=== PATIENT | female | born 1940 | race Caucasian/White ===

== ENCOUNTER 2019-12-28 01:37 | Inpatient (IN) | payer MEDICARE, MEDICAID, SELFPAY ==
[2019-12-28] VITALS (22 sets, daily range): BP systolic 91–172; BP diastolic 50–110; PULSE 76–103; RESP 15–74; TEMP 36.2–37.2; O2SAT 90–100; BMI 28.1
--- NOTE | 2019-12-28 | SCC_ITS ---
Procedure Done: Open reduction internal fixation left hip with intramedullary device 68.0 seconds of fluoroscopic guidance, for a cumulative dose of 7.62 mGy, was provided to Dr. Austin by the radiology department. C-arm images of the LEFT hip were saved for the patient's permanent record. [facility]
--- NOTE | 2019-12-28 | XR_ITS ---
WS: [id number] C-ARM RADIOGRAPHS LEFT HIP; 3 IMAGES HISTORY: OR PICS COMPARISON: 12/28/2019 Intraoperative imaging during intramedullary willam and screw fixation of the LEFT hip fracture. XR/XR hip LT 2-3V wo/w pel* [id number] IMPRESSION: Intraoperative imaging during LEFT hip fixation.
--- NOTE | 2019-12-28 01:50 | ED_ITS ---
Documented by User: JANICE Coronel 12/28/19 02:32 HPI - General Adult General: Chief complaint: Fall Stated complaint: HIP PAIN POST FALL Time Seen by Provider: 12/28/19 01:46 History of Present Illness: HPI narrative: Patient states that she was walking with her walker tonight leaving the bathroom and she tripped and fell and landed on her left hip and was not able to get up she complains about left hip pain MD complaint: Left hip pain Onset (ago): minute(s) Location: pelvis Radiation: non-radiation Severity: moderate Severity scale (1-10): 6 Quality: aching Pain Consistency: constant Relieving factors: immobilization Exacerbating factors: movement Associated symptoms: Reports no associated symptoms; Deny chest pain, dyspnea, headache(s), nausea, rash or vomiting Review of Systems Const: Denies: fever, chills or body aches Eyes: Denies: change in vision or blurry vision ENMT: Denies: throat pain or nasal congestion Card: Denies: chest pain or shortness of breath on exertion Resp: Denies: shortness of breath, productive cough or non-productive cough GI: Denies: abdominal pain, nausea or vomiting Musc: Reports: joint pain (Left hip); Denies: extremity pain Skin/Breast: Denies: rash Neuro: Denies: headache Psych: Denies: anxiety or depression Fede/Lymph: Denies: easy bruising PFSH ED PFSH: Medical History (Updated 12/28/19 @ 03:48 by Robert Alfonso DO) Bifascicular block Chronic kidney disease (CKD), stage IV (severe) Degenerative joint disease Diabetes Dyslipidemia GERD (gastroesophageal reflux disease) Hypertension Surgical History (Updated 12/28/19 @ 03:22 by Grabiel Fraga MD) H/O cardiac catheterization 2009, normal EF nonsignificant irregular coronary artery disease Hx of cholecystectomy S/P cataract surgery Family History (Updated 12/28/19 @ 03:20 by Grabiel Fraga MD) Denies family history of CAD (coronary artery disease) Clotting disorder Chronic kidney disease (CKD) Social History (Updated 12/28/19 @ 03:20 by Grabiel Fraga MD) Smoking and tobacco status: never smoked Alcohol intake: never Substance/Drug Use: never Lives independently: Yes Additional social history: Her sister has power of civil attorney named Sujatha Physical Exam Const: COMMON NORMALS: no apparent distress, average body habitus and oriented x3 HENMT: COMMON NORMALS: normocephalic HEAD & SCALP: normal to inspection and normocephalic FACE & SINUS: normal facial exam Eye: COMMON NORMALS: conjunctivae normal GENERAL EYE: normal appearance of both eyes CONJUNCTIVA: Yes conjunctivae normal Neck/C-Spine: COMMON NORMALS: no JVD Chest: COMMONS NORMALS: inspection of chest normal Resp: COMMON NORMALS: normal respiratory effort and clear to auscultation bilaterally AUSCULTATION: clear to auscultation bilaterally Cardio: COMMON NORMALS: no JVD, regular rate and regular rhythm RATE: regular rate RHYTHM: regular rhythm GI: COMMON NORMALS: normal to inspection, nondistended, normoactive bowel sounds Extremity: COMMON NORMALS: normal to inspection GENERAL: Yes other findings (Patient has tenderness to the left anterior aspect femoral neck area no bruising swelling noted leg does appear short but does not appear rotated good distal pulses) Neuro: COMMON NORMALS: oriented x3 MOTOR EXAM: other (Patient does have a slight tremor that happens occasionally which she says she is had for the last couple years) Course Vital Signs: Vital signs: Vital Signs Temperature 97.7 F 12/28/19 01:47 Pulse Rate 79 12/28/19 03:49 Respiratory Rate 18 12/28/19 03:49 Blood Pressure 133/110 12/28/19 03:49 Pulse Oximetry 97 12/28/19 03:49 MDM - General Adult MDM Narrative: Medical decision making narrative: Discussed case with Dr. Robert Alfonso and transferred care to him Lab Data: Labs: Lab Results 12/28/19 Range/Units 03:06 Sodium 142 (136-145) mmol/L Potassium 5.0 (3.5-5.1) mmol/L Chloride 110 H (98-107) mmol/L Carbon Dioxide 21 L (22-29) mmol/L Anion Gap 16.0 (5-19) BUN 5 L (8-23) mg/dL Creatinine 1.7 H (0.5-0.9) mg/dL Glucose 124 H (65-115) mg/dL Calculated Osmolal ity 291 (285-295) mOsm/k g Calcium 8.9 (8.5-10.5) mg/dL Total Bilirubin 0.3 (0.15-1.2) mg/dL AST 61 H (0-32) U/L ALT 35 H (0-33) U/L Alkaline Phosphata se 88 (35-105) IU/L Total Protein 5.9 L (6.6-8.7) g/dL Albumin 3.1 L (3.5-5.2) g/dL Globulin 2.8 (1.3-4.6) g/dL Discharge Plan Discharge Patient Disposition: Admitted As Inpatient Clinical Impression: Closed hip fracture Qualifiers: Encounter type: initial encounter Laterality: left Qualified Code(s): S72.002A - Fracture of unspecified part of neck of left femur, initial encounter for closed fracture Condition: Stable Referrals: Hardy Saab DO [Primary Care Provider] - Coding Level of Care Code ED Trackless Trolley Driver for [facility] Fwd Exam Comprehensive Documented by User: Robert Alfonso DO 12/28/19 03:51 HPI - General Adult General: Chief complaint: Fall Stated complaint: HIP PAIN POST FALL Time Seen by Provider: 12/28/19 01:46 [facility] ED PFSH: Medical History (Updated 12/28/19 @ 03:48 by Robert Alfonso DO) Bifascicular block Chronic kidney disease (CKD), stage IV (severe) Degenerative joint disease Diabetes Dyslipidemia GERD (gastroesophageal reflux disease) Hypertension Surgical History (Updated 12/28/19 @ 03:22 by Grabiel Fraga MD) H/O cardiac catheterization 2009, normal EF nonsignificant irregular coronary artery disease Hx of cholecystectomy S/P cataract surgery Family History (Updated 12/28/19 @ 03:20 by Grabiel Fraga MD) Denies family history of CAD (coronary artery disease) Clotting disorder Chronic kidney disease (CKD) Social History (Updated 12/28/19 @ 03:20 by Grabiel Fraga MD) Smoking and tobacco status: never smoked Alcohol intake: never Substance/Drug Use: never Lives independently: Yes Additional social history: Her sister has power of civil attorney named Sujatha Up Vital Signs: Vital signs: Vital Signs Temperature 97.7 F 12/28/19 01:47 Pulse Rate 79 12/28/19 03:49 Respiratory Rate 18 12/28/19 03:49 Blood Pressure 133/110 12/28/19 03:49 Pulse Oximetry 97 12/28/19 03:49 MDM - General Adult MDM Narrative: Medical decision making narrative: 79-year-old female who fell this morning, and fractured her left hip. She has an intertrochanteric fracture that is displaced. She will be admitted. We discussed admission with Dr. Fraga he will admit. Consult will be placed to Dr. Austin for orthopedics. She is not on anti-coagulation therapy. Lab Data: Labs: Lab Results 12/28/19 Range/Units 03:06 Sodium 142 (136-145) mmol/L Potassium 5.0 (3.5-5.1) mmol/L Chloride 110 H (98-107) mmol/L Carbon Dioxide 21 L (22-29) mmol/L Anion Gap 16.0 (5-19) BUN 5 L (8-23) mg/dL Creatinine 1.7 H (0.5-0.9) mg/dL Glucose 124 H (65-115) mg/dL Calculated Osmolal ity 291 (285-295) mOsm/k g Calcium 8.9 (8.5-10.5) mg/dL Total Bilirubin 0.3 (0.15-1.2) mg/dL AST 61 H (0-32) U/L ALT 35 H (0-33) U/L Alkaline Phosphata se 88 (35-105) IU/L Total Protein 5.9 L (6.6-8.7) g/dL Albumin 3.1 L (3.5-5.2) g/dL Globulin 2.8 (1.3-4.6) g/dL Discharge Plan Discharge Patient Disposition: Admitted As Inpatient Clinical Impression: Closed hip fracture Qualifiers: Encounter type: initial encounter Laterality: left Qualified Code(s): S72.002A - Fracture of unspecified part of neck of left femur, initial encounter for closed fracture Condition: Stable Referrals: Hardy Saab DO [Primary Care Provider] - Coding Level of Care Code ED Trackless Trolley Driver for [facility] Fwd Exam Comprehensive
--- NOTE | 2019-12-28 01:50 | XR_ITS ---
WS: [id number] PELVIS AND LEFT HIP HISTORY: pain COMPARISON: None available. LEFT hip: Acute comminuted fracture with impaction involving the LEFT hip. Fracture is predominantly intertrochanteric but also extends into the femoral neck. On the lateral projection there is anterior displacement of the distal fragment along with the impaction. Bones are osteopenic. Mild degenerative changes at the RIGHT hip. XR/XR hip LT 2-3V wo/w pel* [id number] IMPRESSION: 1. Acute impacted LEFT hip fracture with involvement of the neck and intertroc hanteric region. 2. Osteopenia.
[2019-12-28] MEDS: morphine 4 mg/mL SDV 1 mL IM (02:14)
[2019-12-28] MEDS: ondansetron 4 MG Tablet PO (02:15)
--- NOTE | 2019-12-28 02:23 | XR_ITS ---
WS: [id number] PORTABLE CHEST HISTORY: fractured hip COMPARISON: 04/18/2019 Lungs are well-aerated. Mild eventration of the RIGHT hemidiaphragm. 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 No pleural effusion or pneu mothorax. Cardiac size: Normal. Mediastinum/Aorta: Mild atherosclerosis. Resection distal RIGHT clavicle. XR/XR chest 1V portable [id number] IMPRESSION: Stable chest with no acute cardiopulmonary disease.
--- NOTE | 2019-12-28 03:16 | P.HP_ITS ---
Providers/Chief Complaint Primary Care Provider: Hardy Saab DO Chief Complaint: HIP PAIN POST FALL History of Present Illness Corie Tomas is a 79 year old female carries history of von Willebrand's disease, chronic kidney disease stage IV, insulin-dependent diabetes came in after sustaining a fall. Patient is stating that she lives alone, she manages her daily activities on her own, on December 13 she suffered from ankle sprain after tripping from her walker and stayed on the floor for 2 hours, experienced some bruising of left side of her chest, today she lost her balance and fell on the floor, she was not able to bear weight on left side, she called EMS who brought her here for further evaluation. Patient is not endorsing chest pain, palpitations, loss of consciousness, dysuria or seizures. She is not on aspirin or any anticoagulation. Diagnostic in the ER revealed normal hemodynamics, left-sided intertrochanteric fracture. She denies previous history of [place], CHF, coronary disease or stroke. Dr. Austin consulted. She has seen compliance examiner for her worsening chronic kidney disease and she does not want dialysis. Review of Systems Const: Denies: fever or chills Eyes: Denies: change in vision ENMT: Denies: throat pain Card: Denies: chest pain Resp: Denies: shortness of breath GI: Denies: abdominal pain : Denies: flank pain Musc: Reports: joint pain, joint stiffness, limited range of motion and muscle cramps; Denies: joint swelling or joint warmth Skin/Breast: Denies: rash or itching Neuro: Denies: headache Psych: Reports: anxiety and panic attacks Endo: Denies: excessive urination Fede/Lymph: Denies: easy bruising All/Imm: Denies: hives Medications/Allergies Home Medications Medication Instructions Recorded Confirmed Last Taken Type amlodipine 10 mg PO DAILY 12/28/19 12/28/19 12/27/19 History famotidine 20 mg PO QID 12/28/19 12/28/19 12/27/19 History hydrocodone-acetaminophen 1 tab PO Q6H 12/28/19 12/28/19 12/27/19 History losartan 25 mg PO DAILY 12/28/19 12/28/19 12/27/19 History rosuvastatin 40 mg PO DAILY 12/28/19 12/28/19 12/27/19 History trazodone 200 mg PO DAILY 12/28/19 12/28/19 12/27/19 History PFSH Acute PFSH: Medical History (Updated 12/28/19 @ 04:11 by Grabiel Fraga MD) Bifascicular block Chronic kidney disease (CKD), stage IV (severe) Degenerative joint disease Diabetes Dyslipidemia GERD (gastroesophageal reflux disease) Hypertension Von Willebrands disease Surgical History (Updated 12/28/19 @ 03:22 by Grabiel Fraga MD) H/O cardiac catheterization 2009, normal EF nonsignificant irregular coronary artery disease Hx of cholecystectomy S/P cataract surgery Family History (Updated 12/28/19 @ 03:20 by Grabiel Fraga MD) Denies family history of CAD (coronary artery disease) Clotting disorder Chronic kidney disease (CKD) Social History (Updated 12/28/19 @ 03:20 by Grabiel Fraga MD) Smoking and tobacco status: never smoked Alcohol intake: never Substance/Drug Use: never Lives independently: Yes Additional social history: Her sister has power of assistant county attorney named Sujatha Vitals/I&O/Wt Last Vital Signs Temp 97.7 F 12/28/19 01:47 Pulse 76 12/28/19 01:47 Resp 20 H 12/28/19 02:14 Pulse Ox 96 12/28/19 01:47 Weight last 48 hrs Weight 65.317 kg Physical Exam Narrative: EXAM NARRATIVE: Head to toe examination Patient currently in distress because of left-sided hip pain Seems to be having panic attack, she is extremely worried about her son and sister who has power of assistant county attorney S1, S2 tachycardia No signs of heart failure Abdomen soft nontender nondistended Neurologically nonfocal exam .Appears very anxious and irritable Left leg is shorter and rotated outwards as compared to the right leg Lungs are clear to auscultate Dorsalis pedis pulses 2+ bilaterally She has petechiae purpura around left side of her chest which she is endorsing that happened on 13 December Pertinent negatives No sign ischemia gangrene ulcer of lower extremity No signs of seizure or stroke No active bleeding Data : 12/28/19 03:06 A&P Assessment and plan (1) Closed hip fracture: Status: Acute Qualifiers: Encounter type: initial encounter Laterality: left Qualified Code(s): S72.002A - Fracture of unspecified part of neck of left femur, initial encounter for closed fracture (2) Von Willebrands disease: Status: Acute (3) Chronic kidney disease (CKD), stage IV (severe): Status: Acute Additional A&P Information Left intertrochanteric fracture Fracture after sustaining a fall due to loss of balance Analgesia with Dilaudid, along bowel regimen N.p.o. Orthopedic consulted D5 half-normal saline at 75 mL/h Her falls are secondary to losing balance which she is endorsing to her bad ankles, she has never experienced any palpitations, cardiac arrhythmia however she does have fascicular block, RCRI critreia class II risk with 6% 30-day risk of [place] and cardiac arrest, she lives independently seems to have moderate activity level, considering these 2 falls in less than 10 days I would recommend echo to make sure there is no w all motion abnormality, will get baseline troponin and EKG Chronic kidney disease stage IV Her baseline creatinine seems to be around 1.5-1.7 At home she takes losartan which I would hold for now Patient has refused dialysis in the past however no acute indication Von Willebrand's disease I am still waiting on her CBC No active bleeding, she is hemodynamically stable, she has petechiae of left side of her chest since 12/13 We will check CPK For DVT prophylaxis should be addressed carefully, currently on SCDs Full code N.p.o. Her son has power of assistant county attorney, her sister has been notified who is the second person on that document DVT prophylaxis: SCDs Attestations Medical Necessity Statement*: Anticipating stay in the hospital course more than 2 midnights currently has left-sided intertrochanteric fracture, Time Spent in Patient Care: 50 Coding Level of Care Code Acute Valuation Manager for [facility] Fwd Diagnoses Closed hip fracture S72.002A Encounter type: initial encounter Laterality: left Von Willebrands disease D68.0 Chronic kidney disease (CKD), stage IV (severe) N18.4
[2019-12-28 03:43] LABS: Alanine Aminotransferase 35 U/L (0-33); Albumin Level 3.1 g/dL (3.5-5.2); Alkaline Phosphatase 88 IU/L (35-105); Aspartate Amino Transferase 61 U/L (0-32); Blood Urea Nitrogen 5 mg/dL (8-23); Calcium 8.9 mg/dL (8.5-10.5); Carbon Dioxide 21 mmol/L (22-29); Chloride 110 mmol/L (98-107); Globulin 2.8 g/dL (1.3-4.6); Glucose 124 mg/dL (65-115); Osmolality Calculated 291 mOsm/kg (285-295); Sodium 142 mmol/L (136-145); Total Bilirubin 0.3 mg/dL (0.15-1.2); Total Protein 5.9 g/dL (6.6-8.7)
--- NOTE | 2019-12-28 03:51 | PC.NURSE ---
Flakito, Hospitalist at bedside. Recieved verbal order for Dilaudid 2mg IVP now.
[2019-12-28 03:52] LABS: Add Urine Microscopic? NO
[2019-12-28 04:00] LABS: Bilirubin Urine Neg (NEGATIVE); Blood Urine Neg (Negative); Glucose Urine UA Norm (Normal); Ketones Urine Negative (Negative); Leukocyte Esterase Urine Negative (Negative); Nitrate Urine Negative (Negative); Protein Urine Neg (Negative); Urine Appearance Clear (CLEAR); Urine Color Straw (Yellow); Urobilinogen Urine Norm (Negative); pH Urine 6.5 (5-7)
[2019-12-28] MEDS: HYDROmorphone 1 mg/mL INJ 1 mL 2 MG IVP ×4 (04:23→22:56)
--- NOTE | 2019-12-28 05:16 | PC.NURSE ---
Phlebotomy at bedside to draw labs
[2019-12-28 05:22] LABS: Basophils % 0.2 %; Hematocrit 31.6 % (37.0-47.0); Hemoglobin 9.8 g/dL (11.5-15.3); Lymphocytes # 0.9 10^3/uL (0.8-4.8); Lymphocytes % 8.4 %; Mean Corpuscular Hemoglobin 32.1 pg (28.0-34.0); Mean Corpuscular Volume 103.6 fL (81-99); Mean Platelet Volume 9.7 fL (7.4-10.4); Monocytes # 0.5 10^3/uL (0.2-0.9); Monocytes % 5.2 %; Neutrophils # 8.8 10^3/uL (1.8-7.7); Neutrophils % 85.9 %; Nucleated Red Blood Cells % 0 %; Platelet Count 195 10^3/cmm (130-400); Red Blood Count 3.05 10^6/uL (4.1-5.3); Red Cell Distribution Width 13.7 % (12.1-15.1); White Blood Count 10.2 10^3/uL (4.0-10.0)
--- NOTE | 2019-12-28 05:29 | USCV_ITS ---
Thom Corie Age: 79 Gender: F : 1940 Exam Date: 12/28/2019 07:17 Ordering Phys: Grabiel Fraga MD Technologist: Nadir Manzo Exam Location: [facility] – [place] Indication: PRE OP HIP BP: 123 / 69 HR: 97 Rhythm: Sinus Technical Quality: Suboptimal MEASUREMENTS (Male / Female) Normal Values 2D ECHO LV Diastolic Diameter PLAX 3.1 cm 4.2 - 5.9 / 3.9 - 5.3 cm LV Systolic Diameter PLAX 2.0 cm IVS Diastolic Thickness 1.1 cm 0.6 - 1.0 / 0.6 - 0.9 cm IVS Systolic Thickness 1.3 cm LVPW Diastolic Thickness 1.2 cm 0.6 - 1.0 / 0.6 - 0.9 cm LVPW Systolic Thickness 1.5 cm LVOT Diameter 2.0 cm LV Ejection Fraction 2D Teich 68.6 % LV Ejection Fraction MOD 2C 62.0 % LV Ejection Fraction 2C AL 65.1 % LA Diameter 3.7 cm LA Width 3.8 cm LA Height 3.7 cm RA Width 3.3 cm RA Height 3.9 cm Aorta at Sinotubular Diameter 2.9 cm M-MODE LV Diastolic Diameter MM 4.5 cm 4.2 - 5.9 / 3.9 - 5.3 cm LV Systolic Diameter MM 3.3 cm LV Ejection Fraction MM Teich 53.0 % IVS Diastolic Thickness MM 1.0 cm 0.6 - 1.0 / 0.6 - 0.9 cm IVS Systolic Thickness MM 1.5 cm LVPW Diastolic Thickness MM 1.3 cm 0.6 - 1.0 / 0.6 - 0.9 cm LVPW Systolic Thickness MM 1.8 cm RV Diastolic Diameter MM 1.8 cm Aortic Annulus Diameter 3.5 cm LA Ao Ratio MM 1.1 MV E Point Septal Separation 1.3 cm DOPPLER AV Peak Velocity 144.0 cm/s LVOT Peak Velocity 96.0 cm/s AV Area Cont Eq vti 2.0 cm squared AV Area Cont Eq pk 2.1 cm squared MV Area PHT 5.0 cm squared Mitral E to A Ratio 0.5 MV E' Velocity 9.0 cm/s Mitral E to MV E' Ratio 10.1 Mitral E to LV E' Lateral Ratio 8.7 Mitral E to LV E' Septal Ratio 12.1 TR Peak Velocity 146.0 cm/s TR Peak Gradient 8.5 mmHg TV Peak E Velocity 115.0 cm/s Right Atrial Pressure 3.0 mmHg Pulmonary Artery Systolic Pressu 11.5 mmHg PV Peak Velocity 101.0 cm/s FINDINGS Left Ventricle Normal left ventricular cavity size. Normal left ventricular systolic function. No regional wall motion abnormalities. Left ventricular ejection fraction is estimated at 55 %. Grade I/IV diastolic dysfunction (abnormal relaxation filling pattern), normal to mildly elevated filling pressures. Right Ventricle The right ventricle is normal in size and function. Right Atrium The right atrium is normal in size. Left Atrium The left atrium is normal in size. Mitral Valve Structurally normal mitral valve without significant stenosis or prolapse. There is no mitral regurgitation. Aortic Valve Structurally normal aortic valve without significant sclerosis or stenosis. There is no aortic regurgitation. Tricuspid Valve Structurally normal tricuspid valve without significant stenosis or regurgitation. Pulmonary artery systolic pressure is normal. Pulmonic Valve Structurally normal pulmonic valve without significant stenosis. There is no pulmonic regurgitation. Pericardium Normal pericardium without effusion. Aorta Normal ascending aorta dimension. CONCLUSIONS 1-Normal left ventricular cavity size. Normal left ventricular systolic function. No regional wall motion abnormalities. Left ventricular ejection fraction is estimated at 55 %. Grade I/IV diastolic dysfunction (abnormal relaxation filling pattern), normal to mildly elevated filling pressures. 2-Structurally normal mitral valve without significant stenosis or prolapse. There is no mitral regurgitation. 3-There is no pericardial effusion. 4-Pulmonary artery systolic pressure is within normal limits. 5-There are no prior echocardiogram studies to compare. Grabiel Parra MD (Electronically Signed) Final Date: 28 Dec 2019 17:05 S
[2019-12-28 05:31] LABS: INR 1.01 (0.8-1.2)
[2019-12-28] MEDS: dextrose 5%-sod chloride 0.45% 1,000 ML 75 ML IV ×2 (05:45→23:18)
[2019-12-28 06:11] LABS: Creatine Phosphokinase 167 U/L (26-192)
--- NOTE | 2019-12-28 10:13 | PC.CHAP ---
Pastoral Care Encounter/Spiritual Assessment Type of Contact [] Declined paint factory worker visit [] Patient/Family/Request visit [] Outpatient visit [] Follow-up visit [] Physician referral [] Code/Alert [x] Routine visit [] Staff referral [] Actively dying [] Patient sleeping [] Family support [] [] Out of room [] Palliative care [] [] Receiving care in room [] Pre-surgical visit [] Trauma [] Long length of stay [] ICU visit [] Other: Relational/Emotional Strength [] Patient feels connected with others/family/visitors/staff [] Distress [] Loneliness/isolation [] Abandonment Spirituality of Patient [] Person of Heavenly [] Attends Tenriism of their Heavenly [] Believes in Prayer [] Reads Bible or Alevism materials [] There are Spiritual issues to be addressed Electronic Test Technician Interventions [x] Prayer [] Active listening [] Non-anxious presence [] Spiritual/emotional support [] Crisis/trauma care [] Spiritual counseling [] Bereavement support [] Provided bereavement packet [] Provided Bible/devotional materials [] Provided toy/stuffed animal, coloring book to patient or family member [] Provided Communion [] Anointing/Beverly [] Salvation [x] Completed spiritual assessment [] Other: Impact on Illness or Injury [] Angry [x] Fearful [] Anxious [] Often cries [] Exhaustion [] Unable to work [] Unable to attend tenriism [] Unable to walk/stand [] Unable to read [] Unable to drive [] Unable to eat/drink [] Unable to sleep [] Unable to be with family [] Patient intubated [] Other: Summary Patient seems weak and frail. Patient drifting in and out of conversation. Patient believing she is having surgery Time spent with patient 15 min
--- NOTE | 2019-12-28 14:20 | P.PN_ITS ---
Subjective Subjective: Interval history: Patient complains of pain in her left hip. Has not had much relief from Dilaudid. Able to move her toes. Altha a little bit nauseated earlier. Denies chest pain or shortness of breath. Medications: Reviewed: Yes Vitals/I&O/Wt Last Vital Signs Temp 98.3 F 12/28/19 11:00 Pulse 78 12/28/19 11:00 Resp 20 H 12/28/19 13:25 BP 142/68 12/28/19 11:00 Pulse Ox 96 12/28/19 11:00 12/27/19 12/28/19 12/28/19 22:59 06:59 14:59 Output Total 1200 / 1200 Balance -1200 / -1200 Weight last 48 hrs Weight 65.317 kg Physical Exam Const: OTHER: Dozing but easily awakens,oriented x3, cooperative, a little slow to answer questions but answers all of them HENMT: OTHER: Normocephalic atraumatic, oropharynx clear with dry membranes Eye: OTHER: Pupils equally round and reactive to light Resp: OTHER: Clear to auscultation bilaterally, no wheezes, no accessory muscle use noted Cardio: OTHER: Regular rate and rhythm, no murmurs gallops or rubs. Pulses 1+ and equal at both feet. GI: OTHER: Abdomen soft, nontender, nondistended, positive bowel sounds : OTHER: Normal external genitalia, Ware Extremity: NARRATIVE EXTREMITY EXAM: Left lower extremity slightly rotated externally and shortened. Neuro: OTHER: Strength is equal in both feet. Sensation is equal in both feet. Face symmetric. Skin: NARRATIVE SKIN EXAM: Patient with bruising noted to the left upper chest, Multiple places to the left upper arm including an area with some active bleeding under a Tegaderm to the dorsum of the left forearm. She has some bruising in the outside of her right knee and hip. There is bruising at the left hip area. She has some bruising to the dorsum of both hands. No skin changes noted in the groin presently. See above Urinary Catheter Management^: Ware: Cath Placed During This Visit: yes Reason for Continuing Indwelling Catheter: Perioperative Use in Selected Surgeries Urinary Catheter Date of Insertion: 12/28/19 Urinary Catheter Time of Insertion: 03:49 Data : 12/28/19 14:50 12/28/19 03:06 Other Labs: Laboratory Tests 12/28/19 12/28/19 12/28/19 05:05 05:05 14:50 Hgb 9.8 L 9.0 L Hct 28.7 L MCV 104.4 H Plt Count 167 PT 13.60 H INR 1.01 APTT 12/28/19 14:50 Hgb Hct MCV Plt Count PT INR APTT 25.3 A&P Assessment and plan (1) Fall at home: Status: Acute Qualifiers: Encounter type: initial encounter Qualified Code(s): W19.XXXA - Unspecified fall, initial encounter; Y92.009 - Unspecified place in unspecified non-institutional (private) residence as the place of occurrence of the external cause (2) Closed hip fracture: Status: Deleted Qualifiers: Encounter type: initial encounter Laterality: left Qualified Code(s): S72.002A - Fracture of unspecified part of neck of left femur, initial encounter for closed fracture (3) Von Willebrands disease: Reviewed with the patient, she does report requiring treatment prior to surgery with von Willebrand factor one previous time when she lived in [place] and 2005 if she recalls correctly. She does not know what type of von Willebrand's that she has. Status: Chronic (4) Chronic kidney disease (CKD), stage IV (severe): Secondary to diabetic nephropathy according to some old records Status: Chronic (5) Hypertension: Status: Chronic Qualifiers: Hypertension type: renovascular hypertension Qualified Code(s): I15.0 - Renovascular hypertension (6) Diabetes: Type currently unknown. Patient was diagnosed as a teenager. nina alcantara she is on insulin now but years ago she was on a on oral medications. Status: Chronic (7) Dyslipidemia: Status: Chronic Additional A&P Information Stat CBC and PTT Will go on and administer von Willebrand factor/factor VIII prior to surgery >> I reviewed this with patient, the reasons for administering, potential risk and benefits as well as potential side effects. She did agree and at such time reported that she had had some medication to keep her from bleeding from von Willebrand's prior to his surgery some years ago as noted. Discussed with Dr. Austin as well as anesthesia Type and screen No contraindication to proceeding to surgery We will review home medications postoperatively to consider resumption Pain control, monitoring response to this Sliding scale insulin given history of diabetes reported Continue Ware catheter at least now in the perioperative timeframe but will need to discontinue To follow-up echocardiogram report SCDs for DVT prophylaxis Full code Patient was given an opportunity to ask questions which were answered Attestations Medical Necessity Statement*: Requires ongoing inpatient stay for continued management of hip fracture status post fall. Plans for surgical intervention today. Coding Level of Care Code Acute Coremaking Supervisor for Chg Fwd Diagnoses Fall at home W19.XXXA; Y92.009 Encounter type: initial encounter Closed hip fracture S72.002A Encounter type: initial encounter Laterality: left Von Willebrands disease D68.0 Chronic kidney disease (CKD), stage IV (severe) N18.4 Hypertension I15.0 Hypertension type: renovascular hypertension Diabetes E11.9 Dyslipidemia E78.5
--- NOTE | 2019-12-28 14:47 | P.ANESASSM_ITS ---
Pre-Anesthetic Assessment Pre-Anesthetic Assessment: Height/Weight: Height 1.52 m Weight 65.317 kg Temp Pulse Resp BP Pulse Ox 98.3 F 78 20 H 142/68 96 12/28/19 11:00 12/28/19 11:00 12/28/19 13:25 12/28/19 11:00 12/28/19 11:00 Preop Diagnosis: left femoral neck fracture Proposed Procedure: Operation Date: 12/28/19 14:05 Proposed Procedures p Trochanteric Femoral Nail(Left) - Jorge Austin MD Was Beta Alona taken within 24 hours: N/A Last intake: NPO > 8 hrs Social: Social History: No alcohol and No tobacco Exam: Pre-Anes Outpt Exam: alert, oriented x 3, clear to auscultation bilaterally and regular rate & rhythm Airway: Cervical ROM: WNL MP: 3 Additional comments: missing Pulmonary: Pulmonary: None reported CV/HEM: Comments: fasicular block; von willebrand's disese : : Chronic renal failuer Metabolic: Metabolic: DM and Hyperlipidemia Anesthetic Plan: ASA status: 3 Anesthesia: General Meds/Allergies Current Medications: Current Medications Generic Name Dose Route Start Last Admin Trade Name Freq PRN Reason Stop Dose Admin Hydromorphone HCl 2 mg 12/28/19 05:29 12/28/19 13:25 Dilaudid Inj IVP 2 mg Q4H PRN Administration Pain Dextrose/Sodium Ch loride 1,000 mls @ 75 ml s/hr 12/28/19 05:29 12/28/19 05:45 Dextrose 5%-Sod Chloride 0.45% IV 75 mls/hr .[id number] HELENA Administration Senna/Docusate Sod ium 1 tab 12/28/19 09:00 12/28/19 09:33 Senna-S PO Not Given BID HELENA PFSH Anesthesia PFSH: Medical History (Updated 12/28/19 @ 04:11 by Grabiel Fraga MD) Bifascicular block Chronic kidney disease (CKD), stage IV (severe) Degenerative joint disease Diabetes Dyslipidemia GERD (gastroesophageal reflux disease) Hypertension Von Willebrands disease Surgical History (Updated 12/28/19 @ 03:22 by Grabiel Fraga MD) H/O cardiac catheterization 2009, normal EF nonsignificant irregular coronary artery disease Hx of cholecystectomy S/P cataract surgery Family History (Updated 12/28/19 @ 03:20 by Grabiel Fraga MD) Denies family history of CAD (coronary artery disease) Clotting disorder Chronic kidney disease (CKD) Social History (Updated 12/28/19 @ 03:20 by Grabiel Fraga MD) Smoking and tobacco status: never smoked Alcohol intake: never Lives independently: Yes Additional social history: Her sister has power of back wedger named Sujatha Data Anesthesia CBC & Chem 7: 12/28/19 05:05 12/28/19 03:06 Other Labs: Laboratory Results - last 48 hr 12/28/19 12/28/19 12/28/19 03:06 03:20 05:05 WBC 10.2 H RBC 3.05 L Hgb 9.8 L Hct 31.6 L MCV 103.6 H MCH 32.1 MCHC 31.0 RDW 13.7 Plt Count 195 MPV 9.7 Neut % (Auto) 85.9 Lymph % (Auto) 8.4 [place] % (Auto) 5.2 Eos % (Auto) 0.0 Baso % (Auto) 0.2 Neut # (Auto) 8.8 H Lymph # (Auto) 0.9 [place] # (Auto) 0.5 Eos # (Auto) 0.0 Baso # (Auto) 0.0 Nucleated RBC % (auto) 0 Nucleated RBCs # 0.0 PT INR Sodium 142 Potassium 5.0 Chloride 110 H Carbon Dioxide 21 L Anion Gap 16.0 BUN 5 L Creatinine 1.7 H Glucose 124 H Calculated Osmolality 291 Calcium 8.9 Total Bilirubin 0.3 AST 61 H ALT 35 H Alkaline Phosphatase 88 Creatine Kinase Total Protein 5.9 L Albumin 3.1 L Globulin 2.8 Urine Color Straw Urine Appearance Clear Urine pH 6.5 Ur Specific [place] 1.000 L Urine Protein Neg Urine Glucose (UA) Norm Urine Ketones Negative Urine Blood Neg Urine Nitrate Negative Urine Bilirubin Neg Urine Urobilinogen Norm Ur Leukocyte Esterase Negative 12/28/19 12/28/19 05:05 05:05 WBC RBC Hgb Hct MCV MCH MCHC RDW Plt Count MPV Neut % (Auto) Lymph % (Auto) [place] % (Auto) Eos % (Auto) Baso % (Auto) Neut # (Auto) Lymph # (Auto) [place] # (Auto) Eos # (Auto) Baso # (Auto) Nucleated RBC % (auto) Nucleated RBCs # PT 13.60 H INR 1.01 Sodium Potassium Chloride Carbon Dioxide Anion Gap BUN Creatinine Glucose Calculated Osmolality Calcium Total Bilirubin AST ALT Alkaline Phosphatase Creatine Kinase 167 Total Protein Albumin Globulin Urine Color Urine Appearance Urine pH Ur Specific [place] Urine Protein Urine Glucose (UA) Urine Ketones Urine Blood Urine Nitrate Urine Bilirubin Urine Urobilinogen Ur Leukocyte Esterase Cardiac Studies: No Data to Display
[2019-12-28 15:01] LABS: Basophils % 0.3 %; Hematocrit 28.7 % (37.0-47.0); Lymphocytes # 1.6 10^3/uL (0.8-4.8); Mean Corpuscular HGB Conc 31.4 g/dL (30.0-36.0); Mean Corpuscular Hemoglobin 32.7 pg (28.0-34.0); Mean Corpuscular Volume 104.4 fL (81-99); Mean Platelet Volume 9.2 fL (7.4-10.4); Monocytes # 0.7 10^3/uL (0.2-0.9); Monocytes % 8.7 %; Neutrophils # 5.7 10^3/uL (1.8-7.7); Neutrophils % 70.9 %; Nucleated Red Blood Cells % 0 %; Platelet Count 167 10^3/cmm (130-400); Red Blood Count 2.75 10^6/uL (4.1-5.3); Red Cell Distribution Width 14.1 % (12.1-15.1)
[2019-12-28 15:14] LABS: Partial Thromboplastin Time 25.3 SECONDS (23.9-36.7)
[2019-12-28 16:14] LABS: Glucose Point of Care 131 mg/dL (70-110)
--- NOTE | 2019-12-28 16:26 | PM.CONSULT ---
Providers/Reason For Consult Consulting Physican/Specialty*: Jorge Austin, orthopedic surgery Reason for Consult*: Left intertrochanteric hip fracture Attending Physician: Nannette Marroquin MD Primary Care Provider: Hardy Saab DO History of Present Illness History of Present Illness Corie Tomas is a 79 year old female who lost her balance and fell at home with a resulting left hip fracture. He was called by EMS and brought a here to our emergency room. Radiographs revealed a left intratrochanteric hip fracture. Patient previously lived at home alone and was able to manage her daily activities. She had a previous fall in November. Review of Systems General: Reports: 10 or more systems reviewed and unremarkable except in HPI and below Musc: Reports: joint pain and joint stiffness Meds/Allergies Home Medications and Allergies Home Medications Medication Instructions Recorded Confirmed Last Taken Type amlodipine 10 mg PO DAILY 12/28/19 12/28/19 12/27/19 History famotidine 20 mg PO QID 12/28/19 12/28/19 12/27/19 History hydrocodone-acetaminophen 1 tab PO Q6H 12/28/19 12/28/19 12/27/19 History losartan 25 mg PO DAILY 12/28/19 12/28/19 12/27/19 History rosuvastatin 40 mg PO DAILY 12/28/19 12/28/19 12/27/19 History trazodone 200 mg PO DAILY 12/28/19 12/28/19 12/27/19 History Allergies Allergy/AdvReac Type Severity Reaction Status Date / Time Penicillins Allergy Unknown Unknown Verified 12/28/19 16:27 Sulfa (Sulfonamide Allergy Unknown Unknown Verified 12/28/19 16:27 Antibiotics) aspirin Allergy ALGY-Rash Verified 12/28/19 16:27 Current Medications Current Medications Generic Name Dose Route Start Last Admin Trade Name Freq PRN Reason Stop Dose Admin Hydromorphone HCl 2 mg 12/28/19 05:12/28/19 13:25 Dilaudid Inj IVP 2 mg Q4H PRN Administration Pain Dextrose/Sodium Chloride 1,000 mls @ 75 mls/hr 12/28/19 05:29 12/28/19 05:45 Dextrose 5%-Sod Chloride 0.45% IV 75 mls/hr .[id number] HELENA Administration Senna/Docusate Sodium 1 tab 12/28/19 09:00 12/28/19 09:33 Senna-S PO Not Given BID HELENA PFSH Acute PFSH: Medical History (Updated 12/28/19 @ 16:08 by Nannette Marroquin MD) Bifascicular block Chronic kidney disease (CKD), stage IV (severe) Degenerative joint disease Diabetes Dyslipidemia GERD (gastroesophageal reflux disease) Hypertension Von Willebrands disease Surgical History (Updated 12/28/19 @ 03:22 by Grabiel Fraga MD) H/O cardiac catheterization 2009, normal EF nonsignificant irregular coronary artery disease Hx of cholecystectomy S/P cataract surgery Family History (Updated 12/28/19 @ 03:20 by Grabiel Fraga MD) Denies family history of CAD (coronary artery disease) Clotting disorder Chronic kidney disease (CKD) Social History (Updated 12/28/19 @ 03:20 by Grabiel Fraga MD) Smoking and tobacco status: never smoked Alcohol intake: never Lives independently: Yes Additional social history: Her sister has power of resident care assistant named Sujatha Vitals/I&O/Wt Last Vital Signs Temp 98.3 F 12/28/19 11:00 Pulse 78 12/28/19 11:00 Resp 20 H 12/28/19 13:25 BP 142/68 12/28/19 11:00 Pulse Ox 96 12/28/19 11:00 12/28/19 12/28/19 12/28/19 06:59 14:59 22:59 Output Total 1200 / 1200 Balance -1200 / -1200 Weight last 48 hrs Weight 144 lb Physical Exam Narrative: EXAM NARRATIVE: The patient is a elderly female supine in bed. There is shortening and external rotation of her left hip. Skin is exquisite pain with motion of the left hip. Is a palpable left dorsalis pedis pulse. She will flex extend her toes and her ankle on the left. Her sensation is grossly intact to light touch. She has no pain with her upper extremities or right lower extremity through range of motion Urinary Catheter Management^: Ware: Cath Placed During This Visit: yes Reason for Continuing Indwelling Catheter: Perioperative Use in Selected Surgeries Urinary Catheter Date of Insertion: 12/28/19 Urinary Catheter Time of Insertion: 03:49 Data Imaging^: Xray Ortho: My impression: Radiographs are reviewed of the pelvis and left hip. The patient has a displaced left intratrochanteric hip fracture. A&P Additional A&P Information Displaced left intratrochanteric hip fracture. I discussed options with the family. To minimize pain and allow the patient to be mobilized I suggested open reduction internal fixation. I discussed options with the patient.. I told the patient we could treat this nonoperatively but certainly they would be at risk for medical problems without surgery. Theywould have problems with pain that would require narcotics for pain control. They would require a long period of bedrest senior developer risk for pneumonia and skin breakdown. I discussed surgical intervention with the patient. I told them with open reduction internal fixation they should be able to be mobilized and resume ambulatory status. We can eliminate the problems associated with prolonged bed rest and would have better control of pain. Certainly there would be inherent risk with surgery. These would would include the risk of cardiac complications, stroke, infection, and even . I discussed risk of any orthopedic implant including nonunion, malunion, a component failure. I discussed the possible need for component removal. I discussed risk of deep venous thromboses and pulmonary emboli that are present with any treatment and the importance of DVT prophylaxis. The patient expressed good understanding of alternative treatments, seem to comprehend, and agrees to surgical intervention. The patient has medical comorbidities including von Willebrand's disease. She is scheduled to receive von Willebrand factor and proceed with surgery thereafter. Coding Level of Care Code Acute Paper Machine Tender for Camilla Solis
--- NOTE | 2019-12-28 18:44 | P.OP_ITS ---
Operative Report Date of procedure: December 28, 2019 Pre-op Diagnosis: Left intertrochanteric hip Post-op diagnosis: same Post-op Findings: Same Procedure Done: Open reduction internal fixation left hip with intramedullary device Implants: Bardwell gamma nail 11 x 340 mm 95 mm standard lag screw Pathology: none sent Surgeon: Jorge Austin Anesthesia: General Estimated blood loss (mL): 100 Findings: Patient had a comminuted left intertrochanteric hip fracture consisting of a greater trochanter, head/neck, and shaft fragments Condition: stable Disposition: PACU Procedure: The patient was taken to the operating room. He was given 1 g of Ancef. He was positioned on the fracture table with the right lower extremity in gentle traction. A timeout was performed. A 2 cm long incision was made proximal to the greater trochanter scalpel blade. Dissection was carried down to tip the greater trochanter. A guidepin was passed manually from the tip of the trochanter down the shaft. The proximal reamer was utilized to open up the proximal canal. An 11 mm 340 mm Bardwell gamma nail was passed down the canal without difficulty. Under visualization of fluoroscopy a guidepin was driven up into the head and neck at 125? angle. It was measured at 95 mm in length. A 95 mm lag screw was then placed and locked into place. Compression applied across the fracture and the leg screw stabilized with the proximal locking bolt. Intraoperative imaging was obtained verifying satisfactory position of the hard kunz and reduction of the fracture. Deep tissues were closed with 0 Vicryl as were subcutaneous tissues. The skin was closed with skin sandra. Sterile dressings were applied. The patient was extubated and taken to recovery room in stable condition.
--- NOTE | 2019-12-28 18:56 | SUR.PHASEI ---
1846 PATIENT TO PACU AT THIS TIME FROM OR AT THIS TIME. PATIENT NOTED TO BE RESTLESS. DRESSING DRY AND INTACT TO LEFT HIP. WATSON CATH IN PLACE, SECURED TO RIGHT LEG, DRAINING CLEAR, YELLOW URINE. PATIENT PLACED ON NC AT 3L, SPO2 94%.
--- NOTE | 2019-12-28 18:58 | SUR.PHASEI ---
185 FIRST ICE PLACED TO LEFT HIP.
[2019-12-28] MEDS: meperidine 50 mg/mL INJ 12.5 MG IVP (19:14)
[2019-12-28] MEDS: fentaNYL 50 mcg/mL INJ 2mL IVP (19:25)
--- NOTE | 2019-12-28 19:47 | SUR.PHASEI ---
193 PATIENT TO MED SURG AT THIS TIME FROM PACU. PATIENT NOTED TO BE RESTING WITH EYES CLOSED. RR EVEN AND UNLABORED. DRESSING TO LEFT HIP, CDI, WITH FIRST ICE IN PLACE. PATIENT LEFT PEDAL PULSE MARKED, STRONG. WHEN THIS NURSE MOVED PATIENTS BED, PATIENT BEGAN TO SAY NO, NO, NO, DON'T TAKE ME THIS NURSE ATTEMPTED TO REORIENT PATIENT, UNSUCCESSFUL. WHEN ARRIVING TO MED SURG, NURSE BEGIN CALLING THIS NURSE A KILLER, STATING TAKE ME TO MY ROOM VITALS STABLE. CARE ASSUMED BY PRIMARY NURSE AT THIS TIME. THIS NURSE REMAINED WITH PATIENT UNTIL 1944.
[2019-12-28] MEDS: LORazepam 2 mg/mL INJ 1 mL 1 MG IVP (20:16)
[2019-12-28 21:38] LABS: Glucose Point of Care 162 mg/dL (70-110)
[2019-12-29] VITALS (13 sets, daily range): BP systolic 94–159; BP diastolic 50–80; PULSE 66–95; RESP 16–22; TEMP 35.9–37.3; O2SAT 90–98
[2019-12-29] MEDS: HYDROmorphone 1 mg/mL INJ 1 mL 2 MG IVP ×2 (03:42→09:10)
[2019-12-29 05:11] LABS: Basophils % 0.1 %; Hemoglobin 7.8 g/dL (11.5-15.3); Lymphocytes # 1.3 10^3/uL (0.8-4.8); Lymphocytes % 18.2 %; Mean Corpuscular Hemoglobin 32.6 pg (28.0-34.0); Mean Corpuscular Volume 108.8 fL (81-99); Mean Platelet Volume 10.1 fL (7.4-10.4); Monocytes # 0.6 10^3/uL (0.2-0.9); Monocytes % 8.8 %; Neutrophils % 72.6 %; Nucleated Red Blood Cells % 0 %; Platelet Count 145 10^3/cmm (130-400); Red Blood Count 2.39 10^6/uL (4.1-5.3); Red Cell Distribution Width 14.1 % (12.1-15.1); White Blood Count 6.9 10^3/uL (4.0-10.0)
[2019-12-29 05:36] LABS: Anion Gap 11.3 (5-19); Blood Urea Nitrogen 8 mg/dL (8-23); Calcium 7.4 mg/dL (8.5-10.5); Carbon Dioxide 20 mmol/L (22-29); Chloride 106 mmol/L (98-107); Glucose 488 mg/dL (65-115); Osmolality Calculated 294 mOsm/kg (285-295); Potassium 4.3 mmol/L (3.5-5.1); Sodium 133 mmol/L (136-145)
--- NOTE | 2019-12-29 05:45 | PC.NURSE ---
12/28/19 2256 Gave 1ml Dilaudid. Did not see need to give other 1ml r/t pt condition/ pt sleeping after first ml. 1ml dilaudid wasted. Carlene.
[2019-12-29 06:32] LABS: Glucose Point of Care 192 mg/dL (70-110)
--- NOTE | 2019-12-29 07:53 | PM.PN ---
Subjective Subjective: Interval history: Patient awake and conversive. Complaing of being cold. Pain Ok Vitals/I&O/Wt Last Vital Signs Temp 98.4 F 12/29/19 07:18 Pulse 89 12/29/19 07:18 Resp 20 H 12/29/19 07:18 BP 130/76 12/29/19 07:18 Pulse Ox 96 12/29/19 07:18 12/28/19 12/29/19 12/29/19 22:59 06:59 14:59 Intake Total 1150 / 1150 Output Total 200 / 1400 175 / 1575 Balance 950 / -250 -175 / -425 Weight last 48 hrs Weight 144 lb Physical Exam Narrative: EXAM NARRATIVE: Minimal sanguinaous staining left hp dressing Urinary Catheter Management^: Ware: Cath Placed During This Visit: yes Reason for Continuing Indwelling Catheter: Required Immobilization for Trauma or Surgery or Anesthesia Urinary Catheter Date of Insertion: 12/28/19 Urinary Catheter Time of Insertion: 03:49 Data : 12/29/19 04:08 12/29/19 04:08 A&P Assessment and plan (1) Postoperative state: Patient can be mobilized with therapy. She may weight-bear as tolerated. Will ultimately need [facility] transfer Status: Acute Attestations Medical Necessity Statement*: As per medicine Coding Level of Care Code Acute Air Breaker Operator for Camilla Solis Diagnoses Postoperative state Z98.890
[2019-12-29] MEDS: amlodipine 5 mg Tablet PO (08:07)
[2019-12-29] MEDS: HYDROcodone-acetaminophen 5-325 mg Tablet PO ×3 (08:07→17:25)
[2019-12-29] MEDS: atorvastatin 40 mg Tablet 80 MG PO (08:07)
[2019-12-29] MEDS: sennosides-docusate Tablet 1 TAB PO ×2 (08:07→17:25)
[2019-12-29] MEDS: famotidine 20 mg Tablet PO ×2 (08:07→17:25)
[2019-12-29] MEDS: sodium chloride 0.9% (100 ml) 100 ML 50 ML (10:41)
--- NOTE | 2019-12-29 10:52 | P.PN_ITS ---
Subjective Subjective: Interval history: Patient lethargic this morning, but will awaken. Quickly back to sleep. Has received some hydrocodone and Dilaudid this morning for pain. Currently receiving transfusion. Vitals/I&O/Wt Last Vital Signs Temp 98.2 F 12/29/19 10:34 Pulse 78 12/29/19 10:34 Resp 16 12/29/19 10:34 BP 94/50 12/29/19 10:34 Pulse Ox 94 12/29/19 10:34 12/28/19 12/29/19 12/29/19 22:59 06:59 14:59 Intake Total 1150 / 1150 60 / 60 Output Total 200 / 1400 175 / 1575 Balance 950 / -250 -175 / -425 60 / 60 Weight last 48 hrs Weight 65.317 kg Physical Exam Const: OTHER: Dozing but easily awakens,oriented x3, cooperative, a little slow to answer questions but answers all of them HENMT: OTHER: Normocephalic atraumatic, oropharynx clear with dry membranes Eye: OTHER: Pupils are equally reactive, about 5 mm to 3 mm, not pinpoint Resp: OTHER: Clear to auscultation bilaterally Cardio: OTHER: Regular rate and rhythm GI: OTHER: Abdomen soft, nontender, hypoactive bowel sounds : OTHER: Ware noted Extremity: NARRATIVE EXTREMITY EXAM: Icepack in place to the left hip. Surgical dressings with a scant amount of serous drainage. Some bruising noted laterally, minor. Neuro: OTHER: Able to move toes on both feet, follows simple commands though lethargic as already noted Skin: NARRATIVE SKIN EXAM: Patient still with bright red blood oozing from skin tear on the left forearm. There is some extension of the bruising to the right forearm there are bruising to the hand is unchanged. Some of this may be from lab draw. Labs showed blood sugar of 488 this morning however [id number] glucose around the same time was 192. I am thinking that lab may have been drawn from where her D5 normal saline was infusing. Urinary Catheter Management^: Ware: Cath Placed During This Visit: yes Reason for Continuing Indwelling Catheter: Required Immobilization for Trauma or Surgery or Anesthesia Urinary Catheter Date of Insertion: 12/28/19 Urinary Catheter Time of Insertion: 03:49 Data : 12/29/19 04:08 05/12/20 04:08 Other data: ECHO CONCLUSIONS 1-Normal left ventricular cavity size. Normal left ventricular systolic function. No regional wall motion abnormalities. Left ventricular ejection fraction is estimated at 55 %. Grade I/IV diastolic dysfunction (abnormal relaxation filling pattern), normal to mildly elevated filling pressures. 2-Structurally normal mitral valve without significant stenosis or prolapse. There is no mitral regurgitation. 3-There is no pericardial effusion. 4-Pulmonary artery systolic pressure is within normal limits. 5-There are no prior echocardiogram studies to compare. A&P Assessment and plan (1) Acute blood loss anemia: Receiving transfusion of blood products today Status: Acute (2) Altered mental status: I am not certain presently if this is from pain medications or other process. Leaning towards pain medicines based on how she was yesterday but will need to monitor. Status: Acute Qualifiers: Altered mental status type: disorientation Qualified Code(s): R41.0 - Disorientation, unspecified (3) Fall at home: Accidental/mechanical Status: Acute Qualifiers: Encounter type: initial encounter Qualified Code(s): W19.XXXA - Unspecified fall, initial encounter; Y92.009 - Unspecified place in unspecified non-institutional (private) residence as the place of occurrence of the external cause (4) Intertrochanteric fracture of left hip: Postop day 1 Status: Acute Qualifiers: Encounter type: initial encounter Fracture alignment: nondisplaced Fracture type: closed Qualified Code(s): S72.145A - Nondisplaced intertrochanteric fracture of left femur, initial encounter for closed fracture (5) Von Willebrands disease: Reviewed with the patient, she does report requiring treatment prior to surgery with von Willebrand factor one previous time when she lived in [place] and 2005 if she recalls correctly. She does not know what type of von Willebrand's that she has. 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 Has had creatinine as high as 4 in the past. Status: Chronic (7) Hypertension: Status: Chronic Qualifiers: Hypertension type: renovascular hypertension Qualified Code(s): I15.0 - Renovascular hypertension (8) Diabetes: Type currently unknown. Patient was diagnosed as a teenager. Sounds like she is on insulin now but years ago she was on a on oral medications. Will need to clarify when she is more alert. Today with significant hyperglycemia on lab draws but I think it was iatrogenic as [id number] glucose was less than half of that. Status: Chronic (9) Dyslipidemia: On statin Status: Chronic Additional A&P Information Agree with transfusion Serial H&H Do have another dose of humate if needed Add low-dose of long-acting insulin and continue sliding scale Adjust IVFs Add neurochecks Adjust pain control to see if she will be more alert Sliding scale insulin given history of diabetes reported Continue Ware catheter per usual post op protocol Echo report noted SCDs for DVT prophylaxis PT to see when more alert Full code Will need skilled facility at [place] Attestations Medical Necessity Statement*: Requires ongoing inpatient stay for continued management postoperative from hip fracture repair Coding Level of Care Code Acute Sprayer Automatic Spray Machine for Camilla Fwd Diagnoses Acute blood loss anemia D62 Altered mental status R41.0 Altered mental status type: disorientation Fall at home W19.XXXA; Y92.009 Encounter type: initial encounter Intertrochanteric fracture of left hip S72.145A Encounter type: initial encounter Fracture alignment: nondisplaced Fracture type: closed Von Willebrands disease D68.0 Chronic kidney disease (CKD), stage IV (severe) N18.4 Hypertension I15.0 Hypertension type: renovascular hypertension Diabetes E11.9 Dyslipidemia E78.5
--- NOTE | 2019-12-29 11:43 | PC.CHAP ---
Pastoral Care Encounter/Spiritual Assessment Type of Contact [] Declined weatherseal technician visit [] Patient/Family/Request visit [] Outpatient visit [] Follow-up visit [] Physician referral [] Code/Alert [] Routine visit [] Staff referral [] Actively dying [] Patient sleeping [] Family support [] [] Out of room [] Palliative care [] [] Receiving care in room [] Pre-surgical visit [] Trauma [] Long length of stay [] ICU visit [x] Other: intubated Relational/Emotional Strength [] Patient feels connected with others/family/visitors/staff [] Distress [] Loneliness/isolation [] Abandonment Spirituality of Patient [] Person of Heavenly [] Attends Islam of their Heavenly [] Believes in Prayer [] Reads Bible or Congregation materials [] There are Spiritual issues to be addressed Retail Merchandiser Interventions [] Prayer [] Active listening [] Non-anxious presence [] Spiritual/emotional support [] Crisis/trauma care [] Spiritual counseling [] Bereavement support [] Provided bereavement packet [] Provided Bible/devotional materials [] Provided toy/stuffed animal, coloring book to patient or family member [] Provided Communion [] Anointing/[place] [] Salvation [] Completed spiritual assessment [] Other: Impact on Illness or Injury [] Angry [] Fearful [] Anxious [] Often cries [] Exhaustion [] Unable to work [] Unable to attend anabaptist [] Unable to walk/stand [] Unable to read [] Unable to drive [] Unable to eat/drink [] Unable to sleep [] Unable to be with family [x] Patient intubated [] Other: Summary Had prayer Time spent with patient 5 mins
--- NOTE | 2019-12-29 11:47 | PC.OT ---
OT EVALUATION ATTEMPTED. PATIENT IS SLEEPING SOUNDLY AND RECEIVING BLOOD. TO ATTEMPT AGAIN IN P.M.
[2019-12-29 12:21] LABS: Glucose Point of Care 155 mg/dL (70-110)
--- NOTE | 2019-12-29 17:39 | PC.PT ---
PT note; unable to arouse patient for participation in a.m.; patient partially awake but too confused to participate with physical therapy evaluation this p.m.; will reattempt tomorrow
[2019-12-29 17:44] LABS: Glucose Point of Care 148 mg/dL (70-110)
[2019-12-29] MEDS: acetaminophen 325 mg Tablet 650 MG PO (20:21)
[2019-12-29 21:15] LABS: Glucose Point of Care 144 mg/dL (70-110)
[2019-12-29] MEDS: ziprasidone hcl 20 mg Capsule PO (22:34)
[2019-12-30] VITALS (14 sets, daily range): BP systolic 131–168; BP diastolic 48–82; PULSE 66–101; RESP 16–22; TEMP 36.4–37.1; O2SAT 92–99
[2019-12-30] MEDS: HYDROcodone-acetaminophen 5-325 mg Tablet PO ×4 (01:20→21:27)
[2019-12-30 02:14] LABS: Hematocrit 31.6 % (37.0-47.0); Hemoglobin 9.8 g/dL (11.5-15.3)
[2019-12-30 05:47] LABS: Hematocrit 31.7 % (37.0-47.0); Hemoglobin 9.8 g/dL (11.5-15.3)
[2019-12-30 06:51] LABS: Glucose Point of Care 140 mg/dL (70-110)
[2019-12-30 06:53] LABS: Anion Gap 12.1 (5-19); Blood Urea Nitrogen 12 mg/dL (8-23); Calcium 8.8 mg/dL (8.5-10.5); Carbon Dioxide 21 mmol/L (22-29); Chloride 106 mmol/L (98-107); Glucose 133 mg/dL (65-115); Magnesium 2.2 mg/dL (1.7-2.3); Osmolality Calculated 278 mOsm/kg (285-295); Potassium 4.1 mmol/L (3.5-5.1); Sodium 135 mmol/L (136-145)
[2019-12-30] MEDS: famotidine 20 mg Tablet PO ×2 (09:46→17:34)
[2019-12-30] MEDS: sennosides-docusate Tablet 1 TAB PO ×2 (09:46→17:34)
[2019-12-30] MEDS: atorvastatin 40 mg Tablet 80 MG PO (09:46)
[2019-12-30] MEDS: amlodipine 5 mg Tablet PO (09:46)
--- NOTE | 2019-12-30 10:17 | PC.CHAP ---
Pastoral Care Encounter/Spiritual Assessment Type of Contact [] Declined tour conductor visit [] Patient/Family/Request visit [] Outpatient visit [x] Follow-up visit [] Physician referral [] Code/Alert [x] Routine visit [] Staff referral [] Actively dying [] Patient sleeping [] Family support [] [] Out of room [] Palliative care [] [] Receiving care in room [] Pre-surgical visit [] Trauma [] Long length of stay [] ICU visit [] Other: Relational/Emotional Strength [] Patient feels connected with others/family/visitors/staff [] Distress [] Loneliness/isolation [] Abandonment Spirituality of Patient [] Person of Heavenly [] Attends Religion of their Heavenly [] Believes in Prayer [] Reads Bible or Judaism materials [] There are Spiritual issues to be addressed Calculus Teacher Interventions [x] Prayer [] Active listening [] Non-anxious presence [] Spiritual/emotional support [] Crisis/trauma care [] Spiritual counseling [] Bereavement support [] Provided bereavement packet [] Provided Bible/devotional materials [] Provided toy/stuffed animal, coloring book to patient or family member [] Provided Communion [] Anointing/[place] [] Salvation [x] Completed spiritual assessment [] Other: Impact on Illness or Injury [] Angry [] Fearful [] Anxious [] Often cries [] Exhaustion [] Unable to work [] Unable to attend pentecostalism [] Unable to walk/stand [] Unable to read [] Unable to drive [] Unable to eat/drink [] Unable to sleep [] Unable to be with family [] Patient intubated [] Other: Summary Patient much stronger than Saturday. Surgery went well. Patient setting up in chair, cold asked for additional blanket for feet. Time spent with patient 15 min
[2019-12-30 11:02] LABS: Glucose Point of Care 250 mg/dL (70-110)
--- NOTE | 2019-12-30 13:02 | P.PN_ITS ---
Subjective Subjective: Interval history: Patient with numerous complaints today. She did not want to work with physical therapy until she had a pain pill and then she went to sleep and would not worked with them. She says that she has not been turned in 4 hours but per the staff, it was an hour ago. She actually initially told me she is been in the same position since yesterday though I pointed out that she was not in that position when I saw her yesterday. She is complaining about not getting water though water is at the bedside and someone was giving her a sip right before I came in. She took off her dressings over various skin tears and refuses to let us replace them. She says she is allergic to them, though there is no warmth, swelling or erythema or other skin changes I assoc iate with adhesive allergy. She states that the only thing we can put on them is aloe vera gel. She has a skin tear and ecchymosis sustained from her fall with layer of skin exposed. It has been oozing. She has still not allowed replacement IV after pulling it out yesterday. She did allow blood draw this morning which surprises me. She had received Geodon last night per signout received from nighttime position and review of medication administration record. She tells me again that she has not spoken to Denver since she came into the hospital and that we have to get in touch with him. He is the patient's son. I have not been in the room when he is called but have been told by her nurse as well as her sisters that she has talked to him. I again talked with patient sisters Sujatha Mcpherson and Venus. Sujatha Mcpherson reports that she has DURABLE POWER OF VISUAL EFFECTS EDITOR for healthcare but that Denver is DURABLE POWER OF VISUAL EFFECTS EDITOR for everything else. I do not have copies of these papers. Sujatha Mcpherson and Venus indicate that patient has been like this for a while. They say that she generally wants to do what ever is the opposite of what others would like for her to do. They requested that we call her Green to see if she responds better to that. Now that patient is more awake, and will resume her home trazodone. They said that may help. I do not see a huge difference from yesterday to today beyond her being less lethargic. I think that is in part due to decrease in dosing of pain medications. Family reports that patient has been taking pain medicine more than prescribed at home as evidenced by recently filled bottle with only a few tablets in it. Patient does not have any formal diagnosis of dementia or depression or other psychiatric illness according to her sisters nor her. I spoke with Dr. Saab, patient's primary care provider, and try to get some background from him. He inherited her from a previous provider. She has been on narcotic pain medications, hydrocodone, for many years. She does not carry any chronic psychiatric or cognitive diagnoses. Over the last 6 to 12 months, he has noticed that she has been having increasing excuses for why it is challenging for her to manage her diabetes. She has not been as compliant with her care as she had been in the past. I asked about von Willebrand's disease, and he said he had no record of that in his records. I went back to talk to the patient after being called that she had gotten up out of the chair and tried to make it to the bed. The chair is very close to the bed. She did not fall, she was just leaning over the bed. She has a different demeanor than she did earlier when she was more confrontational with me. Now she is more tearful. I was able to have a bit more conversation with her than previously. She states that she recalls talking to me earlier but she swears that the time is a lot longer ago than it was. I pointed out to her that she had not been in the chair a long and she insists that she was in it much longer. I mentioned some of the aspects of the management of her diabetes in particular that Dr. Saab pointed out. She began to tell me about issues with her glucometer. She reports the contradictory information from what ever I get from PT OT, HOMICIDE SQUAD COMMANDING OFFICER's, nursing staff, etc. She mentions other doctors that have come into the room but she has not been seen by any others either. One example is physical therapy today. She states that the physical therapist told her that she was going to be good enough to go home tomorrow. Review of therapy notes indicates that therapy was challenging due to her confusion and wanting to try to get out of bed. She is almost borderline in her tendencies. I was able to confirm that she has type 2 diabetes mellitus. Medications: Reviewed: Yes (Received I believe 20 mg of Geodon last night by mouth) Vitals/I&O/Wt Last Vital Signs Temp 98.6 F 12/30/19 07:38 Pulse 86 12/30/19 11:41 Resp 18 12/30/19 07:38 BP 168/80 12/30/19 07:38 Pulse Ox 92 12/30/19 09:35 12/29/19 12/30/19 12/30/19 22:59 06:59 14:59 Intake Total 460 / 870 240 / 1110 Output Total 1125 / 1125 350 / 350 Balance 460 / 870 -885 / -15 -350 / -350 Physical Exam Const: OTHER: More awake today. Oriented to person, place, location and year. Knows that she broke her hip although a short time later asked me why her hip hurts. HENMT: OTHER: Mucous membranes are moist though her lips are dry at the periphery Eye: OTHER: Pupils are equally reactive Resp: OTHER: Clear to auscultation bilaterally Cardio: OTHER: Regular rate and rhythm GI: OTHER: Abdomen soft, nontender : OTHER: Ware noted Extremity: NARRATIVE EXTREMITY EXAM: Patient is on her right side today. Dressing over surgical incision sites remain intact with no increase in serous drainage from yesterday. I am able to see the more posterior portions of her hip and she does have some ecchymoses there. What is above the dressing line however looks unchanged from yesterday. She has some edema in the left leg and to a lesser degree the right leg. Neuro: OTHER: Able to move toes on both feet. Speech is clear and fairly constant while I am in the room though not pressured (in contrast to her saying that she cannot talk because her mouth is too dry), her face is symmetric. Psych: COMMON NORMALS: speech normal ATTITUDE: Yes agitated ACTIVITY/MOTOR BEHAVIOR: Yes restless SPEECH: Yes normal speech, Yes excessive, Yes loud and No Pressured speech present MOOD & AFFECT: Yes irritable THOUGHT PROCESS: disorganized, Confabulating thought process present and Perseverating thought process present THOUGHT CONTENT: Yes delusions and Yes Obsession(s) present MEMORY/COGNITION: Yes memory grossly impaired INSIGHT: Limited insight present (Psych) JUDGEMENT: Limited judgement present (Psych) Skin: NARRATIVE SKIN EXAM: Dressing is off of the wound to the left forearm. It is not currently showing any bright red blood. Superficial layers of skin are gone. She has some surrounding bruising but no erythema, swelling. There is some serous drainage, minimal. There is another area on her more proximal arm where she took off the dressing and some of the skin came off in the square shape of that dressing. The extensive bruising to both arms is actually less acute appearing today. No new areas of bruising noted Urinary Catheter Management^: Ware: Cath Placed During This Visit: yes Reason for Continuing Indwelling Catheter: Required Immobilization for Trauma or Surgery or Anesthesia Urinary Catheter Date of Insertion: 12/28/19 Urinary Catheter Time of Insertion: 03:49 Data : 12/30/19 01:40 12/30/19 01:40 A&P Assessment and plan (1) Altered mental status: I am starting to suspect that there is a chronic component to this of some degree plus potentially the added impact of recent anesthesia, pain medication, and disorientation that can be associated with hip fracture in hospitalized patients. Patient was initially to sedate due to the amount of pain she was complaining of a medication received. She is more alert with changes made yesterday. What I am struggling to figure out is is patient just cantankerous and contrary by nature, which the family does describe, or does she have some degree of chronic cognitive versus psychiatric impairment which is been exacerbated by the current situation. I do not generally see much improvement after Geodon received last night beyond her being more awake which could be accounted for by decrease in pain medicine. She really has some borderline tendencies showing. Status: Acute Qualifiers: Altered mental status type: disorientation Qualified Code(s): R41.0 - Disorientation, unspecified (2) Acute blood loss anemia: Has received 1 unit of blood, H&H appears stable Status: Acute (3) Fall at home: Accidental/mechanical Status: Acute Qualifiers: Encounter type: initial encounter Qualified Code(s): W19.XXXA - Unspecified fall, initial encounter; Y92.009 - Unspecified place in unspecified non-institutional (private) residence as the place of occurrence of the external cause (4) Intertrochanteric fracture of left hip: Postop day 1 Status: Acute Qualifiers: Encounter type: initial encounter Fracture type: closed Fracture alignment: nondisplaced Qualified Code(s): S72.145A - Nondisplaced intertrochanteric fracture of left femur, initial encounter for closed fracture (5) Von Willebrands disease: Reviewed with the patient, she does report requiring treatment prior to surgery with von Willebrand factor one previous time when she lived in [place] and 2005 if she recalls correctly. She does not know what type of von Willebrand's that she has. Received 60 mg/kg of Humate-P prior to surgery Patient's family reports that nobody else in their family has von Willebrand's disease and she does not have issues with excessive bleeding from most injuries, usually of minor degree, sustained at home. PCP tells me that they were unaware of that diagnosis and do not have it listed. Status: Chronic (6) Chronic kidney disease (CKD), stage IV (severe): Likely secondary to diabetic nephropathy Stable renal function presently Status: Chronic (7) Hypertension: On amlodipine chronically as well as losartan Status: Chronic Qualifiers: Hypertension type: renovascular hypertension Qualified Code(s): I15.0 - Renovascular hypertension (8) Diabetes: Type currently unknown. Patient was diagnosed as a teenager by report. Years ago she was only on oral medicines. I have not been able to clarify with her due to mental status issues if she is on insulin now. Today she is not really wanting to share more specific information with me. I am suspecting this is type 2 diabetes based on limited information I have been able to confirm. Status: Chronic Qualifiers: Diabetes mellitus type: type 2 Diabetes mellitus tank terminal gauger insulin use: with skilled nursing use Diabetes mellitus complication status: with kidney complications Diabetes mellitus complication detail: with chronic kidney disease Chronic kidney disease stage: stage 4 (severe) Qualified Code(s): E11.22 - Type 2 diabetes mellitus with diabetic chronic kidney disease; N18.4 - Chronic kidney disease, stage 4 (severe); Z79.4 - terminal operations manager (current) use of insulin (9) Dyslipidemia: On statin chronically Status: Chronic Additional A&P Information Resume patient's home trazodone Will see if calling her Green helps mental status > it actually might thus far As per recommendation, will try ativan Check b12, folate, TSH We will recheck labs otherwise if clinically indicated Discontinue Ware catheter Stop IV fluids and other IV medications that she is refusing to allow resumption of the IV and has not had them since yesterday when that came out Continue neurochecks but changed to every shift to improve opportunities to sleep Continue current pain control which is similar to what she was getting at home though ordered more frequently Sliding scale insulin as needed. We will add some low-dose Lantus at bedtime which she reports taking SCDs for DVT prophylaxis PT and OT following Full code Will need skilled facility at [place] Attestations Medical Necessity Statement*: Requires ongoing inpatient stay for continued care post hip fracture repair until we are able to arrange appropriate disposition Time Spent in Patient Care: (>than 50% of time spent in counselling and/or direct pt care on unit) . I have spent approximately 2 hours today talking w ith the patient, multiple staff, reviewing records, PCP and psychiatry as well as case management in addition to documentation shown here. Coding Level of Care Code Acute Non Garment Sewing Machine Operator for Camilla Solis Diagnoses Altered mental status R41.0 Altered mental status type: disorientation Acute blood loss anemia D62 Fall at home W19.XXXA; Y92.009 Encounter type: initial encounter Intertrochanteric fracture of left hip S72.145A Encounter type: initial encounter Fracture type: closed Fracture alignment: nondisplaced Von Willebrands disease D68.0 Chronic kidney disease (CKD), stage IV (severe) N18.4 Hypertension I15.0 Hypertension type: renovascular hypertension Diabetes E11.22; N18.4; Z79.4 Diabetes mellitus type: type 2 Diabetes mellitus skilled nursing insulin use: with skilled nursing use Diabetes mellitus complication status: with kidney complications Diabetes mellitus complication detail: with chronic kidney disease Chronic kidney disease stage: stage 4 (severe) Dyslipidemia E78.5
--- NOTE | 2019-12-30 13:32 | PC.NURSE ---
foleu dc hernandez with ns 10ml pulled from balloon pt tolerated it well.
[2019-12-30] MEDS: LORazepam 0.5 mg Tablet PO (15:59)
[2019-12-30 17:06] LABS: Glucose Point of Care 118 mg/dL (70-110)
[2019-12-30 21:25] LABS: Glucose Point of Care 163 mg/dL (70-110)
[2019-12-30] MEDS: insulin glargine 100 units/1 mL 5 UNIT SUBCUT (21:26)
[2019-12-30] MEDS: trazodone 150 mg Tablet PO (21:28)
[2019-12-30 22:18] LABS: Thyroid Stimulating Hormone 2.97 uIU/mL (0.27-4.20); Vitamin B12 343 pg/mL (232-1245)
[2019-12-30 22:21] LABS: Folate Level 6.9 ng/mL (4.8-37.3)
[2019-12-31 03:00] VITALS: BP 136/56; PULSE 99; RESP 20; TEMP 36.9; O2SAT 95
[2019-12-31 06:39] LABS: Glucose Point of Care 145 mg/dL (70-110)
[2019-12-31 07:00] VITALS: BP 152/80; PULSE 91; RESP 15; TEMP 37.8; O2SAT 95
[2019-12-31] MEDS: amlodipine 5 mg Tablet PO (08:04)
[2019-12-31] MEDS: atorvastatin 40 mg Tablet 80 MG PO (08:04)
[2019-12-31] MEDS: sennosides-docusate Tablet 1 TAB PO (08:04)
[2019-12-31 09:02] VITALS: PULSE 99; O2SAT 95
[2019-12-31 11:00] VITALS: BP 154/51; PULSE 99; RESP 16; TEMP 37.3; O2SAT 95
[2019-12-31 11:04] LABS: Glucose Point of Care 165 mg/dL (70-110)
[2019-12-31] MEDS: HYDROcodone-acetaminophen 5-325 mg Tablet PO (11:35)
[2019-12-31] MEDS: famotidine 20 mg Tablet PO (11:39)
--- NOTE | 2019-12-31 13:25 | PM.PN ---
Subjective Subjective: Interval history: Patient is much more agreeable today. She still seems to like sharing stories that attract sympathy or admiration for her. She told me today that her sister that a couple of years ago also had von Willebrand's. She says that her father and an uncle and another family member had hemophilia B. I actually cared for the sister she is talking about who and she did not have von Willebrand's to the best of my recollection though she did have a lot of other medical problems. Patient's other 2 sisters say that neither parent had any bleeding problems nor did anybody else in the extended family. She tells me that she lost consciousness for 2 hours after a fall a week or so prior to this admission. States that she woke up and was able to get herself back into bed. She describes being in a coma for 3 weeks at the age of 17 when she was diagnosed with diabetes and that her mother short time later also developed a diabetic coma. I do not really have a way to confirm or deny any of this. She is much more agreeable, less contrary and argumentative after receiving 1 dose of Ativan yesterday. At the time I am seeing her she is sitting up on the side of the bed and looks remarkably better. She states that she feels better 2. Still with pain in her hip but it is decreased significantly. Ate something for lunch although she is picky about what she will or will not eat as things upset her stomach. Vitals/I&O/Wt Last Vital Signs Temp 99.1 F 12/31/19 11:00 Pulse 99 12/31/19 11:00 Resp 16 12/31/19 11:00 BP 154/51 12/31/19 11:00 Pulse Ox 95 12/31/19 11:00 12/30/19 12/31/19 12/31/19 22:59 06:59 14:59 Intake Total 0 / 30 120 / 150 360 / 360 Output Total 500 / 1350 400 / 1750 500 / 500 Balance -500 / -1320 -280 / -1600 -140 / -140 Physical Exam Urinary Catheter Management^: Ware: Cath Placed During This Visit: yes, but has since been removed by the nurse Reason for Continuing Indwelling Catheter: Decision to DC Catheter Urinary Catheter Date of Insertion: 12/28/19 Urinary Catheter Time of Insertion: 03:49 Date Urinary Catheter Removed: 05/13/20 Time Urinary Catheter Discontinued: 13:32 Data : 12/30/19 01:40 12/30/19 01:40 Attestations Medical Necessity Statement*: Pt accepted at skilled facility while this note in progress. Please see DC summary of same date Coding Level of Care Code Acute Blanching Machine Operator for Camilla Solis
[2019-12-31 15:00] VITALS: BP 175/70; PULSE 95; RESP 16; TEMP 36.9; O2SAT 98
--- NOTE | 2019-12-31 15:07 | PM.PSYCN ---
Providers/Reason for Consult Consulting Physican/Specialty*: Psychiatry Reason for Consult*: Decisional capacity Attending Physician: Nannette Marroquin MD Primary Care Provider: Hardy Saab, DO Psych Consult HPI History of Present Illness Corie Tomas is a 79 year old female carries history of von Willebrand's disease, chronic kidney disease stage IV, insulin-dependent diabetes came in after sustaining a fall. Patient is stating that she lives alone, she manages her daily activities on her own, on December 13 she suffered from ankle sprain after tripping from her walker and stayed on the floor for 2 hours, experienced some bruising of left side of her chest, today she lost her balance and fell on the floor, she was not able to bear weight on left side, she called EMS who brought her here for further evaluation. Patient is not endorsing chest pain, palpitations, loss of consciousness, dysuria or seizures. She is not on aspirin or any anticoagulation. Diagnostic in the ER revealed normal hemodynamics, left-sided intertrochanteric fracture. She denies previous history of ME, CHF, coronary disease or stroke. On interview, the patient is unclear why she would need to see a psychiatrist. She has never seen a psychiatrist before. However she freely discussed her current medical and a psychosocial situation. Historically, she is half . She grew up being raised primarily by her mother and her older sister. She related the story is growing up as a child which appeared to be a source of emotional distress for her. However she denied any history of physical or sexual abuse herself. She graduated from high school and very soon after got . She was for 41 years. Her of a massive coronary failure on their 41st wedding anniversary. Since then she has lived alone. She enjoys living alone. However she has decided that she can no longer live in her current domicile and is willing to move her to a more restrictive though supportive setting. She will miss her friends but looks forward to making more. She is very strongly bound to her Syn[employer]. She told the story of being raised as a Protestant but having a spiritual experience upon entering the jain that told her that this was the jain that she should remain at. She finds it supportive and has very many friends there. When asked why she was in the hospital, she told a very detailed history of how she fell and what she describes as blacking out . It is consistent with the descriptions in her chart. She gave a quite vivid and anatomically accurate description of the injuries that she has sustained, her expected recovery, and long-term sequelae. She spoke of some family discord and is concerned that she has a son who lives in [place] who is going to come up and cause trouble. She feels that it is best to let things be and not cause ill well given the family situation. We did not discuss in depth the family situation. She displayed no deficits in memory and immediate, intermediate, or remote spheres. Her procedural memory was quite good and that she told an excellent explanation of how she would make a pork casserole that her quite liked and told it with gusto and enjoyment. Frontal lobe and executive function were not tested at this time. Meds Current Medications: Current Medications Generic Name Dose Route Start Last Admin Trade Name Freq PRN Reason Stop Dose Admin Acetaminophen 650 mg 12/28/19 05:29 12/29/19 20:21 Tylenol PO 650 mg Q6H PRN Administration Mild pain Hydrocodone Bitart /Acetaminophen 1 - 2 tab 12/28/19 19:57 12/31/19 11:35 [place] 5-325 Mg PO 2 tab Q4H PRN Administration BREAKTHROUGH PAIN Amlodipine Besylat e 5 mg 12/29/19 09:00 12/31/19 08:04 Norvasc PO 5 mg DAILY HELENA Administration Atorvastatin Calci um 80 mg 12/29/19 09:00 12/31/19 08:04 Lipitor PO 80 mg DAILY HELENA Administration Famotidine 20 mg 12/29/19 09:00 12/31/19 11:39 Pepcid Tab PO 20 mg BID HELENA Administration Insulin Aspart 0 unit 12/28/19 21:00 12/30/19 21:26 Novolog SUBCUT 1 unit BEDTIME HELENA Administration Protocol Insulin Aspart 0 unit 12/29/19 08:00 12/31/19 11:40 Novolog SUBCUT 2 unit TIDWM HELENA Administration Protocol Insulin Glargine 5 unit 12/29/19 21:00 12/30/19 21:26 Lantus SUBCUT 5 unit BEDTIME HELENA Administration Lorazepam 0.5 mg 12/30/19 14:42 12/30/19 15:59 Ativan PO 0.5 mg BID PRN Administration ANXIETY Senna/Docusate Sod ium 1 tab 12/28/19 09:00 12/31/19 08:04 Senna-S PO 1 tab BID HELENA Administration Trazodone HCl 150 mg 12/30/19 21:00 12/30/19 21:28 Desyrel PO 150 mg BEDTIME HELENA Administration PFSH NPU PFSH: Medical History (Updated 12/30/19 @ 14:57 by Nannette Marroquin MD) Bifascicular block Chronic kidney disease (CKD), stage IV (severe) Degenerative joint disease Diabetes Dyslipidemia GERD (gastroesophageal reflux disease) Hypertension Von Willebrands disease Pt reported, PCP not not have diagnosis in her records Surgical History (Updated 12/29/19 @ 07:55 by Jorge Austin MD) H/O cardiac catheterization 2009, normal EF nonsignificant irregular coronary artery disease Hx of cholecystectomy S/P cataract surgery Family History (Updated 12/28/19 @ 03:20 by Grabiel Fraga MD) Denies family history of CAD (coronary artery disease) Clotting disorder Chronic kidney disease (CKD) Social History (Updated 12/28/19 @ 03:20 by Grabiel Fraga MD) Smoking and tobacco status: never smoked Alcohol intake: never Lives independently: Yes Additional social history: Her sister has power of civil rights attorney named Sujatha Other Psychiatric History: Other Psychiatric History: She has no prior history of psychiatric care. She has never seen a psychiatrist before. She has never been treated for mental health problem. She has never been in therapy. Mental Status Exam MSE Comments: Mental Status Exam: The patient is encountered lying in bed. She is alert and awake. She is in no apparent physical or emotional distress. She orients appropriately to environmental stimuli. There is no attention to internal stimuli. Eye contact is good. She is believed to be a reliable informant as information provided is internally consistent and consistent with that in the chart. Appearance: hygiene is good; no gross neurological deficits., gait is not observed; AIMS=0 Speech: Speech is of normal rate and rhythm and easily understood. Vocabulary is appropriate for age and stated level of education. She speaks in complete sentences Thought processes: Thought processes are abstract. Judgment is adequate for safety. Answers to questions are pertinent and complete. Associations: intact Psychotic processes: There is no indication of guarding or paranoia. There is no attention to the internal stimuli. Auditory and visual hallucinations are denied. Judgment: Insight is good. Problem solving skills are adequate for safety. Orientation: The patient is oriented to person, place time and situation. Memory: no deficits noted in immediate, intermediate, or remote spheres. Attention: The patient is alert and interpersonally engaged. Language: Verbalizations are coherent. Fund of knowledge: Fund of knowledge is adequate. Affect/Mood: Affect is consistent with a euthymic mood. denied suicidal ideation Affective range is appropriate. Psychosis: perception unimpaired except through cognitive distortion; reality testing intact. Vitals/I&O/Wt Last Vital Signs Temp 99.1 F 12/31/19 11:00 Pulse 99 12/31/19 11:00 Resp 16 12/31/19 11:00 BP 154/51 12/31/19 11:00 Pulse Ox 95 12/31/19 11:00 12/31/19 12/31/19 12/31/19 06:59 14:59 22:59 Intake Total 120 / 150 360 / 360 Output Total 400 / 1750 500 / 500 Balance -280 / -1600 -140 / -140 Physical Exam Urinary Catheter Management^: Ware: Cath Placed During This Visit: yes, but has since been removed by the nurse Reason for Continuing Indwelling Catheter: Decision to DC Catheter Urinary Catheter Date of Insertion: 12/28/19 Urinary Catheter Time of Insertion: 03:49 Date Urinary Catheter Removed: 12/30/19 Time Urinary Catheter Discontinued: 13:32 A&P Additional A&P Information Assessment:Corie Tomas is a 79-year-old woman who is displaying a good cognitive capacity with no notable deficit deficits on superficial individual interview. Not formally tested for dementia. There is no indication at that she does not have decisional capacity at this time. However it is noted that at some point she developed a state where she blacked out . This assessment would not rule out the likelihood that her mental status may vary over time pending her medical status and response to medications. It is noted that she is taking hydrocodone which would most certainly affect problem solving and perception. A more in-depth assessment with neuropsychological testing would be more revealing. However it is not expected to find results that would significantly change the overall assessment above. Attestations NPU Medical Necessity Statement*: Patient will remain in the hospital until of the physician of record decides otherwise. Coding Level of Care Code Acute Leathersmith for Camilla Solis
--- NOTE | 2019-12-31 16:28 | P.DS_ITS ---
Discharge Providers Date of Admission: 12/28/19 03:32 Date of Discharge: December 31, 2019 Attending Provider at Admission: Grabiel Fraga MD Attending Provider at Discharge: Nannette Marroquin MD Primary Care Provider: Hardy Saab DO Diagnoses at Discharge Discharge Diagnosis (1) Fall at home: Status: Acute Qualifiers: Encounter type: initial encounter Qualified Code(s): W19.XXXA - Unspecified fall, initial encounter; Y92.009 - Unspecified place in unspecified non-institutional (private) residence as the place of occurrence of the external cause (2) Intertrochanteric fracture of left hip: Status: Acute Qualifiers: Encounter type: initial encounter Fracture type: closed Fracture alignment: nondisplaced Qualified Code(s): S72.145A - Nondisplaced intertrochanteric fracture of left femur, initial encounter for closed fracture (3) Status post open reduction and internal fixation (ORIF) of fracture: Status: Acute Problem details: left hip, 12/2019, Dr Austin (4) Altered mental status: Status: Resolved Qualifiers: Altered mental status type: disorientation Qualified Code(s): R41.0 - Disorientation, unspecified (5) Acute blood loss anemia: Status: Acute (6) Chronic kidney disease (CKD), stage IV (severe): Status: Chronic (7) Von Willebrands disease: Status: Chronic Problem details: Pt reported, PCP not not have diagnosis in her records (8) Hypertension: Status: Chronic Qualifiers: Hypertension type: renovascular hypertension Qualified Code(s): I15.0 - Renovascular hypertension (9) Diabetes: Status: Chronic Qualifiers: Diabetes mellitus type: type 2 Diabetes mellitus senior living insulin use: with senior living use Diabetes mellitus complication status: with kidney complications Diabetes mellitus complication detail: with chronic kidney disease Chronic kidney disease stage: stage 4 (severe) Qualified Code(s): E 11.22 - Type 2 diabetes mellitus with diabetic chronic kidney disease; N18.4 - Chronic kidney disease, stage 4 (severe); Z79.4 - group home (current) use of insulin (10) Dyslipidemia: Status: Chronic Reason for Visit Reason for Visit: Reason For Visit: HIP PAIN POST FALL Hospital Course Hospital Course: Patient is a 79-year-old female who presented to the hospital after a fall at home. She was found to have a left intratrochanteric hip fracture. She had multiple bruises. She reported a history of von Willebrand's disease. PT and PTT were okay but she did have drop in hemoglobin. Case was discussed with hematology. We do not have any definitive records of this. Decision was made to go on and treat her with Humate-P prior to surgical intervention. Dr. Austin was consulted from orthopedics and did an open reduction and internal fixation with gamma nail of the left hip. Both before and after surgery, patient's pain was difficult to control. She was either complaining of pain or sedated. She is chronically on hydrocodone and has been for many years. She gets a regular prescription from her primary care provider for about 90 tablets a month. At one point she was getting 2 mg of Dilaudid IV here. Postoperatively she was quite sedate and pain medication was adjusted. She was very contrary and argumentative and at times yelling and screaming at staff. Some of the things that she was talking about were not making sense and she did not seem to recall at times my being in the room. I spoke with her family, her sisters with whom I could get in touch, and they reported that some of what she was sharing was not accurate information. I have no definitive way to confirm or deny as it was somewhat of a she said-she said-he said situation. Geodon was tried which provided only temporary improvement primarily in the form of transient sedation. After more fully awakening from the Geodon she was even more disagreeable. Case was discussed with psychiatry who recommended some Ativan. She received 0.5 mg with market improvement followed the next day by return to her more normal self. I did ask psychiatry to see her to be sure that she did not have any clear signs of obvious cognitive or psychiatric acute etiology. I conferred with her primary care provider who denied any diagnosis of such. Patient has been less compliant with some of her medication regimen and follow-up over the past 6 months or so but they had otherwise not noted anything. Of note patient's primary care provider did not have in their records any diagnosis of von Willebrand's disease. Initially patient did not really participate in postoperative physical therapy but she did start to participate a bit more. With drastic improvement in stable laboratory studies as well as vital signs, she was felt stable for disposition to skilled facility. Arrangements were made with [facility] where she will be transferred for continued care. Attempts to reach her son Denver on the day of discharge were not successful. I did go on to notify Miguel. Patient herself was also agreeable. Assessment by psychiatry is as follows: Corie Tomas is a 79-year-old woman who is displaying a good cognitive capacity with no notable deficit deficits on superficial individual interview. Not formally tested for dementia. There is no indication at that she does not have decisional capacity at this time. However it is noted that at some point she developed a state where she blacked out . This assessment would not rule out the likelihood that her mental status may vary over time pending her medical status and response to medications. It is noted that she is taking hydrocodone which would most certainly affect problem solving and perception. A more in- depth assessment with neuropsychological testing would be more revealing. However it is not expected to find results that would significantly change the overall assessment above. I would concur with recommendation for in-depth neuropsychological testing at some point in the future. I have personally cared for 1 of her sisters and know that person's medical history as it pertains to hospitalizations here. Some of the medical problem developed they mentions her sister having were not true in my experience. There were multiple times during the hospitalization that it appeared she was confounding partially true stories to make them seem more sad or more shocking than they really were. She not infrequently reported that somebody did not do something that they had done and vice versa. She insisted that the only place that she could have an IV placed was in her foot but given her history of diabetes that would not be an optimal location. At times she seemed to want to be the center of attention. She mentions seeing multiple relatives a couple of times to me and continues to do that today stating that she thought it was her day to after she fell. It is possible that all of this was secondary to medications administered both at home and here but is also within the realm of differential diagnosis that she was withdrawing from something that she normally gets. Some of her tendencies are somewhat borderline. Cannot rule out cognitive dysfunction but again does not have a current diagnosis. The drastic change from prior to receiving a small dose of Ativan to afterwards was remarkable. On the day of discharge she is alert and oriented to person place time and for the most part situation. There are some details that she gets wrong but most of these are from the time just prior to admission after she had fallen and when she was agitated here. She is cooperative. She is participating in therapy by sitting up in the bed. She is utilizing her call light rather than yelling out. Physical Exam Const: OTHER: Looks like a completely different person today Eye: OTHER: Pupils are equally reactive Resp: OTHER: Clear to auscultation bilaterally Cardio: OTHER: Regular rate and rhythm GI: OTHER: Abdomen soft, nontender : OTHER: No Ware catheter Extremity: NARRATIVE EXTREMITY EXAM: Decrease pain, dressing over 1 incision site is intact while the more distal one has come off. Pennie are intact and looks to be healing well. Bruising in this region extends primarily posteriorly and is starting to fade. Neuro: OTHER: Speech clear, face symmetric, no tremor, moves all extremities Psych: COMMON NORMALS: speech normal ATTITUDE: Yes agitated ACTIVITY/MOTOR BEHAVIOR: Yes restless SPEECH: Yes normal speech, Yes excessive, Yes loud and No Pressured speech present MOOD & AFFECT: Yes irritable THOUGHT PROCESS: disorganized, Confabulating thought process present and Perseverating thought process present THOUGHT CONTENT: Yes delusions and Yes Obsession(s) present MEMORY/COGNITION: Yes memory grossly impaired INSIGHT: Limited insight present (Psych) JUDGEMENT: Limited judgement present (Psych) Skin: NARRATIVE SKIN EXAM: Extensive bruising to both forearms as well as the left upper chest. Patient has several skin tears to the left forearm that are healing. Several other bruises are unchanged. Urinary Catheter Management^: Ware: Cath Placed During This Visit: yes, but has since been removed by the nurse Reason for Continuing Indwelling Catheter: Decision to DC Catheter Urinary Catheter Date of Insertion: 12/28/19 Urinary Catheter Time of Insertion: 03:49 Date Urinary Catheter Removed: 12/30/19 Time Urinary Catheter Discontinued: 13:32 Discharge Data Data Completed and Pending: Completed Studies During Hospitalization Category Date Time Status XR chest 1V sukhwinder ble [id number] Stat Exams 12/28/19 02:23 Completed XR hip LT 2-3V wo /w pel* [id number] Rout ine Exams 12/28/19 Completed XR hip LT 2-3V wo /w pel* [id number] Stat Exams 12/28/19 01:50 Completed CV echo complete* [id number] Routine Ultrasound 12/28/19 05:29 Completed Labs from last 24 hours 12/31/19 12/31/19 12/30/19 11:01 06:31 21:22 POC Glucose 165 145 163 Vitamin B12 Folate [facility] 12/30/19 12/30/19 12/30/19 16:59 01:40 01:40 POC Glucose 118 Vitamin B12 343 Folate 6.9 TSH 2.97 Addt'l Data from Hospital Stay: Laboratory Tests 12/28/19 12/28/19 12/29/19 05:05 14:50 04:08 Hgb 9.8 L 9.0 L 7.8 L Sodium Potassium Chloride Carbon Dioxide Anion Gap BUN Creatinine Glucose POC Glucose Calculated Osmolal ity Calcium Magnesium Vitamin B12 Folate [facility] 12/30/19 12/30/19 12/30/19 01:40 01:40 01:40 Hgb 9.8 L Sodium 135 L Potassium 4.1 Chloride 106 Carbon Dioxide 21 L Anion Gap 12.1 BUN 12 Creatinine 1.9 H Glucose 133 H POC Glucose Calculated Osmolal ity 278 L Calcium 8.8 Magnesium 2.2 Vitamin B12 343 Folate 6.9 TSH 2.97 12/30/19 21:22 Hgb Sodium Potassium Chloride Carbon Dioxide Anion Gap BUN Creatinine Glucose POC Glucose 163 Calculated Osmolal ity Calcium Magnesium Vitamin B12 Folate TSH Vitals: Last Vital Signs Temp 98.5 F 12/31/19 15:00 Pulse 95 12/31/19 15:00 Resp 16 12/31/19 15:00 BP 175/70 12/31/19 15:00 Pulse Ox 98 12/31/19 15:00 Discharge Plan Discharge Patient Disposition: Xfer SNF Condition: Stable Prescriptions: New acetaminophen 325 mg Tablet 650 mg PO Q6H PRN (Reason: Mild pain) Qty: 120 RF: 0 hydrocodone-acetaminophen 5-325 mg Tablet 1 - 2 tab PO Q4H PRN (Reason: Breakthrough Pain) Qty: 30 RF: 0 famotidine 20 mg Tablet 20 mg PO BID Qty: 30 RF: 0 Novolog U-100 Insulin aspart 100 unit/mL Solution See Rx Instructions .ROUTE .COMPLEX Qty: 10 RF: 0 Lantus U-100 Insulin 100 unit/mL Solution 8 unit SUBCUT BEDTIME Qty: 10 RF: 0 sennosides-docusate sodium 8.6-50 mg Tablet 1 tab PO BID Qty: 60 RF: 0 lorazepam 0.5 mg Tablet 0.5 mg PO BID PRN (Reason: Anxiety) Qty: 30 RF: 0 trazodone 150 mg Tablet 150 mg PO BEDTIME Qty: 30 RF: 0 Continued amlodipine 10 mg Tablet 10 mg PO DAILY RF: 0 losartan 25 mg Tablet 25 mg PO DAILY RF: 0 rosuvastatin 40 mg Tablet 40 mg PO DAILY Qty: 30 RF: 0 Discontinued hydrocodone-acetaminophen 5-325 mg Tablet 1 tab PO Q6H RF: 0 famotidine 20 mg Tablet 20 mg PO QID RF: 0 trazodone 300 mg Tablet 200 mg PO DAILY RF: 0 Discharge Orders: Discharge Order (Routine); Ordered 12/31/19 Ordered By: Nannette Marroquin Referrals: [facility] [Outside] Jorge Austin MD [Physician] - 2 weeks Hardy Saab DO [Primary Care Provider] - 2 weeks Discharge Diet: Usual diet Discharge Activity: As per PT/OT instructions Activity Restrictions/Additional Instructions: CBC 1 week Received 1 unit blood in hospital Was quite argumentative/contrary post op but much improved today after resumption of home meds and one time dose of ativan po. If she becomes agitated, call her Green and she responds to that name better Was evaluated by psychiatry in hospital and able to make her own decisions currently She does have a son Jose Raul with DPOA. Her sister Sujatha is a secondary contact if Jsoe Raul cannot be reached. PT/OT to follow Discharge Date/Time: 12/31/19 17:02 Discharge Attestations Time Spent in Discharge Care*: greater than 30 min Specific Discharge Activities: Specific discharge activities: educating patient, educating and/or supporting family/caregiver, discussing with pcp/other providers, discussing with case management director/social workers/dc planners, documenting/other paperwork and evaluating patient/reviewing data Status at Discharge: Cognitive status at discharge: other (Grossly cognition is intact today) , Behavioral status at discharge: cooperative , Functional status at discharge: other assisted ambulation Overall status at discharge: patient is not back to baseline Quality Metrics Clinical Quality Measures During this hospital stay, did patient experience: None Coding Level of Care Code Acute Integrated Program Teacher for Chg Fwd Diagnoses Fall at home W19.XXXA; Y92.009 Encounter type: initial encounter Intertrochanteric fracture of left hip S72.145A Encounter type: initial encounter Fracture type: closed Fracture alignment: nondisplaced Status post open reduction and internal fixation (ORIF) of fracture Z98.890; Z87.81 Altered mental status R41.0 Altered mental status type: disorientation Acute blood loss anemia D62 Chronic kidney disease (CKD), stage IV (severe) N18.4 Von Willebrands disease D68.0 Hypertension I15.0 Hypertension type: renovascular hypertension Diabetes E11.22; N18.4; Z79.4 Diabetes mellitus type: type 2 Diabetes mellitus senior living insulin use: with superintendent plant use Diabetes mellitus complication status: with kidney complications Diabetes mellitus complication detail: with chronic kidney disease Chronic kidney disease stage: stage 4 (severe) Dyslipidemia E78.5
--- NOTE | 2019-12-31 16:35 | PC.NURSE ---
Adult Psychiatrist tried calling pt son to let him know that pt is going to be discharged to [facility] today was unsuccessful and unable to leave a message.
[2019-12-31 16:58] VITALS: BP 175/70; PULSE 95; RESP 16; TEMP 36.9; O2SAT 98
== END 2019-12-31 17:02 | disposition skilled nursing facility (03) | DRG 481 ==
LOC: ER 03:48 → MEDSURG 04:19
PROVIDERS: Nurse Practitioner Family; Orthopaedic Surgery; Admitting Provider Internal Medicine; PCP Internal Medicine; Visit Provider Hospitalist
PROC: 0QS706Z Reposition Left Upper Femur with Intramedullary Internal Fixation Device, Open Approach (ICD-10-PCS; CPT 27245; principal; 2019-12-28 14:05)
DX: S72.142A Displaced intertrochanteric fracture of left femur, initial encounter for closed fracture (principal); D68.0 Von Willebrand disease; N18.4 Chronic kidney disease, stage 4 (severe); I45.2 Bifascicular block; D62 Acute posthemorrhagic anemia; W18.30XA Fall on same level, unspecified, initial encounter; E11.22 Type 2 diabetes mellitus with diabetic chronic kidney disease; I12.9 Hypertensive chronic kidney disease with stage 1 through stage 4 chronic kidney disease, or unspecified chronic kidney disease; Z79.4 Long term (current) use of insulin; M19.90 Unspecified osteoarthritis, unspecified site; E78.5 Hyperlipidemia, unspecified; K21.9 Gastro-esophageal reflux disease without esophagitis; F41.0 Panic disorder [episodic paroxysmal anxiety]; R41.82 Altered mental status, unspecified
CPT/HCPCS: 12345; 36415; 36416; 36430; 51702; 71045; 73502; 76000; 80048; 80053; 81003; 82550; 82607; 82746; 82962; 83735; 84443; 85014; 85018; 85025; 85610; 85730; 86850; 86900; 86920; 93306; 94762; 96372; 96375; 97162; 97167; 97530; 97535; 99283; C1713; J0690; J1170; J1815; J2060; J2175; J2270; J3010; J7187; J7799; P9016; Q0162

== ENCOUNTER 2020-01-07 16:57 | Emergency (ER) | payer MEDICARE, MEDICAID, SELFPAY ==
[2020-01-07] VITALS (19 sets, daily range): BP systolic 119–144; BP diastolic 66–87; PULSE 89–93; RESP 18–20; O2SAT 92–99; BMI 24.5
--- NOTE | 2020-01-07 17:12 | ED_ITS ---
Documented by User: Jarrett Tom DO 01/12/20 14:33 HPI - Weakness General: Chief complaint: Weakness Stated complaint: WEAKNESS/ CHANGE IN MENTAL STATUS Time Seen by Provider: 01/07/20 17:00 History of Present Illness: HPI Narrative: 79-year-old female who is brought in from [place] she slid out of bed she is complaining of some nausea now they reported she had some altered mental status few weeks ago on Easter she fell and broke her hip she still has bandages on her left hip from where they did surgery. She stated 2 days ago she began to get nauseous she denies diarrhea chest pain says she gets somewhat short of breath with anxiety. She denies any other problems other than stating she has to have a bowel movement right now. She has a known history of some underlying dementia. MD Complaint: generalized weakness Associated symptoms: Reports confusion (Chronic), easy bruising and short of breath; Denies chest pain, melena, decreased appetite, diaphoresis, dysuria, fever(s), headache(s), myalgias, nausea, rash, vomiting or other Review of Systems Narrative: Questionable reliability on her review of systems due to the dementia Const: Denies: fever(s) or diaphoresis ENMT: Denies: throat pain, ear or mastoid pain, nasal discharge or nasal congestion Card: Denies: chest pain Resp: Reports: dyspnea; Denies: productive cough or non-productive cough GI: Denies: nausea, vomiting or melena : Denies: dysuria Skin/Breast: Denies: rash or pruritus Neuro: Reports: confusion (Chronic); Denies: headache(s) Fede/Lymph: Reports: easy bruising PFSH ED PFSH: Medical History Bifascicular block Chronic kidney disease (CKD), stage IV (severe) Degenerative joint disease Diabetes Dyslipidemia GERD (gastroesophageal reflux disease) Hypertension Von Willebrands disease Pt reported, PCP not not have diagnosis in her records Surgical History H/O cardiac catheterization 2009, normal EF nonsignificant irregular coronary artery disease Hx of cholecystectomy S/P cataract surgery Status post open reduction and internal fixation (ORIF) of fracture left hip, 12/2019, Dr Austin Family History Denies family history of CAD (coronary artery disease) Clotting disorder Chronic kidney disease (CKD) Social History Smoking and tobacco status: never smoked Alcohol intake: never Lives independently: Yes Additional social history: Her sister has power of mail order biller named Sujatha Physical Exam Const: COMMON NORMALS: no acute distress GENERAL APPEARANCE: cooperative and comfortable ORIENTATION/CONSCIOUSNESS: Yes awake HENMT: COMMON NORMALS: normocephalic, atraumatic, external ears normal and EAC's normal HEAD & SCALP: normocephalic and atraumatic EXTERNAL EAR: Yes external ears normal EXTERNAL AUDITORY CANAL: EAC's normal Eye: COMMON NORMALS: Equal, round and reactive pupils present, EOMs intact bilaterally, conjunctivae normal and no scleral icterus CONJUNCTIVA: Yes conjunctivae normal PUPIL: Yes Equal, round and reactive pupils present Neck/C-Spine: COMMON NORMALS: full ROM, no lymphadenopathy, supple and no JVD Lymph: LYMPHATIC: no lymphadenopathy noted and no lymphedema noted Resp: COMMON NORMALS: normal respiratory effort, No retractions, No use of accessory muscles and clear to auscultation bilaterally AUSCULTATION: clear to auscultation bilaterally Cardio: COMMON NORMALS: no JVD, regular rate, regular rhythm and No murmurs present (Cardio) RATE: regular rate RHYTHM: regular rhythm GI: COMMON NORMALS: Soft to palpation and No hepatosplenomegaly present AUSCULTATION: Yes normoactive bowel sounds PALPATION: Yes Soft to palpation, No Tenderness to palpation present (GI), No Guarding due to palpation present (GI) and Yes No hepatosplenomegaly present Extremity: COMMON NORMALS: normal to inspection, capillary refill normal, no clubbing, cyanosis or edema, no calf tenderness and no pedal edema NARRATIVE EXTREMITY EXAM: Large amount of bruising on the left hip and thigh. Bandage in place laterally over the greater trochanter just inferior from recent hip surgery. Neuro: OTHER: Mildly confused will answer questions but not always appropriate not completely oriented to time place or person. No focal neurologic deficits are noted Skin: COMMON NORMALS: no rashes or lesions noted GENERAL SKIN EXAM: no rashes or lesions noted Course Vital Signs: Vital signs: Vital Signs Pulse Rate 93 01/07/20 22:31 Respiratory Rate 18 01/07/20 22:31 Blood Pressure 120/66 01/07/20 22:31 Pulse Oximetry 95 01/07/20 22:31 MDM - Weakness MDM Narrative: Medical decision making narrative: Care transferred to Dr. Hays at change of shift. Please see his notes for further course of care, course of care and disposition.. Lab Data: Labs: Lab Results 01/07/20 01/07/20 01/07/20 Range/Units 16:43 16:43 18:40 WBC 8.4 (4.0-10.0) 10^3/ uL RBC 2.95 L (4.1-5.3) 10^6/u L Hgb 9.4 L (11.5-15.3) g/dL Hct 29.3 L (37.0-47.0) % MCV 99.3 H (81-99) fL MCH 31.9 (28.0-34.0) pg MCHC 32.1 (30.0-36.0) g/dL RDW 15.6 H (12.1-15.1) % Plt Count 362 (130-400) 10^3/c mm MPV 9.2 (7.4-10.4) fL Neut % (Auto) 72.2 % Lymph % (Auto) 17.7 % Powell % (Auto) 9.1 % Eos % (Auto) 0.2 % Baso % (Auto) 0.4 % Neut # (Auto) 6.1 (1.8-7.7) 10^3/u L Lymph # (Auto) 1.5 (0.8-4.8) 10^3/u L Powell # (Auto) 0.8 (0.2-0.9) 10^3/u L Eos # (Auto) 0.0 (0.0-0.8) 10^3/u L Baso # (Auto) 0.0 (0.0-0.1) 10^3/u L Nucleated RBC % (a uto) 0 % Nucleated RBCs # 0.0 /100WBC Sodium 133 L (136-145) mmol/L Potassium 4.1 (3.5-5.1) mmol/L Chloride 99 (98-107) mmol/L Carbon Dioxide 18 L (22-29) mmol/L Anion Gap 20.1 H (5-19) BUN 21 (8-23) mg/dL Creatinine 2.5 H (0.5-0.9) mg/dL Glucose 141 H (65-115) mg/dL Calculated Osmolal ity 275 L (285-295) mOsm/k g Calcium 8.1 L (8.5-10.5) mg/dL Total Bilirubin 1.3 H (0.15-1.2) mg/dL AST 53 H (0-32) U/L ALT 26 (0-33) U/L Alkaline Phosphata se 121 H (35-105) IU/L Total Protein 5.8 L (6.6-8.7) g/dL Albumin 3.2 L (3.5-5.2) g/dL Globulin 2.6 (1.3-4.6) g/dL Urine Color Yellow (Yellow) Urine Appearance Sl cloudy A (CLEAR) Urine pH 5 (5-7) Ur Specific Gravit y 1.005 (1.005-1.030) Urine Protein Neg (Negative) Urine Glucose (UA) Norm (Normal) Urine Ketones Negative (Negative) Urine Blood 3+ H (Negative) Urine Nitrate Negative (Negative) Urine Bilirubin Neg (NEGATIVE) Urine Urobilinogen Norm (Negative) mg/dL Ur Leukocyte Dilia ase 2+ H (Negative) Urine RBC 5-10 H (0-2) /hpf Urine WBC 25-40 H (0-5) /hpf Ur Squamous Epith Cells 5-10 H (0-5) Ur Renal Epithelia l Cell 0-2 /hpf Urine Bacteria 1+ H (NONE) Discharge Plan Discharge Patient Disposition: Home, Self-Care Clinical Impression: Acute cystitis Qualifiers: Hematuria presence: without hematuria Qualified Code(s): N30.00 - Acute cystitis without hematuria Condition: Stable Prescriptions: New Keflex 500 mg capsule 500 mg PO Q6H 7 Days Qty: 28 RF: 0 No Action amlodipine 10 mg Tablet 10 mg PO DAILY RF: 0 losartan 25 mg Tablet 25 mg PO DAILY RF: 0 acetaminophen 325 mg Tablet 650 mg PO Q6H PRN (Reason: Mild pain) Qty: 120 RF: 0 hydrocodone-acetaminophen 5-325 mg Tablet 1 - 2 tab PO Q4H PRN (Reason: Breakthrough Pain) Qty: 30 RF: 0 insulin aspart U-100 [Novolog U-100 Insulin aspart] 100 unit/mL Solution See Rx Instructions .ROUTE .COMPLEX Qty: 10 RF: 0 Lantus U-100 Insulin 100 unit/mL Solution 8 unit SUBCUT BEDTIME Qty: 10 RF: 0 lorazepam 0.5 mg Tablet 0.5 mg PO BID PRN (Reason: Anxiety) Qty: 30 RF: 0 trazodone 150 mg Tablet 150 mg PO BEDTIME Qty: 30 RF: 0 Miralax 17 gram Powder In Packet 17 g PO DAILY PRN (Reason: unknown) RF: 0 Milk of Magnesia 400 mg/5 mL Suspension 30 ml PO PRN RF: 0 bisacodyl 10 mg Suppository 10 mg VT DAILY PRN (Reason: Constipation) RF: 0 Enema Disposable 19-7 gram/118 mL Enema 118 ml VT DAILY PRN (Reason: Constipation) RF: 0 omeprazole 20 mg Capsule,Delayed Release(Dr/Ec) 20 mg PO DAILY RF: 0 sennosides-docusate sodium 8.6-50 mg tablet See Rx Instructions .ROUTE .COMPLEX PRN (Reason: unknown) RF: 0 rosuvastatin 40 mg tablet 40 mg PO QPM RF: 0 Discharge Orders: Discharge Order (Routine); Ordered 01/07/20 Ordered By: Stephani Hays Referrals: Hardy Saab DO [Primary Care Provider] - 4-7 days Discharge Diet: Advance as tolerated Discharge Activity: Resume usual activity Patient Instructions: Urinary Tract Infection in Women (ED) Discharge Date/Time: 01/07/20 22:36 Coding Level of Care Code ED Marketing Development Specialist for Chg Fwd Exam Comprehensive Documented by User: Stephani Hays MD 01/07/20 22:15 HPI - Weakness General: Chief complaint: Weakness Stated complaint: WEAKNESS/ CHANGE IN MENTAL STATUS Time Seen by Provider: 01/07/20 17:00 PFSH ED PFSH: Medical History Bifascicular block Chronic kidney disease (CKD), stage IV (severe) Degenerative joint disease Diabetes Dyslipidemia GERD (gastroesophageal reflux disease) Hypertension Von Willebrands disease Pt reported, PCP not not have diagnosis in her records Surgical History H/O cardiac catheterization 2009, normal EF nonsignificant irregular coronary artery disease Hx of cholecystectomy S/P cataract surgery Status post open reduction and internal fixation (ORIF) of fracture left hip, 12/2019, Dr Austin Family History Denies family history of CAD (coronary artery disease) Clotting disorder Chronic kidney disease (CKD) Social History Smoking and tobacco status: never smoked Alcohol intake: never Lives independently: Yes Additional social history: Her sister has power of mail order biller named Sujatha Jeovanny Vital Signs: Vital signs: Vital Signs Pulse Rate 93 01/07/20 22:31 Respiratory Rate 18 01/07/20 22:31 Blood Pressure 120/66 01/07/20 22:31 Pulse Oximetry 95 01/07/20 22:31 MDM - Weakness MDM Narrative: Medical decision making narrative: 2019 while patient was using bedside commode she had a fall. She did strike her head she has a mild headache. Will CT her head to rule out any major head injuries. [address] here is negative. She had slipped and fell due to her socks being slippery. Patient does have a UTI and will discharge back to snf on antibiotics. Patient has been stable while here. Lab Data: Labs: Lab Results 01/07/20 01/07/20 01/07/20 Range/Units 16:43 16:43 18:40 WBC 8.4 (4.0-10.0) 10^3/ uL RBC 2.95 L (4.1-5.3) 10^6/u L Hgb 9.4 L (11.5-15.3) g/dL Hct 29.3 L (37.0-47.0) % MCV 99.3 H (81-99) fL MCH 31.9 (28.0-34.0) pg MCHC 32.1 (30.0-36.0) g/dL RDW 15.6 H (12.1-15.1) % Plt Count 362 (130-400) 10^3/c mm MPV 9.2 (7.4-10.4) fL Neut % (Auto) 72.2 % Lymph % (Auto) 17.7 % Powell % (Auto) 9.1 % Eos % (Auto) 0.2 % Baso % (Auto) 0.4 % Neut # (Auto) 6.1 (1.8-7.7) 10^3/u L Lymph # (Auto) 1.5 (0.8-4.8) 10^3/u L Powell # (Auto) 0.8 (0.2-0.9) 10^3/u L Eos # (Auto) 0.0 (0.0-0.8) 10^3/u L Baso # (Auto) 0.0 (0.0-0.1) 10^3/u L Nucleated RBC % (a uto) 0 % Nucleated RBCs # 0.0 /100WBC Sodium 133 L (136-145) mmol/L Potassium 4.1 (3.5-5.1) mmol/L Chloride 99 (98-107) mmol/L Carbon Dioxide 18 L (22-29) mmol/L Anion Gap 20.1 H (5-19) BUN 21 (8-23) mg/dL Creatinine 2.5 H (0.5-0.9) mg/dL Glucose 141 H (65-115) mg/dL Calculated Osmolal ity 275 L (285-295) mOsm/k g Calcium 8.1 L (8.5-10.5) mg/dL Total Bilirubin 1.3 H (0.15-1.2) mg/dL AST 53 H (0-32) U/L ALT 26 (0-33) U/L Alkaline Phosphata se 121 H (35-105) IU/L Total Protein 5.8 L (6.6-8.7) g/dL Albumin 3.2 L (3.5-5.2) g/dL Globulin 2.6 (1.3-4.6) g/dL Urine Color Yellow (Yellow) Urine Appearance Sl cloudy A (CLEAR) Urine pH 5 (5-7) Ur Specific Gravit y 1.005 (1.005-1.030) Urine Protein Neg (Negative) Urine Glucose (UA) Norm (Normal) Urine Ketones Negative (Negative) Urine Blood 3+ H (Negative) Urine Nitrate Negative (Negative) Urine Bilirubin Neg (NEGATIVE) Urine Urobilinogen Norm (Negative) mg/dL Ur Leukocyte Dilia ase 2+ H (Negative) Urine RBC 5-10 H (0-2) /hpf Urine WBC 25-40 H (0-5) /hpf Ur Squamous Epith Cells 5-10 H (0-5) Ur Renal Epithelia l Cell 0-2 /hpf Urine Bacteria 1+ H (NONE) Imaging Data^: CT Head: Radiologist's impression: [address] [address] [address] Scan Report Signed Patient: Corie Tomas Unit #: [id number] : 1940 Age/Sex: 79 / F ADM Date: 01/07/20 Loc: ER Room/Bed: Attending Dr: Ordering Provider/Ordering MD: Stephani Hays MD Date of Service: 01/07/20 Procedure(s): CT head wo con* [id number] Accession Number(s): [id number] Report Number: [id number] PROCEDURE INFORMATION: Exam: CT Head Without Contrast Exam date and time: 01/07/2020 8:20 PM Age: 79 years old Clinical indication: Injury or trauma; Fall; Initial encounter; Concussion / head injury; Without loss of consciousness TECHNIQUE: Imaging protocol: Computed tomography of the head without contrast. Radiation optimization: All CT scans at this facility use at least one of these dose optimization techniques: automated exposure control; mA and/or kV adjustment per patient size (includes targeted exams where dose is matched to clinical indication); or iterative reconstruction. COMPARISON: CT head wo con* [id number] 06/12/2015 11:01 AM RADIATION DOSE METRICS: Total DLP: 1325.42 mGy-cm FINDINGS: Brain: Moderate diffuse cortical volume loss. Mild hypodensities in supratentorial periventricular and subcortical white matter. Physiologic calcifications of the basal ganglia. No intracranial hemorrhage. Ventricles: Normal. No ventriculomegaly. Bones/joints: Unremarkable. No acute fracture. Sinuses: Visualized sinuses are unremarkable. No fluid levels. Mastoid air cells: Visualized mastoid air cells are well aerated. Soft tissues: Superior left parietal scalp contusion. Vasculature: No hyperdense artery. CT/CT head wo con* [id number] IMPRESSION: 1. No fracture or intracranial hemorrhage. 2. Left parietal scalp contusion. 3. Mild microangiopathy. CXR: Attestation: I personally reviewed and interpreted this imaging study as follows: My impression: no acute abnormality Discharge Plan Discharge Patient Disposition: Home, Self-Care Clinical Impression: Acute cystitis Qualifiers: Hematuria presence: without hematuria Qualified Code(s): N30.00 - Acute cystitis without hematuria Condition: Stable Prescriptions: New Keflex 500 mg capsule 500 mg PO Q6H 7 Days Qty: 28 RF: 0 No Action amlodipine 10 mg Tablet 10 mg PO DAILY RF: 0 losartan 25 mg Tablet 25 mg PO DAILY RF: 0 acetaminophen 325 mg Tablet 650 mg PO Q6H PRN (Reason: Mild pain) Qty: 120 RF: 0 hydrocodone-acetaminophen 5-325 mg Tablet 1 - 2 tab PO Q4H PRN (Reason: Breakthrough Pain) Qty: 30 RF: 0 insulin aspart U-100 [Novolog U-100 Insulin aspart] 100 unit/mL Solution See Rx Instructions .ROUTE .COMPLEX Qty: 10 RF: 0 Lantus U-100 Insulin 100 unit/mL Solution 8 unit SUBCUT BEDTIME Qty: 10 RF: 0 lorazepam 0.5 mg Tablet 0.5 mg PO BID PRN (Reason: Anxiety) Qty: 30 RF: 0 trazodone 150 mg Tablet 150 mg PO BEDTIME Qty: 30 RF: 0 Miralax 17 gram Powder In Packet 17 g PO DAILY PRN (Reason: unknown) RF: 0 Milk of Magnesia 400 mg/5 mL Suspension 30 ml PO PRN RF: 0 bisacodyl 10 mg Suppository 10 mg VT DAILY PRN (Reason: Constipation) RF: 0 Enema Disposable 19-7 gram/118 mL Enema 118 ml VT DAILY PRN (Reason: Constipation) RF: 0 omeprazole 20 mg Capsule,Delayed Release(Dr/Ec) 20 mg PO DAILY RF: 0 sennosides-docusate sodium 8.6-50 mg tablet See Rx Instructions .ROUTE .COMPLEX PRN (Reason: unknown) RF: 0 rosuvastatin 40 mg tablet 40 mg PO QPM RF: 0 Discharge Orders: Discharge Order (Routine); Ordered 01/07/20 Ordered By: Stephani Hays Referrals: Hardy Saab DO [Primary Care Provider] - 4-7 days Discharge Diet: Advance as tolerated Discharge Activity: Resume usual activity Patient Instructions: Urinary Tract Infection in Women (ED) Discharge Date/Time: 01/07/20 22:36 Coding Level of Care Code ED Marketing Development Specialist for Chg Fwd Exam Comprehensive
--- NOTE | 2020-01-07 17:15 | ECG_ITS ---
Measurements Intervals [place] Rate: 85 P: 85 MA: 158 QRS: -74 QRSD: 109 T: 53 QT: 462 QTc: 551 SINUS RHYTHM WITH OCCASIONAL SUPRAVENTRICULAR PREMATURE COMPLEXES LOW QRS VOLTAGE IN PRECORDIAL LEADS INCOMPLETE RIGHT BUNDLE BRANCH BLOCK LEFT ANTERIOR FASCICULAR BLOCK PROLONGED QT INTERVAL Compared to ECG 06/12/2015 10:19:20 Low QRS voltage now present Incomplete right bundle-branch block now present Prolonged QT interval now present Sinus bradycardia no longer present Electronically Signed On 01-08-2020 18:09:39 CDT by Susie Cooper M.D. [id number]
--- NOTE | 2020-01-07 17:15 | XR_ITS ---
WS: [id number] CHEST XRAY TECHNIQUE: Portable chest. CLINICAL INFORMATION: dyspnea/cough COMPARISON: December 28, 2019 FINDINGS: Heart: Normal cardiac silhouette. Aortic calcification. Lungs: Lungs are clear. No consolidation or pleural effusion. Bones: Normal visualized bony structures. XR/XR chest 1V portable [id number] IMPRESSION: No acute chest findings
[2020-01-07 17:31] LABS: Basophils % 0.4 %; Eosinophils % 0.2 %; Hematocrit 29.3 % (37.0-47.0); Hemoglobin 9.4 g/dL (11.5-15.3); Lymphocytes # 1.5 10^3/uL (0.8-4.8); Lymphocytes % 17.7 %; Mean Corpuscular HGB Conc 32.1 g/dL (30.0-36.0); Mean Corpuscular Hemoglobin 31.9 pg (28.0-34.0); Mean Corpuscular Volume 99.3 fL (81-99); Mean Platelet Volume 9.2 fL (7.4-10.4); Monocytes # 0.8 10^3/uL (0.2-0.9); Monocytes % 9.1 %; Neutrophils # 6.1 10^3/uL (1.8-7.7); Neutrophils % 72.2 %; Nucleated Red Blood Cells % 0 %; Platelet Count 362 10^3/cmm (130-400); Red Blood Count 2.95 10^6/uL (4.1-5.3); Red Cell Distribution Width 15.6 % (12.1-15.1); White Blood Count 8.4 10^3/uL (4.0-10.0)
[2020-01-07 17:45] LABS: Alanine Aminotransferase 26 U/L (0-33); Albumin Level 3.2 g/dL (3.5-5.2); Alkaline Phosphatase 121 IU/L (35-105); Anion Gap 20.1 (5-19); Aspartate Amino Transferase 53 U/L (0-32); Blood Urea Nitrogen 21 mg/dL (8-23); Calcium 8.1 mg/dL (8.5-10.5); Carbon Dioxide 18 mmol/L (22-29); Chloride 99 mmol/L (98-107); Globulin 2.6 g/dL (1.3-4.6); Glucose 141 mg/dL (65-115); Osmolality Calculated 275 mOsm/kg (285-295); Potassium 4.1 mmol/L (3.5-5.1); Sodium 133 mmol/L (136-145); Total Bilirubin 1.3 mg/dL (0.15-1.2); Total Protein 5.8 g/dL (6.6-8.7)
[2020-01-07] MEDS: sodium chloride 0.9% 500 ML 999 ML IV (17:50)
[2020-01-07] MEDS: sodium chloride 0.9% 1,000 ML 999 ML IV (18:48)
[2020-01-07 18:58] LABS: Urine Color Yellow (Yellow)
[2020-01-07 18:59] LABS: Add Urine Microscopic? YES; Bilirubin Urine Neg (NEGATIVE); Blood Urine 3+ (Negative); Glucose Urine UA Norm (Normal); Ketones Urine Negative (Negative); Leukocyte Esterase Urine 2+ (Negative); Nitrate Urine Negative (Negative); Protein Urine Neg (Negative); Specific Gravity, Urine 1.005 (1.005-1.030); Urobilinogen Urine Norm (Negative); pH Urine 5 (5-7)
[2020-01-07 19:06] LABS: WBC Urine 25-40 /hpf (0-5)
[2020-01-07 19:07] LABS: Add Urine Culture? No; Bacteria Urine 1+; Renal Epithelial Cells Urine 0-2 /hpf
[2020-01-07] MEDS: cefTRIAXone 1,000 MG in sodium chloride 0.9% (plus) 50 ML 100 MG IV (19:13)
--- NOTE | 2020-01-07 20:19 | CTR_ITS ---
PROCEDURE INFORMATION: Exam: CT Head Without Contrast Exam date and time: 01/07/2020 8:20 PM Age: 79 years old Clinical indication: Injury or trauma; Fall; Initial encounter; Concussion / head injury; Without loss of consciousness TECHNIQUE: Imaging protocol: Computed tomography of the head without contrast. Radiation optimization: All CT scans at this facility use at least one of these dose optimization techniques: automated exposure control; mA and/or kV adjustment per patient size (includes targeted exams where dose is matched to clinical indication); or iterative reconstruction. COMPARISON: CT head wo con* [id number] 06/12/2015 11:01 AM RADIATION DOSE METRICS: Total DLP: 1325.42 mGy-cm FINDINGS: Brain: Moderate diffuse cortical volume loss. Mild hypodensities in supratentorial periventricular and subcortical white matter. Physiologic calcifications of the basal ganglia. No intracranial hemorrhage. Ventricles: Normal. No ventriculomegaly. Bones/joints: Unremarkable. No acute fracture. Sinuses: Visualized sinuses are unremarkable. No fluid levels. Mastoid air cells: Visualized mastoid air cells are well aerated. Soft tissues: Superior left parietal scalp contusion. Vasculature: No hyperdense artery. CT/CT head wo con* [id number] IMPRESSION: 1. No fracture or intracranial hemorrhage. 2. Left parietal scalp contusion. 3. Mild microangiopathy. Radiation Dose CTDIVOL = (mGy): DLP = 1325.42 (mGy-cm)
--- NOTE | 2020-01-07 20:31 | PC.NURSE ---
Pt. slipped while getting up from bedside commode. Tech was with pt. and assisted pt. to floor. Pt. hit her head on stretcher. Assisted back to bed by staff. notified. Pt. to CT scan. Awake, alert, and oriented x 4.
== END 2020-01-07 22:36 | disposition home or self-care (01) ==
PROVIDERS: Family Medicine; Emergency Provider Emergency Medicine; PCP Internal Medicine
DX: N30.00 Acute cystitis without hematuria (principal); Z79.4 Long term (current) use of insulin; I12.9 Hypertensive chronic kidney disease with stage 1 through stage 4 chronic kidney disease, or unspecified chronic kidney disease; E11.22 Type 2 diabetes mellitus with diabetic chronic kidney disease; N18.4 Chronic kidney disease, stage 4 (severe); E78.5 Hyperlipidemia, unspecified; K21.9 Gastro-esophageal reflux disease without esophagitis
CPT/HCPCS: 12345; 70450; 71045; 80053; 81001; 85025; 93005; 96360; 96361; 96365; 99283; 99284; J0696; J7030; J7040

== ENCOUNTER → 2020-01-26 10:40 | Outpatient (BNVA) | payer MEDICARE, MEDICAID, SELFPAY | PROVIDERS: PCP Internal Medicine; Visit Provider Orthopaedic Surgery | DX: Z98.890 Other specified postprocedural states (principal); Z87.81 Personal history of (healed) traumatic fracture; M25.559 Pain in unspecified hip | CPT/HCPCS: 73502 ==

== ENCOUNTER 2020-03-09 21:18 | Inpatient (IN) | payer MEDICARE, MEDICAID, SELFPAY ==
--- NOTE | 2020-03-09 21:21 | ECG_ITS ---
[facility] Test Date: 2020-03-09 Pat Name: Corie Tomas Department: Room: Gender: Female Dispatcher [employer]: : 1940 Requested By: Stephani Hays Order Number: [id number] [place] MD: Rj Thomas M.D. Measurements Intervals [place] Rate: 54 P: 74 MS: 186 QRS: -46 QRSD: 122 T: 21 QT: 472 QTc: 450 Interpretive Statements SINUS BRADYCARDIA WITH OCCASIONAL VENTRICULAR PREMATURE COMPLEXES RIGHT BUNDLE BRANCH BLOCK [120+ ms QRS DURATION, UPRIGHT V1, 40+ ms S IN I/aVL/V4/V5/V6] LEFT ANTERIOR FASCICULAR BLOCK [QRS AXIS <= -45, QR IN I, RS IN II] Compared to ECG 01/07/2020 17:43:08 Ventricular premature complex(es) now present Right bundle-branch block now present Sinus rhythm no longer present Incomplete right bundle-branch block no longer present Prolonged QT interval no longer present Electronically Signed On 03-10-2020 17:06:25 CDT by Rj Thomas M.D. [id number]
--- NOTE | 2020-03-09 21:21 | XR_ITS ---
WS: [id number] Portable AP upright chest, 03/09/2020 Clinical Data: chest pain Comparison: Portable chest, 01/07/2020. Findings: No nodules, masses or effusions are seen. The heart is normal. The pulmonary vascularity is not increased. No pneumonia or pneumothorax is seen. The aortic arch and descending aorta minimally tortuous. There is absence of the lateral aspect of the right clavicle from surgery. XR/XR chest 1V portable [id number] Impression: Atherosclerosis.
[2020-03-09 21:26] VITALS: BMI 29.0
[2020-03-09 21:49] LABS: Basophils % 0.7 %; Eosinophils # 0.2 10^3/uL (0.0-0.8); Hematocrit 28.1 % (37.0-47.0); Hemoglobin 8.7 g/dL (11.5-15.3); Lymphocytes # 1.5 10^3/uL (0.8-4.8); Lymphocytes % 27.3 %; Mean Corpuscular Hemoglobin 32.2 pg (28.0-34.0); Mean Corpuscular Volume 104.1 fL (81-99); Mean Platelet Volume 9.8 fL (7.4-10.4); Monocytes # 0.5 10^3/uL (0.2-0.9); Monocytes % 9.4 %; Neutrophils # 3.34 10^3/uL (1.8-7.7); Neutrophils % 59.2 %; Nucleated Red Blood Cells % 0 %; Platelet Count 199 10^3/cmm (130-400); White Blood Count 5.6 10^3/uL (4.0-10.0)
[2020-03-09 22:01] LABS: INR 1.01 (0.8-1.2)
--- NOTE | 2020-03-09 22:02 | W.ED.CHESTPA ---
HPI - Chest Pain General: Stated Complaint: CP Time Seen by Provider: 03/09/20 21:21 Source: patient Mode of arrival: ambulatory Limitations: no limitations History of Present Illness: HPI narrative: 79-year-old female presents here by EMS. [facility] and worsened this evening. When they arrived patient was bradycardic with heart rate into the 30s and low blood pressure. They gave her atropine and heart rate is now in the 60s and blood pressures in the 160s. Patient currently states she has chest pain that is a 2 out of 10 and is improved. She denies any shortness of breath. Denies any vomiting or diarrhea. MD complaint: chest pain Associated symptoms: Deny abdominal pain, dyspnea, fever(s), nausea or vomiting Review of Systems Const: Denies: fever(s), chills, body aches or change in appetite Eyes: Denies: blurry vision or eye discomfort ENMT: Denies: throat pain or dental pain Card: Reports: chest pain Resp: Denies: dyspnea GI: Denies: abdominal pain, nausea, vomiting or diarrhea : Denies: dysuria Musc: Denies: neck pain or back pain Skin/Breast: Denies: rash Neuro: Denies: headache(s) Psych: Denies: depression Fede/Lymph: Denies: easy bruising All/Imm: Denies: urticaria PFSH ED PFSH: Medical History Bifascicular block Chronic kidney disease (CKD), stage IV (severe) Degenerative joint disease Diabetes Dyslipidemia GERD (gastroesophageal reflux disease) Hypertension Von Willebrands disease Pt reported, PCP not not have diagnosis in her records Surgical History H/O cardiac catheterization 2009, normal EF nonsignificant irregular coronary artery disease Hx of cholecystectomy S/P cataract surgery Status post open reduction and internal fixation (ORIF) of fracture left hip, 12/2019, Dr Austin Family History Denies family history of CAD (coronary artery disease) Clotting disorder Chronic kidney disease (CKD) Social History Smoking and tobacco status: never smoked Alcohol intake: never Lives independently: Yes Additional social history: Her sister has power of senior trial attorney named Sujatha Physical Exam Const: COMMON NORMALS: no acute distress, patient oriented x3 and healthy appearing HENMT: COMMON NORMALS: normocephalic and atraumatic HEAD & SCALP: normocephalic and atraumatic Eye: COMMON NORMALS: Equal, round and reactive pupils present and EOMs intact bilaterally PUPIL: Yes Equal, round and reactive pupils present Neck/C-Spine: COMMON NORMALS: full ROM and supple Chest: COMMONS NORMALS: normal inspection of the chest and normal palpation of entire chest wall Resp: COMMON NORMALS: normal respiratory effort, No retractions, No use of accessory muscles and clear to auscultation bilaterally AUSCULTATION: clear to auscultation bilaterally Cardio: COMMON NORMALS: regular rhythm and No murmurs present (Cardio) RATE: bradycardic RHYTHM: regular rhythm GI: COMMON NORMALS: Normal to inspection, nondistended, normoactive bowel sounds present, Soft to palpation, non-tender and no masses PALPATION: Yes Soft to palpation Extremity: COMMON NORMALS: normal to inspection and full ROM Neuro: COMMON NORMALS: patient oriented x3, moves all extremities and no focal motor deficits Psych: COMMON NORMALS: mental status grossly normal, Normal thought process present and cooperative THOUGHT PROCESS: Normal thought process present Skin: COMMON NORMALS: no rashes or lesions noted and no wounds GENERAL SKIN EXAM: no rashes or lesions noted Course Vital Signs: Vital signs: Vital Signs Pulse Rate 59 L 03/09/20 23:36 Respiratory Rate 17 03/09/20 23:36 Pulse Oximetry 100 03/09/20 23:36 MDM - Chest Pain MDM Narrative: Medical decision making narrative: Patient presents here with chest pain and bradycardia. Patient chest pain is since resolved and second troponin here is unchanged. She has had some periods of bradycardia here but nonsustained. Her pressures have been normal. Spoke to hospitalist will admit for observation. Lab Data: Labs: Lab Results 03/09/20 03/09/20 03/09/20 Range/Units 21:43 21:43 21:43 WBC 5.6 (4.0-10.0) 10^3/ uL RBC 2.70 L (4.1-5.3) 10^6/u L Hgb 8.7 L (11.5-15.3) g/dL Hct 28.1 L (37.0-47.0) % MCV 104.1 H (81-99) fL MCH 32.2 (28.0-34.0) pg MCHC 31.0 (30.0-36.0) g/dL RDW 12.0 L (12.1-15.1) % Plt Count 199 (130-400) 10^3/c mm MPV 9.8 (7.4-10.4) fL Neut % (Auto) 59.2 % Lymph % (Auto) 27.3 % Hawkins % (Auto) 9.4 % Eos % (Auto) 3.0 % Baso % (Auto) 0.7 % Neut # (Auto) 3.34 (1.8-7.7) 10^3/u L Lymph # (Auto) 1.5 (0.8-4.8) 10^3/u L Hawkins # (Auto) 0.5 (0.2-0.9) 10^3/u L Eos # (Auto) 0.2 (0.0-0.8) 10^3/u L Baso # (Auto) 0.0 (0.0-0.1) 10^3/u L Nucleated RBC % (a uto) 0 % Nucleated RBCs # 0.0 /100WBC PT 13.60 H (10.5-13.3) SECO NDS INR 1.01 (0.8-1.2) Sodium 133 L (136-145) mmol/L Potassium 5.0 (3.5-5.1) mmol/L Chloride 104 (98-107) mmol/L Carbon Dioxide 19 L (22-29) mmol/L Anion Gap 15.0 (5-19) BUN 25 H (8-23) mg/dL Creatinine 1.9 H (0.5-0.9) mg/dL GFR Calculation Not Reportable Glucose 159 H (65-115) mg/dL Calculated Osmolal ity 276 L (285-295) mOsm/k g Calcium 9.0 (8.5-10.5) mg/dL Total Bilirubin 0.2 (0.15-1.2) mg/dL AST 22 (0-32) U/L ALT 14 (0-33) U/L Alkaline Phosphata se 100 (35-105) IU/L Troponin T Baselin e (0-10) ng/L Troponin T 120 Min [place] (0-10) ng/L Delta Troponin T (0-10) ABS# Total Protein 6.5 L (6.6-8.7) g/dL Albumin 3.8 (3.5-5.2) g/dL Globulin 2.7 (1.3-4.6) g/dL 03/09/20 03/09/20 Range/Units 21:43 23:25 WBC (4.0-10.0) 10^3/ uL RBC (4.1-5.3) 10^6/u L Hgb (11.5-15.3) g/dL Hct (37.0-47.0) % MCV (81-99) fL MCH (28.0-34.0) pg MCHC (30.0-36.0) g/dL RDW (12.1-15.1) % Plt Count (130-400) 10^3/c mm MPV (7.4-10.4) fL Neut % (Auto) % Lymph % (Auto) % Hawkins % (Auto) % Eos % (Auto) % Baso % (Auto) % Neut # (Auto) (1.8-7.7) 10^3/u L Lymph # (Auto) (0.8-4.8) 10^3/u L Hawkins # (Auto) (0.2-0.9) 10^3/u L Eos # (Auto) (0.0-0.8) 10^3/u L Baso # (Auto) (0.0-0.1) 10^3/u L Nucleated RBC % (a uto) % Nucleated RBCs # /100WBC PT (10.5-13.3) SECO NDS INR (0.8-1.2) Sodium (136-145) mmol/L Potassium (3.5-5.1) mmol/L Chloride (98-107) mmol/L Carbon Dioxide (22-29) mmol/L Anion Gap (5-19) BUN (8-23) mg/dL Creatinine (0.5-0.9) mg/dL GFR Calculation Glucose (65-115) mg/dL Calculated Osmolal ity (285-295) mOsm/k g Calcium (8.5-10.5) mg/dL Total Bilirubin (0.15-1.2) mg/dL AST (0-32) U/L ALT (0-33) U/L Alkaline Phosphata se (35-105) IU/L Troponin T Baselin e 68 H (0-10) ng/L Troponin T 120 Min [place] 68.21 H (0-10) ng/L Delta Troponin T 0.21 (0-10) ABS# Total Protein (6.6-8.7) g/dL Albumin (3.5-5.2) g/dL Globulin (1.3-4.6) g/dL Imaging Data^: CXR: Attestation: I personally reviewed and interpreted this imaging study as follows: My impression: no acute abnormality EKG Data^: EKG 1: Attestation: I personally reviewed and interpreted this EKG as follows: EKG interpretation date: 03/09/20 EKG interpretation time: 21:27 Interpretation: sinus aravind hr [address] or t wave abnormalities qrs 122 qtc 458 Discharge Plan Discharge Prescriptions: No Action amlodipine 10 mg Tablet 10 mg PO DAILY RF: 0 losartan 25 mg Tablet 25 mg PO DAILY RF: 0 acetaminophen 325 mg Tablet 650 mg PO Q6H PRN (Reason: Mild pain) Qty: 120 RF: 0 hydrocodone-acetaminophen 5-325 mg Tablet 1 - 2 tab PO Q4H PRN (Reason: Breakthrough Pain) Qty: 30 RF: 0 insulin aspart U-100 [Novolog U-100 Insulin aspart] 100 unit/mL Solution See Rx Instructions .ROUTE .COMPLEX Qty: 10 RF: 0 Lantus U-100 Insulin 100 unit/mL Solution 8 unit SUBCUT BEDTIME Qty: 10 RF: 0 lorazepam 0.5 mg Tablet 0.5 mg PO BID PRN (Reason: Anxiety) Qty: 30 RF: 0 trazodone 150 mg Tablet 150 mg PO BEDTIME Qty: 30 RF: 0 Miralax 17 gram Powder In Packet 17 g PO DAILY PRN (Reason: unknown) RF: 0 Milk of Magnesia 400 mg/5 mL Suspension 30 ml PO PRN RF: 0 bisacodyl 10 mg Suppository 10 mg NE DAILY PRN (Reason: Constipation) RF: 0 Enema Disposable 19-7 gram/118 mL Enema 118 ml NE DAILY PRN (Reason: Constipation) RF: 0 omeprazole 20 mg Capsule,Delayed Release(Dr/Ec) 20 mg PO DAILY RF: 0 sennosides-docusate sodium 8.6-50 mg tablet See Rx Instructions .ROUTE .COMPLEX PRN (Reason: unknown) RF: 0 rosuvastatin 40 mg tablet 40 mg PO QPM RF: 0 Coding Level of Care Code ED Final Operations Technician for Chg Fwd Exam Comprehensive
[2020-03-09 22:08] LABS: Alanine Aminotransferase 14 U/L (0-33); Albumin Level 3.8 g/dL (3.5-5.2); Alkaline Phosphatase 100 IU/L (35-105); Aspartate Amino Transferase 22 U/L (0-32); Blood Urea Nitrogen 25 mg/dL (8-23); Carbon Dioxide 19 mmol/L (22-29); Chloride 104 mmol/L (98-107); Globulin 2.7 g/dL (1.3-4.6); Glucose 159 mg/dL (65-115); Osmolality Calculated 276 mOsm/kg (285-295); Sodium 133 mmol/L (136-145); Total Bilirubin 0.2 mg/dL (0.15-1.2); Total Protein 6.5 g/dL (6.6-8.7)
[2020-03-09 22:10] LABS: Troponin(5th) Baseline 68 ng/L (0-10)
--- NOTE | 2020-03-09 22:24 | PC.NURSE ---
Collected urine and sent to lab
[2020-03-09 22:49] VITALS: PULSE 54; RESP 18; O2SAT 99
--- NOTE | 2020-03-09 23:21 | ECG_ITS ---
[facility] Test Date: 2020-03-10 Pat Name: Corie Tomas Department: Room: ICU04 Gender: Female Mechanical Designer: Van REILLY: 1940 Requested By: Stephani Hays Order Number: [id number] Tapan MD: Rj Thomas M.D. Measurements Intervals [place] Rate: 61 P: NV: -1 QRS: -75 QRSD: 120 T: 49 QT: 494 QTc: 501 Interpretive Statements SINUS RHYTHM WITH 2ND DEGREE AV BLOCK, 2:1 OR MOBITZ TYPE II RIGHT BUNDLE BRANCH BLOCK [120+ ms QRS DURATION, UPRIGHT V1, 40+ ms S IN I/aVL/V4/V5/V6] LEFT ANTERIOR FASCICULAR BLOCK [QRS AXIS <= -45, QR IN I, RS IN II] CRITICAL TEST RESULT Compared to ECG 03/09/2020 21:27:30 Sinus bradycardia no longer present Ventricular premature complex(es) no longer present Electronically Signed On 03-10-2020 17:09:07 CDT by Rj Thomas M.D. [id number]
[2020-03-09 23:36] VITALS: PULSE 59; RESP 17; O2SAT 100
--- NOTE | 2020-03-09 23:37 | PC.NURSE ---
Pt took her blood pressure cuff off, and did not want to put it back on due to it squeezing too tightly.
[2020-03-10] VITALS (29 sets, daily range): BP systolic 145–190; BP diastolic 46–86; PULSE 39–64; RESP 12–25; TEMP 36.8–37.4; O2SAT 88–100
[2020-03-10 00:09] LABS: Troponin 5 2HR 68.21 ng/L (0-10); Troponin 5 2HR Delta 0.21 ABS# (0-10)
--- NOTE | 2020-03-10 00:25 | PM.HP ---
Providers/Chief Complaint Primary Care Provider: Hardy Saab DO Chief Complaint: CP History of Present Illness Corie Tomas is a 79 year old female who carries history of chronic kidney disease, von Willebrand disease, insulin-dependent diabetes, coming in for chief complaint of chest pain. Of note she was given Humate-P before hip surgery on last visit however PCP notes are not consistent with von Willebrand's disease. She was evaluated by psychiatrist for cognitive impairment who recommended detailed neuro psychological testing. Patient is a resident of [facility]. Patient is stating that for last 2 weeks she has been having recurrent chest pain without any aggravating factors, tonight she was not able to sleep because of this chest pain, she is describing this discomfort as burning sensation, associated with numbness in her fingers bilaterally, she has not noticed severe orthopnea, PND, diaphoresis or vomiting but she is endorsing nausea, lethargy and fatigue. She is also endorsing bright bleed per rectum whenever she wipes herself, endorses history of hemorrhoids and von Willebrand disease. EMS was called when she complained about worsening chest pain at the facility. In route to the hospital she was given 0.5 mg of atropine because of her heart rate being low in 30s, on arrival to the ED her heart rate was in 60-65 range, systolic blood pressure ranging between 140 to 150 mmHg. Initial EKG revealed bifascicular block bradycardia with borderline QTc interval I requested another EKG which revealed second-high degree AV block, at the time of my evaluation she was chest pain-free, systolic blood pressure 150, she was awake alert oriented x3, was not complaining of shortness of breath, decision was made to transfer her to ICU overnight. She is asymptomatic at the time of my evaluation. Review of Systems Const: Reports: body aches, change in weight and fatigue; Denies: fever(s) or chills Eyes: Denies: change in vision ENMT: Denies: throat pain Card: Reports: chest pain, swelling of feet/ankles and dyspnea on exertion; Denies: palpitations, irregular heart rhythm or orthopnea Resp: Reports: dyspnea GI: Reports: nausea and constipation; Denies: abdominal pain or vomiting : Denies: flank pain Musc: Denies: neck pain Skin/Breast: Denies: rash Neuro: Denies: headache(s) or weakness in extremities Psych: Reports: depression; Denies: anxiety Endo: Denies: polyuria Fede/Lymph: Denies: easy bruising All/Imm: Denies: urticaria Medications/Allergies Home Medications Medication Instructions Recorded Confirmed Last Taken Type amlodipine 10 mg PO DAILY 12/28/19 01/26/20 01/07/20 08:00 History losartan 25 mg PO DAILY 12/28/19 01/26/20 12/27/19 History acetaminophen 650 mg PO Q6H PRN #120 tab 12/31/19 01/26/20 Unknown Rx hydrocodone-acetaminophen 1 - 2 tab PO Q4H PRN #30 tab 12/31/19 01/26/20 01/07/20 11:59 Rx 2 tabs insulin aspart U-100 [Novolog See Rx Instructions .ROUTE 12/31/19 01/26/20 Unknown Rx U-100 Insulin aspart] .COMPLEX #10 ml insulin glargine [Lantus U-100 8 unit SUBCUT BEDTIME #10 ml 12/31/19 01/26/20 Unknown Rx Insulin] lorazepam 0.5 mg PO BID PRN #30 tab 12/31/19 01/26/20 01/07/20 15:17 Rx trazodone 150 mg PO BEDTIME #30 tab 12/31/19 01/26/20 Unknown Rx bisacodyl 10 mg OR DAILY PRN 01/07/20 01/26/20 Unknown History magnesium hydroxide [Milk of 30 ml PO PRN 01/07/20 01/26/20 Unknown History Magnesia] omeprazole 20 mg PO DAILY 01/07/20 01/26/20 01/07/20 08:00 History polyethylene glycol 3350 [Miralax] 17 g PO DAILY PRN 01/07/20 01/26/20 Unknown History rosuvastatin 40 mg PO QPM 01/07/20 01/26/20 Unknown History sennosides-docusate sodium See Rx Instructions .ROUTE 01/07/20 01/26/20 01/07/20 History .COMPLEX PRN sodium phosphates [Enema 118 ml OR DAILY PRN 01/07/20 01/26/20 Unknown History Disposable] Allergies Allergy/AdvReac Type Severity Reaction Status Date / Time Penicillins Allergy Unknown Unknown Verified 01/26/20 11:05 Sulfa (Sulfonamide Allergy Unknown Unknown Verified 06/09/20 11:05 Antibiotics) aspirin Allergy ALGY-Rash Verified 01/26/20 11:05 PFSH Acute PFSH: Medical History Bifascicular block Chronic kidney disease (CKD), stage IV (severe) Degenerative joint disease Diabetes Dyslipidemia GERD (gastroesophageal reflux disease) Hypertension Von Willebrands disease Pt reported, PCP not not have diagnosis in her records Surgical History H/O cardiac catheterization 2009, normal EF nonsignificant irregular coronary artery disease Hx of cholecystectomy S/P cataract surgery Status post open reduction and internal fixation (ORIF) of fracture left hip, 12/2019, Dr Austin Family History Denies family history of CAD (coronary artery disease) Clotting disorder Chronic kidney disease (CKD) Social History Smoking and tobacco status: never smoked Alcohol intake: never Lives independently: Yes Additional social history: Her sister has power of insurance attorney named Sujatha Vitals/I&O/Wt Last Vital Signs Pulse 59 L 03/09/20 23:36 Resp 17 03/09/20 23:36 Pulse Ox 100 03/09/20 23:36 Weight last 48 hrs Weight 67.585 kg Physical Exam Narrative: EXAM NARRATIVE: Very pleasant elderly female lying comfortably in her bed Systolic blood pressure 150 mmHg Heart rate fluctuating between 30-65, no active chest pain shortness of breath confusion Awake alert oriented x3 GCS 15 Variable S1-S2, very mild signs of CHF exacerbation with bilateral lower extremity 1+ pitting edema Abdomen soft nontender distended with obesity bowel sound present Bilateral breath sounds without adventitious sounds or crackles EOMI, PERRLA Lethargic Lower extremity no signs of ischemia gangrene or ulcer Data : 03/09/20 21:43 03/09/20 21:43 A&P Assessment and plan (1) High degree atrioventricular block: Status: Acute (2) Bradycardia: Status: Acute (3) Sick sinus syndrome: Status: Acute (4) Chronic kidney disease (CKD), stage IV (severe): Status: Chronic (5) Hypertension: Status: Chronic Qualifiers: Hypertension type: renovascular hypertension Qualified Code(s): I15.0 - Renovascular hypertension (6) Diabetes: Status: Chronic Qualifiers: Diabetes mellitus type: type 2 Diabetes mellitus [facility] insulin use: with superintendent container terminal use Diabetes mellitus complication status: with kidney complications Diabetes mellitus complication detail: with chronic kidney disease Chronic kidney disease stage: stage 4 (severe) Qualified Code(s): E11.22 - Type 2 diabetes mellitus with diabetic chronic kidney disease; N18.4 - Chronic kidney disease, stage 4 (severe); Z79.4 - exterminator helper (current) use of insulin (7) Acute blood loss anemia: Status: Acute Additional A&P Information 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 bifascicular block Symptomatic bradycardia, she is a candidate for a permanent pacemaker We will make her n.p.o., consult cardiology in the morning as she is stable for now, transfer her to ICU Currently no red flags such as chest pain, shortness of breath, confusion, hypotension TSH checked on previous visit was normal Not on any beta-wilbert No history of established coronary artery disease, she carries history of atherosclerotic heart disease EF preserved Current troponin 62 with nonsignificant delta Unstable angina Nonsignificant delta troponin I will hold off on starting ACS protocol at this point however coronary ischemia needs to be ruled out to be the etiology for her symptoms and bradycardia Currently chest pain-free without infarctive or ischemic changes on the EKG Hypertension: I am holding her antihypertensive to avoid hypotension with underlying bradycardia Diabetes: N.p.o., sliding scale Acute blood loss anemia Patient endorses to von Willebrand disease and hemorrhoids, she has noticed bright bleed per rectum, endorses history of constipation Acute indication for blood transfusion, check FOBT CODE STATUS: Full code N.p.o. DVT prophylaxis not indicated because of active anemia Attestations Medical Necessity Statement*: Anticipating stay in the hospital cross more than 2 midnights currently need pacemaker placement for symptomatic bradycardia, currently need ICU Time Spent in Patient Care: (>than 50% of time spent in counselling and/or direct pt care on unit). 60 minutes Coding Level of Care Code Acute Production Gear Cutter for Chg Fwd Diagnoses High degree atrioventricular block I44.39 Bradycardia R00.1 Sick sinus syndrome I49.5 Chronic kidney disease (CKD), stage IV (severe) N18.4 Hypertension I15.0 Hypertension type: renovascular hypertension Diabetes E11.22; N18.4; Z79.4 Diabetes mellitus type: type 2 Diabetes mellitus [facility] insulin use: with [facility] use Diabetes mellitus complication status: with kidney complications Diabetes mellitus complication detail: with chronic kidney disease Chronic kidney disease stage: stage 4 (severe) Acute blood loss anemia D62
[2020-03-10 02:46] LABS: Glucose Point of Care 113 mg/dL (70-110)
--- NOTE | 2020-03-10 03:21 | ECG_ITS ---
[facility] Test Date: 2020-03-10 Pat Name: Corie Tomas Department: Room: ICU04 Gender: Female Hat Blocker: SHARAD ALEXANDRAB: 1940 Requested By: Stephani Hays Order Number: [id number] Tapan MD: Rj Thomas M.D. Measurements Intervals [place] Rate: 45 P: MS: -1 QRS: -57 QRSD: 121 T: 5 QT: 508 QTc: 440 Interpretive Statements SINUS BRADYCARDIA WITH 2ND DEGREE AV BLOCK, MOBITZ TYPE II RIGHT BUNDLE BRANCH BLOCK [120+ ms QRS DURATION, UPRIGHT V1, 40+ ms S IN I/aVL/V4/V5/V6] LEFT ANTERIOR FASCICULAR BLOCK [QRS AXIS <= -45, QR IN I, RS IN II] Compared to ECG 03/10/2020 01:11:03 Sinus rhythm no longer present Electronically Signed On 03-10-2020 17:09:34 CDT by Rj Thomas M.D. [email or web address]
[2020-03-10 04:45] LABS: Basophils % 0.7 %; Eosinophils # 0.2 10^3/uL (0.0-0.8); Eosinophils % 4.3 %; Hematocrit 26.3 % (37.0-47.0); Hemoglobin 7.9 g/dL (11.5-15.3); Lymphocytes # 1.5 10^3/uL (0.8-4.8); Lymphocytes % 33.3 %; Mean Corpuscular Hemoglobin 31.3 pg (28.0-34.0); Mean Corpuscular Volume 104.4 fL (81-99); Mean Platelet Volume 10.5 fL (7.4-10.4); Monocytes # 0.6 10^3/uL (0.2-0.9); Monocytes % 12.4 %; Neutrophils # 2.18 10^3/uL (1.8-7.7); Neutrophils % 49.3 %; Nucleated Red Blood Cells % 0 %; Platelet Count 186 10^3/cmm (130-400); Red Blood Count 2.52 10^6/uL (4.1-5.3); White Blood Count 4.4 10^3/uL (4.0-10.0)
[2020-03-10 05:24] LABS: Anion Gap 12.2 (5-19); Blood Urea Nitrogen 25 mg/dL (8-23); Calcium 8.9 mg/dL (8.5-10.5); Carbon Dioxide 20 mmol/L (22-29); Chloride 108 mmol/L (98-107); Glucose 116 mg/dL (65-115); Magnesium 2.1 mg/dL (1.7-2.3); Osmolality Calculated 278 mOsm/kg (285-295); Potassium 5.2 mmol/L (3.5-5.1); Sodium 135 mmol/L (136-145)
[2020-03-10 05:31] LABS: Troponin 5 6HR 70.09 ng/L (0-10); Troponin 5 6HR Delta 2.09 ng/L (0-12)
[2020-03-10 07:32] LABS: Glucose Point of Care 143 mg/dL (70-110)
--- NOTE | 2020-03-10 08:53 | P.DS_ITS ---
Discharge Providers Date of Admission: 03/10/20 01:17 Date of Discharge: March 10, 2020 Attending Provider at Admission: Grabiel Fraga MD Attending Provider at Discharge: Mark Anthony Hutn MD Primary Care Provider: Hardy Saab DO Diagnoses at Discharge Discharge Diagnosis (1) High degree atrioventricular block: Status: Acute Problem details: Sinus bradycardia, right bundle branch block and left anterior fascicular block. She refuses pacemaker, any intervention, reporting she will go back to the nursing facility today. (2) Bradycardia: Status: Acute (3) Sick sinus syndrome: Status: Acute (4) Chronic kidney disease (CKD), stage IV (severe): Status: Chronic (5) Hypertension: Status: Chronic Qualifiers: Hypertension type: renovascular hypertension Qualified Code(s): I15.0 - Renovascular hypertension (6) Diabetes: Status: Chronic Qualifiers: Diabetes mellitus type: type 2 Diabetes mellitus intermediate teacher insulin use: with [facility] use Diabetes mellitus complication status: with kidney complications Diabetes mellitus complication detail: with chronic kidney disease Chronic kidney disease stage: stage 4 (severe) Qualified Code(s): E11.22 - Type 2 diabetes mellitus with diabetic chronic kidney disease; N18.4 - Chronic kidney disease, stage 4 (severe); Z79.4 - terminal operator (current) use of insulin (7) Acute blood loss anemia: Status: Acute Reason for Visit Reason for Visit: CP Hospital Course Hospital Course: Corie is a 79-year-old white female that was admitted with chest discomfort yesterday from the emergency department via the [facility]. She also had significant bradycardia with heart rate in the 30s. Rhythm was sinus, with right bundle and left anterior fascicular block. She was placed in the ICU initially. Troponins showed no significant delta. Magnesium level was normal. Initial potassium 5.0, 5.2 on follow-up lab. When I entered the room to the ICU she reported that she wanted to be discharged at the [facility]. I had a rather lengthy discussion with her regarding her current wishes. She does not want any intervention, any pacemaker, any procedure at all at this time and only wants to go back to the [facility]. She is alert and oriented. I discus sed this with her power of systems test engineer who confirms that we should abide by her wishes. Secondary to this she was discharged to the nursing facility. I did discuss with the patient that and/or disability could occur secondary to her decision. She confirms that she is DNR. She does not want to be do not hospitalize at this time, making the decision of that when the occurrence should present itself. She denies any chest discomfort currently. ARB was stopped secondary to mild hyperkalemia. Physical Exam Narrative: EXAM NARRATIVE: General exam no apparent distress, alert and oriented x3 Cardiovascular bradycardic, regular, no murmur Lungs clear Abdomen is soft, positive bowel sounds Extremities no cyanosis clubbing Discharge Data Data Completed and Pending: Completed Studies During Hospitalization Category Date Time Status XR chest 1V sukhwinder ble [id number] Stat Exams 03/09/20 21:21 Completed Pending at discharge Category Date Time Status Cortisol Random R outine Lab 03/10/20 03:50 Received Ferritin Routine Lab 03/10/20 03:50 Received Immunochemical Fe rohith OCB Routine Lab 03/10/20 01:33 Uncollected Total Iron Bindin g Capacity Routine Lab 03/10/20 03:50 Received Urinalysis and Mi croscopic Routine Lab 03/10/20 07:54 Uncollected Labs from last 24 hours 03/10/20 03/10/20 03/10/20 07:28 03:50 03:50 WBC RBC Hgb Hct MCV MCH MCHC RDW Plt Count MPV Neut % (Auto) Lymph % (Auto) [place] % (Auto) Eos % (Auto) Baso % (Auto) Neut # (Auto) Lymph # (Auto) [place] # (Auto) Eos # (Auto) Baso # (Auto) Nucleated RBC % (a uto) Nucleated RBCs # PT INR Sodium Potassium Chloride Carbon Dioxide Anion Gap BUN Creatinine GFR Calculation Glucose POC Glucose 143 Calculated Osmolal ity Calcium Magnesium Iron Pending TIBC Pending % Saturation Pending Unsat Iron Binding Pending Ferritin Pending Total Bilirubin AST ALT Alkaline Phosphata se Troponin T Baselin e Troponin T 120 Min [place] Delta Troponin T Troponin T Hi Sens 6Hr Troponin T Hi Sens 6Hr Delta Total Protein Albumin Globulin Random Cortisol Pending 03/10/20 03/10/20 03/10/20 03:50 03:50 03:50 WBC 4.4 RBC 2.52 L Hgb 7.9 L Hct 26.3 L MCV 104.4 H MCH 31.3 MCHC 30.0 RDW 12.0 L Plt Count 186 MPV 10.5 H Neut % (Auto) 49.3 Lymph % (Auto) 33.3 [place] % (Auto) 12.4 Eos % (Auto) 4.3 Baso % (Auto) 0.7 Neut # (Auto) 2.18 Lymph # (Auto) 1.5 [place] # (Auto) 0.6 Eos # (Auto) 0.2 Baso # (Auto) 0.0 Nucleated RBC % (a uto) 0 Nucleated RBCs # 0.0 PT INR Sodium 135 L Potassium 5.2 H Chloride 108 H Carbon Dioxide 20 L Anion Gap 12.2 BUN 25 H Creatinine 1.9 H GFR Calculation Not Reportable Glucose 116 H POC Glucose Calculated Osmolal ity 278 L Calcium 8.9 Magnesium 2.1 Iron TIBC % Saturation Unsat Iron Binding Ferritin Total Bilirubin AST ALT Alkaline Phosphata se Troponin T Baselin e Troponin T 120 Min [place] Delta Troponin T Troponin T Hi Sens 6Hr 70.09 H Troponin T Hi Sens 6Hr Delta 2.09 Total Protein Albumin Globulin Random Cortisol 03/10/20 03/09/20 03/09/20 02:18 23:25 21:43 WBC RBC Hgb Hct MCV MCH MCHC RDW Plt Count MPV Neut % (Auto) Lymph % (Auto) [place] % (Auto) Eos % (Auto) Baso % (Auto) Neut # (Auto) Lymph # (Auto) [place] # (Auto) Eos # (Auto) Baso # (Auto) Nucleated RBC % (a uto) Nucleated RBCs # PT INR Sodium Potassium Chloride Carbon Dioxide Anion Gap BUN Creatinine GFR Calculation Glucose POC Glucose 113 Calculated Osmolal ity Calcium Magnesium Iron TIBC % Saturation Unsat Iron Binding Ferritin Total Bilirubin AST ALT Alkaline Phosphata se Troponin T Baselin e 68 H Troponin T 120 Min [place] 68.21 H Delta Troponin T 0.21 Troponin T Hi Sens 6Hr Troponin T Hi Sens 6Hr Delta Total Protein Albumin Globulin Random Cortisol 03/09/20 03/09/20 03/09/20 21:43 21:43 21:43 WBC 5.6 RBC 2.70 L Hgb 8.7 L Hct 28.1 L MCV 104.1 H MCH 32.2 MCHC 31.0 RDW 12.0 L Plt Count 199 MPV 9.8 Neut % (Auto) 59.2 Lymph % (Auto) 27.3 [place] % (Auto) 9.4 Eos % (Auto) 3.0 Baso % (Auto) 0.7 Neut # (Auto) 3.34 Lymph # (Auto) 1.5 [place] # (Auto) 0.5 Eos # (Auto) 0.2 Baso # (Auto) 0.0 Nucleated RBC % (a uto) 0 Nucleated RBCs # 0.0 PT 13.60 H INR 1.01 Sodium 133 L Potassium 5.0 Chloride 104 Carbon Dioxide 19 L Anion Gap 15.0 BUN 25 H Creatinine 1.9 H GFR Calculation Not Reportable Glucose 159 H POC Glucose Calculated Osmolal ity 276 L Calcium 9.0 Magnesium Iron TIBC % Saturation Unsat Iron Binding Ferritin Total Bilirubin 0.2 AST 22 ALT 14 Alkaline Phosphata se 100 Troponin T Baselin e Troponin T 120 Min [place] Delta Troponin T Troponin T Hi Sens 6Hr Troponin T Hi Sens 6Hr Delta Total Protein 6.5 L Albumin 3.8 Globulin 2.7 Random Cortisol Vitals: Last Vital Signs Temp 99.3 F 03/10/20 07:00 Pulse 47 L 03/10/20 07:00 Resp 13 03/10/20 07:00 BP 180/58 03/10/20 07:00 Pulse Ox 97 03/10/20 07:00 Discharge Plan Discharge Patient Disposition: Xfer SNF Condition: Stable Prescriptions: New pantoprazole [Protonix] 40 mg tablet,delayed release (DR/EC) 40 mg PO BID Qty: 60 RF: 0 Continued amlodipine 10 mg Tablet 10 mg PO DAILY RF: 0 acetaminophen 325 mg Tablet 650 mg PO Q6H PRN (Reason: Mild pain) Qty: 120 RF: 0 hydrocodone-acetaminophen 5-325 mg Tablet 1 - 2 tab PO Q4H PRN (Reason: Breakthrough Pain) Qty: 30 RF: 0 insulin aspart U-100 [Novolog U-100 Insulin aspart] 100 unit/mL Solution See Rx Instructions .ROUTE .COMPLEX Qty: 10 RF: 0 Lantus U-100 Insulin 100 unit/mL Solution 8 unit SUBCUT BEDTIME Qty: 10 RF: 0 lorazepam 0.5 mg Tablet 0.5 mg PO BID PRN (Reason: Anxiety) Qty: 30 RF: 0 trazodone 150 mg Tablet 150 mg PO BEDTIME Qty: 30 RF: 0 Miralax 17 gram Powder In Packet 17 g PO DAILY PRN (Reason: unknown) RF: 0 Milk of Magnesia 400 mg/5 mL Suspension 30 ml PO PRN RF: 0 bisacodyl 10 mg Suppository 10 mg OR DAILY PRN (Reason: Constipation) RF: 0 Enema Disposable 19-7 gram/118 mL Enema 118 ml OR DAILY PRN (Reason: Constipation) RF: 0 sennosides-docusate sodium 8.6-50 mg tablet See Rx Instructions .ROUTE .COMPLEX PRN (Reason: unknown) RF: 0 rosuvastatin 40 mg tablet 40 mg PO QPM RF: 0 Discontinued losartan 25 mg Tablet 25 mg PO DAILY RF: 0 omeprazole 20 mg Capsule,Delayed Release(Dr/Ec) 20 mg PO DAILY RF: 0 Discharge Orders: Discharge Order (Routine); Ordered 03/10/20 Ordered By: Mark Anthony Hunt Discharge Diet: Usual diet Discharge Activity: Resume usual activity Activity Restrictions/Additional Instructions: Please do UA with micro, culture if appropriate secondary to diagnosis of frequency, urgency. She did not allow this to be done at the hospital prior to discharge. Note that she is allow natural She refused any kind of intervention at the hospital currently, reporting she only wants to go back to the nursing facility. Power of systems test engineer was informed. Discharge Attestations Time Spent in Discharge Care*: greater than 30 min Status at Discharge: Cognitive status at discharge: other (Grossly cognition is intact today) , Behavioral status at discharge: cooperative , Quality Metrics Clinical Quality Measures During this hospital stay, did patient experience: None Coding Level of Care Code Acute Lithographed Plate Inspector for [facility] Fwd Diagnoses High degree atrioventricular block I44.39 Bradycardia R00.1 Sick sinus syndrome I49.5 Chronic kidney disease (CKD), stage IV (severe) N18.4 Hypertension I15.0 Hypertension type: renovascular hypertension Diabetes E11.22; N18.4; Z79.4 Diabetes mellitus type: type 2 Diabetes mellitus [facility] insulin use: with intermediate teacher use Diabetes mellitus complication status: with kidney complications Diabetes mellitus complication detail: with chronic kidney disease Chronic kidney disease stage: stage 4 (severe) Acute blood loss anemia D62
[2020-03-10 08:57] LABS: Ferritin 51 ng/mL (15-150); Iron 35 ug/dL (37-145); Percent Saturation 16.4 % (20-50); Total Iron Binding Capacity 213 mcg/dl; Unsaturated Iron Binding 178 ug/dL (112-347)
--- NOTE | 2020-03-10 09:14 | PC.NURSE ---
refusing vitals patient pulled off leads, BP cuff, SCDs, refusing them. patient alert and oriented x3, DC orders in. Patient up in chair.
[2020-03-10 09:38] LABS: Cortisol Random 8.43 ug/mL (2.47-19.5)
[2020-03-10] MEDS: LORazepam 0.5 mg Tablet PO (10:33)
[2020-03-10] MEDS: amlodipine 10 mg Tablet PO (11:50)
--- NOTE | 2020-03-10 11:58 | PC.NURSE ---
dicharge patient given discharge instructions, verbal understanding. IVs removed. Patient given amblodipine 10 mg po x1 for increased BP. Called report to siva Koch RN at 1155, including recent medications, verbal understanding.
--- NOTE | 2020-03-10 12:45 | PC.NURSE ---
Patient wheeled to [facility] van by KYLEIGH De La Rosa at 1210. Patient alert and oriented x3.
--- NOTE | 2020-03-11 16:50 | PC.RESP ---
PATIENT DOES NOT HAVE A QUALIFYING HX OF LUNG DISEASE AT THIS TIME AND DOES NOT QUALIFY FOR PULMONARY REHAB.
== END 2020-03-10 12:10 | disposition skilled nursing facility (03) | DRG 309 ==
LOC: ER 21:37 → ICU 03-10 01:34
PROVIDERS: Emergency Medicine; Admitting Provider Internal Medicine; PCP Internal Medicine; Visit Provider Internal Medicine
DX: I44.2 Atrioventricular block, complete (principal); N18.4 Chronic kidney disease, stage 4 (severe); D62 Acute posthemorrhagic anemia; D68.0 Von Willebrand disease; I49.5 Sick sinus syndrome; Z66 Do not resuscitate; I12.9 Hypertensive chronic kidney disease with stage 1 through stage 4 chronic kidney disease, or unspecified chronic kidney disease; E11.22 Type 2 diabetes mellitus with diabetic chronic kidney disease; Z79.4 Long term (current) use of insulin; E87.5 Hyperkalemia; E78.5 Hyperlipidemia, unspecified; K21.9 Gastro-esophageal reflux disease without esophagitis; I20.9 Angina pectoris, unspecified
CPT/HCPCS: 12345; 36415; 36416; 71045; 80048; 80053; 82533; 82728; 82962; 83540; 83550; 83735; 84484; 85025; 85610; 93005; 96372; 99283; J1815

== ENCOUNTER 2020-06-02 13:51 | Emergency (ER) | payer MEDICARE, MEDICAID, SELFPAY ==
--- NOTE | 2020-06-02 13:56 | ED_ITS ---
HPI - General Adult General: Chief complaint: General Medical Stated complaint: CRITICAL SODIUM/ COVID + Time Seen by Provider: 06/02/20 13:52 Source: patient and EMS Mode of arrival: EMS Limitations: no limitations History of Present Illness: HPI narrative: Mrs. Tomas is a 79-year-old female who comes in from the snf for low sodium. Patient has recently tested positive for the Covid virus 6 days ago. Patient denies any cough, sore throat, shortness of breath or any other Covid related symptoms. Patient had outpatient labs drawn yesterday which revealed a sodium of 130 because of that the snf sent her here to be evaluated. The patient has no complaints other than that of chronic pain in her hip since she fractured it on Mother's Day of this year. She denies any other complaints or concerns. 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 [facility] ED PFSH: Medical History Bifascicular block Chronic kidney disease (CKD), stage IV (severe) Degenerative joint disease Diabetes Dyslipidemia GERD (gastroesophageal reflux disease) Hypertension Von Willebrands disease Pt reported, PCP not not have diagnosis in her records Surgical History H/O cardiac catheterization 2009, normal EF nonsignificant irregular coronary artery disease Hx of cholecystectomy S/P cataract surgery Status post open reduction and internal fixation (ORIF) of fracture left hip, 12/2019, Dr Austin Family History Denies family history of CAD (coronary artery disease) Clotting disorder Chronic kidney disease (CKD) Social History Smoking and tobacco status: never smoked Alcohol intake: never Lives independently: Yes Additional social history: Her sister has power of contract attorney named Sujatha Jeovanny Vital Signs: Vital signs: Vital Signs Temperature 98.7 F 06/02/20 14:07 Pulse Rate 97 06/02/20 19:27 Respiratory Rate 16 06/02/20 19:27 Blood Pressure 123/76 06/02/20 19:27 Pulse Oximetry 99 06/02/20 19:27 MDM - General Adult MDM Narrative: Medical decision making narrative: 1627 -the patient has been refusing work-up up to this point. We do have labs pending at this time up to this point everything looks okay. Patient now says she wants to go home and wants to sign out AGAINST MEDICAL ADVICE. Patient appears to be of sound mind with a capacity to understand her decisions and the consequences if she is were all then she is truly sick. She is alert and oriented x3 with no signs of impairment. Patient understands she can return if she wants but at this time she is adamant that she wants to be discharged. I notified Dr. Hunt the patient's alternate physician and I did discuss the case with the patient's DURABLE POWER OF EMERGENCY MEDICAL SERVICE MANAGER for healthcare Sujatha Sandhu as she is aware but at this time the patient is her own guardian and I will abide by her decision. Mrs. Tomas ultimately did let us end up drawing blood but she did not want discussed the results. She declined any further evaluation and treatment and signed out AGAINST MEDICAL ADVICE. The patient clearly had the capacity to make this decision and showed no sign of impairment. She did not ask questions to the effect of what the abnormal labs could do she was somewhat angry and refused to listen to the other medical opinions. Lab Data: Labs: Lab Results 06/02/20 06/02/20 06/02/20 Range/Units 14:28 15:15 15:15 WBC (4.0-10.0) 10^3/ uL RBC (4.1-5.3) 10^6/u L Hgb (11.5-15.3) g/dL Hct (37.0-47.0) % MCV (81-99) fL MCH (28.0-34.0) pg MCHC (30.0-36.0) g/dL RDW (12.1-15.1) % Plt Count (130-400) 10^3/c mm MPV (7.4-10.4) fL Neut % (Auto) % Lymph % (Auto) % [place] % (Auto) % Eos % (Auto) % Baso % (Auto) % Neut # (Auto) (1.8-7.7) 10^3/u L Lymph # (Auto) (0.8-4.8) 10^3/u L [place] # (Auto) (0.2-0.9) 10^3/u L Eos # (Auto) (0.0-0.8) 10^3/u L Baso # (Auto) (0.0-0.1) 10^3/u L Nucleated RBC % (a uto) % Nucleated RBCs # /100WBC PT (12.1-14.9) SECO NDS INR (0.8-1.2) Fibrinogen (174-498) mg/dL Specimen Type Arterial Sample Site Brachial, right ABG pH 7.43 (7.35-7.45) ABG pCO2 29.5 L (35-45) mmHg ABG pO2 92.6 (80.0-100.0) mmH g ABG HCO3 19.3 L (22-26) mmol/L ABG Base Excess -4.1 L (-2.0-2.0) mmol/ L Constantino Test Pos Hematocrit 34.3 L (37-47) % O2 Delivery Device Room air FiO2 21.0 % Moss Picker ID Cak Sodium (136-145) mmol/L Potassium (3.5-5.1) mmol/L Chloride (98-107) mmol/L Carbon Dioxide (22-29) mmol/L Anion Gap (5-19) BUN (8-23) mg/dL Creatinine (0.5-0.9) mg/dL GFR Calculation Glucose (65-115) mg/dL Calculated Osmolal ity (285-295) mOsm/k g Lactic Acid (0.5-2.2) mmol/L Calcium (8.5-10.5) mg/dL Magnesium (1.7-2.3) mg/dL Ferritin (15-150) ng/mL Total Bilirubin (0.15-1.2) mg/dL AST (0-32) U/L ALT (0-33) U/L Alkaline Phosphata se (35-105) IU/L Lactate Dehydrogen ase (135-214) U/L C-Reactive Protein (0.0-4.9) mg/L Total Protein (6.6-8.7) g/dL Albumin (3.5-5.2) g/dL Globulin (1.3-4.6) g/dL Procalcitonin (0-0.5) ng/mL Urine Color Yellow (Yellow) Urine Appearance Clear (CLEAR) Urine pH 5 (5-7) Ur Specific Gravit y 1.010 (1.005-1.030) Urine Protein 3+ H (Negative) Urine Glucose (UA) Norm (Normal) Urine Ketones Negative (Negative) Urine Blood Neg (Negative) Urine Nitrate Negative (Negative) Urine Bilirubin Neg (Negative) Urine Urobilinogen Norm (Negative) mg/dL Ur Leukocyte Dilia ase Negative (Negative) Urine RBC Rare (0-2) /hpf Urine WBC Rare (0-5) /hpf Ur Squamous Epith Cells 0-4 H (0-5) /hpf Amorphous Sediment Not Reportable Urine Bacteria Trace (NONE) /hpf Influenza Type A A g Negative (Negative) Influenza Type B A g Negative (Negative) 06/02/20 06/02/20 06/02/20 Range/Units 15:56 15:56 15:56 WBC 7.1 (4.0-10.0) 10^3/ uL RBC 3.79 L (4.1-5.3) 10^6/u L Hgb 11.4 L (11.5-15.3) g/dL Hct 34.9 L (37.0-47.0) % MCV 92.1 (81-99) fL MCH 30.1 (28.0-34.0) pg MCHC 32.7 (30.0-36.0) g/dL RDW 13.0 (12.1-15.1) % Plt Count 282 (130-400) 10^3/c mm MPV 9.5 (7.4-10.4) fL Neut % (Auto) 54.0 % Lymph % (Auto) 37.9 % [place] % (Auto) 7.4 % Eos % (Auto) 0.0 % Baso % (Auto) 0.1 % Neut # (Auto) 3.82 (1.8-7.7) 10^3/u L Lymph # (Auto) 2.7 (0.8-4.8) 10^3/u L [place] # (Auto) 0.5 (0.2-0.9) 10^3/u L Eos # (Auto) 0.0 (0.0-0.8) 10^3/u L Baso # (Auto) 0.0 (0.0-0.1) 10^3/u L Nucleated RBC % (a uto) 0 % Nucleated RBCs # 0.0 /100WBC PT 12.10 (12.1-14.9) SECO NDS INR 0.87 (0.8-1.2) Fibrinogen 326 (174-498) mg/dL Specimen Type Sample Site ABG pH (7.35-7.45) ABG pCO2 (35-45) mmHg ABG pO2 (80.0-100.0) mmH g ABG HCO3 (22-26) mmol/L ABG Base Excess (-2.0-2.0) mmol/ L Constantino Test Hematocrit (37-47) % O2 Delivery Device FiO2 % Moss Picker ID Sodium 130 L (136-145) mmol/L Potassium 4.5 (3.5-5.1) mmol/L Chloride 94 L (98-107) mmol/L Carbon Dioxide 19 L (22-29) mmol/L Anion Gap 21.5 H (5-19) BUN 39 H (8-23) mg/dL Creatinine 2.1 H (0.5-0.9) mg/dL GFR Calculation Not Reportable Glucose 296 H (65-115) mg/dL Calculated Osmolal ity 290 (285-295) mOsm/k g Lactic Acid (0.5-2.2) mmol/L Calcium 9.0 (8.5-10.5) mg/dL Magnesium 2.1 (1.7-2.3) mg/dL Ferritin 166 H (15-150) ng/mL Total Bilirubin 0.2 (0.15-1.2) mg/dL AST 49 H (0-32) U/L ALT 50 H (0-33) U/L Alkaline Phosphata se 95 (35-105) IU/L Lactate Dehydrogen ase 226 H (135-214) U/L C-Reactive Protein 2.6 (0.0-4.9) mg/L Total Protein 7.3 (6.6-8.7) g/dL Albumin 4.4 (3.5-5.2) g/dL Globulin 2.9 (1.3-4.6) g/dL Procalcitonin 0.22 (0-0.5) ng/mL Urine Color (Yellow) Urine Appearance (CLEAR) Urine pH (5-7) Ur Specific Gravit y (1.005-1.030) Urine Protein (Negative) Urine Glucose (UA) (Normal) Urine Ketones (Negative) Urine Blood (Negative) Urine Nitrate (Negative) Urine Bilirubin (Negative) Urine Urobilinogen (Negative) mg/dL Ur Leukocyte Dilia ase (Negative) Urine RBC (0-2) /hpf Urine WBC (0-5) /hpf Ur Squamous Epith Cells (0-5) /hpf Amorphous Sediment Urine Bacteria (NONE) /hpf Influenza Type A A g (Negative) Influenza Type B A g (Negative) 06/02/20 Range/Units 15:56 WBC (4.0-10.0) 10^3/ uL RBC (4.1-5.3) 10^6/u L Hgb (11.5-15.3) g/dL Hct (37.0-47.0) % MCV (81-99) fL MCH (28.0-34.0) pg MCHC (30.0-36.0) g/dL RDW (12.1-15.1) % Plt Count (130-400) 10^3/c mm MPV (7.4-10.4) fL Neut % (Auto) % Lymph % (Auto) % [place] % (Auto) % Eos % (Auto) % Baso % (Auto) % Neut # (Auto) (1.8-7.7) 10^3/u L Lymph # (Auto) (0.8-4.8) 10^3/u L [place] # (Auto) (0.2-0.9) 10^3/u L Eos # (Auto) (0.0-0.8) 10^3/u L Baso # (Auto) (0.0-0.1) 10^3/u L Nucleated RBC % (a uto) % Nucleated RBCs # /100WBC PT (12.1-14.9) SECO NDS INR (0.8-1.2) Fibrinogen (174-498) mg/dL Specimen Type Sample Site ABG pH (7.35-7.45) ABG pCO2 (35-45) mmHg ABG pO2 (80.0-100.0) mmH g ABG HCO3 (22-26) mmol/L ABG Base Excess (-2.0-2.0) mmol/ L Constantino Test Hematocrit (37-47) % O2 Delivery Device FiO2 % Moss Picker ID Sodium (136-145) mmol/L Potassium (3.5-5.1) mmol/L Chloride (98-107) mmol/L Carbon Dioxide (22-29) mmol/L Anion Gap (5-19) BUN (8-23) mg/dL Creatinine (0.5-0.9) mg/dL GFR Calculation Glucose (65-115) mg/dL Calculated Osmolal ity (285-295) mOsm/k g Lactic Acid 3.7 H (0.5-2.2) mmol/L Calcium (8.5-10.5) mg/dL Magnesium (1.7-2.3) mg/dL Ferritin (15-150) ng/mL Total Bilirubin (0.15-1.2) mg/dL AST (0-32) U/L ALT (0-33) U/L Alkaline Phosphata se (35-105) IU/L Lactate Dehydrogen ase (135-214) U/L C-Reactive Protein (0.0-4.9) mg/L Total Protein (6.6-8.7) g/dL Albumin (3.5-5.2) g/dL Globulin (1.3-4.6) g/dL Procalcitonin (0-0.5) ng/mL Urine Color (Yellow) Urine Appearance (CLEAR) Urine pH (5-7) Ur Specific Gravit y (1.005-1.030) Urine Protein (Negative) Urine Glucose (UA) (Normal) Urine Ketones (Negative) Urine Blood (Negative) Urine Nitrate (Negative) Urine Bilirubin (Negative) Urine Urobilinogen (Negative) mg/dL Ur Leukocyte Dilia ase (Negative) Urine RBC (0-2) /hpf Urine WBC (0-5) /hpf Ur Squamous Epith Cells (0-5) /hpf Amorphous Sediment Urine Bacteria (NONE) /hpf Influenza Type A A g (Negative) Influenza Type B A g (Negative) Imaging Data^: CXR: Attestation: I personally reviewed and interpreted this imaging study as follows: My impression: No acute cardiopulmonary findings. Discharge Plan Discharge Patient Disposition: Left Against Medical Advice Clinical Impression: Chronic hyponatremia Condition: Stable Prescriptions: No Action amlodipine 10 mg Tablet 10 mg PO DAILY RF: 0 acetaminophen 325 mg Tablet 650 mg PO Q6H PRN (Reason: Mild pain) Qty: 120 RF: 0 hydrocodone-acetaminophen 5-325 mg Tablet 1 - 2 tab PO Q4H PRN (Reason: Breakthrough Pain) Qty: 30 RF: 0 insulin aspart U-100 [Novolog U-100 Insulin aspart] 100 unit/mL Solution See Rx Instructions .ROUTE .COMPLEX Qty: 10 RF: 0 Lantus U-100 Insulin 100 unit/mL Solution 8 unit SUBCUT BEDTIME Qty: 10 RF: 0 lorazepam 0.5 mg Tablet 0.5 mg PO BID PRN (Reason: Anxiety) Qty: 30 RF: 0 trazodone 150 mg Tablet 150 mg PO BEDTIME Qty: 30 RF: 0 Miralax 17 gram Powder In Packet 17 g PO DAILY PRN (Reason: unknown) RF: 0 Milk of Magnesia 400 mg/5 mL Suspension 30 ml PO PRN RF: 0 bisacodyl 10 mg Suppository 10 mg IN DAILY PRN (Reason: Constipation) RF: 0 Enema Disposable 19-7 gram/118 mL Enema 118 ml IN DAILY PRN (Reason: Constipation) RF: 0 sennosides-docusate sodium 8.6-50 mg tablet See Rx Instructions .ROUTE .COMPLEX PRN (Reason: unknown) RF: 0 rosuvastatin 40 mg tablet 40 mg PO QPM RF: 0 Protonix 40 mg tablet,delayed release (DR/EC) 40 mg PO BID Qty: 60 RF: 0 Discharge Orders: Discharge Order (Routine); Ordered 06/02/20 Ordered By: Ame Persaud Referrals: Hardy Saab DO [Primary Care Provider] - 1-3 days Discharge Diet: Advance as tolerated Discharge Activity: Increase activity as tolerated Patient Instructions: Hyponatremia (ED) Activity Restrictions/Additional Instructions: You're leaving AGAINST MEDICAL ADVICE and are at risk for or severe permanent disability by doing so. You are more than welcome to return at any time for recheck and for further evaluation and care suture change you change your mind. Stand Alone Forms: Against Medical Advice Discharge Date/Time: 06/02/20 20:15 Coding Level of Care Code ED Freight Air Brake Fitter for Camilla Solis
[2020-06-02 14:00] VITALS: BMI 25.4
--- NOTE | 2020-06-02 14:04 | XR_ITS ---
WS: [id number] Portable AP upright chest, 06/02/2020 Clinical Data: Weakness Comparison: Mobile chest, 03/09/2020. Findings: No nodules, masses or effusions are seen. The heart is normal. The pulmonary vascularity is not increased. No pneumonia or pneumothorax is seen. The aortic arch and descending aorta show tortu osity. There is absence of the lateral third of the right clavicle. XR/XR chest 1V portable [id number] Impression: Atherosclerosis.
[2020-06-02 14:07] VITALS: BP 182/95; PULSE 70; RESP 18; TEMP 37.1; O2SAT 98
[2020-06-02] MEDS: HYDROcodone-acetaminophen 5-325 mg Tablet 1 TAB PO (14:20)
[2020-06-02 14:39] LABS: ABG PCO2 29.5 mmHg (35-45); ABG PH Result 7.43 (7.35-7.45); Arterial Blood Gas Hematocrit 34.3 % (37-47); Base Excess ABG -4.1 mmol/L (-2.0-2.0); Blood Gas Allen Test Pos; Blood Gas Operator Identificat CAK; Blood Gas Sample Site Brachial, right; Blood Gas Sample Type Arterial; HCO3 ABG 19.3 mmol/L (22-26); Oxygen Device ROOM AIR; PO2 ABG 92.6 mmHg (80.0-100.0)
--- NOTE | 2020-06-02 15:13 | PC.NURSE ---
pt refuses IV. Pt refuses to wear monitoring devices. ED physician notified.
[2020-06-02 16:10] LABS: Add Urine Microscopic? YES; Bilirubin Urine Neg (Negative); Blood Urine Neg (Negative); Glucose Urine UA Norm (Normal); Influenza A by IFA Negative (Negative); Influenza B by IFA Negative (Negative); Ketones Urine Negative (Negative); Leukocyte Esterase Urine Negative (Negative); Nitrate Urine Negative (Negative); Protein Urine 3+ (Negative); Urine Appearance Clear (CLEAR); Urine Color Yellow (Yellow); Urobilinogen Urine Norm (Negative); pH Urine 5 (5-7)
[2020-06-02 16:11] LABS: Add Urine Culture? No; Bacteria Urine TRACE /hpf; RBC Urine RARE /hpf (0-2); Squamous Epithelial Cell Urine 0-4 /hpf (0-5); WBC Urine RARE /hpf (0-5)
[2020-06-02 16:12] LABS: Basophils % 0.1 %; Hematocrit 34.9 % (37.0-47.0); Hemoglobin 11.4 g/dL (11.5-15.3); Lymphocytes # 2.7 10^3/uL (0.8-4.8); Lymphocytes % 37.9 %; Mean Corpuscular HGB Conc 32.7 g/dL (30.0-36.0); Mean Corpuscular Hemoglobin 30.1 pg (28.0-34.0); Mean Corpuscular Volume 92.1 fL (81-99); Mean Platelet Volume 9.5 fL (7.4-10.4); Monocytes # 0.5 10^3/uL (0.2-0.9); Monocytes % 7.4 %; Neutrophils # 3.82 10^3/uL (1.8-7.7); Nucleated Red Blood Cells % 0 %; Platelet Count 282 10^3/cmm (130-400); Red Blood Count 3.79 10^6/uL (4.1-5.3); White Blood Count 7.1 10^3/uL (4.0-10.0)
[2020-06-02 16:35] LABS: INR 0.87 (0.8-1.2)
[2020-06-02 16:36] LABS: Fibrinogen 326 mg/dL (174-498)
[2020-06-02 16:38] LABS: Lactic Sepsis W/Reflex 3.7 mmol/L (0.5-2.2)
[2020-06-02 16:54] LABS: Procalcitonin 0.22 ng/mL (0-0.5)
[2020-06-02 17:12] LABS: Alanine Aminotransferase 50 U/L (0-33); Albumin Level 4.4 g/dL (3.5-5.2); Alkaline Phosphatase 95 IU/L (35-105); Anion Gap 21.5 (5-19); Aspartate Amino Transferase 49 U/L (0-32); Blood Urea Nitrogen 39 mg/dL (8-23); C Reactive Protein 2.6 mg/L (0.0-4.9); Carbon Dioxide 19 mmol/L (22-29); Chloride 94 mmol/L (98-107); Globulin 2.9 g/dL (1.3-4.6); Glucose 296 mg/dL (65-115); Lactate Dehydrogenase 226 U/L (135-214); Magnesium 2.1 mg/dL (1.7-2.3); Osmolality Calculated 290 mOsm/kg (285-295); Potassium 4.5 mmol/L (3.5-5.1); Sodium 130 mmol/L (136-145); Total Bilirubin 0.2 mg/dL (0.15-1.2); Total Protein 7.3 g/dL (6.6-8.7)
--- NOTE | 2020-06-02 17:45 | PC.NURSE ---
pt given pudding and ice cream. pt updated on plan of care as to what time her ride should be here. pt unpleasant in her mannerisms towards nurse. will continue to monitor.
[2020-06-02 17:55] LABS: Reflex Lactate Order REFLEX LACTIC ORDERD
[2020-06-02 18:55] LABS: Ferritin 166 ng/mL (15-150)
[2020-06-02 19:27] VITALS: BP 123/76; PULSE 97; RESP 16; O2SAT 99
== END 2020-06-02 20:15 | disposition left against medical advice (07) ==
PROVIDERS: Emergency Provider Emergency Medicine; PCP Internal Medicine
DX: E87.1 Hypo-osmolality and hyponatremia (principal); Z53.21 Procedure and treatment not carried out due to patient leaving prior to being seen by health care provider; Z79.4 Long term (current) use of insulin; I12.9 Hypertensive chronic kidney disease with stage 1 through stage 4 chronic kidney disease, or unspecified chronic kidney disease; E11.22 Type 2 diabetes mellitus with diabetic chronic kidney disease; N18.4 Chronic kidney disease, stage 4 (severe); E78.5 Hyperlipidemia, unspecified; D68.0 Von Willebrand disease
CPT/HCPCS: 12345; 36415; 36600; 71045; 80053; 81001; 82728; 82803; 83605; 83615; 83735; 84145; 85025; 85384; 85610; 86140; 87804; 99282; 99283

== ENCOUNTER 2020-12-16 18:41 | Emergency (ER) | payer MEDICARE, MEDICAID, SELFPAY ==
--- NOTE | 2020-12-16 18:44 | ECG_ITS ---
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1940 Requested By: Robert Hill Order Number: [id number] Tapan MD: DOUG LANDRUM Measurements Intervals [place] Rate: 63 P: 56 VT: 212 QRS: -59 QRSD: 130 T: 30 QT: 458 QTc: 469 Interpretive Statements SINUS RHYTHM WITH FIRST DEGREE AV BLOCK RIGHT BUNDLE BRANCH BLOCK [120+ ms QRS DURATION, UPRIGHT V1, 40+ ms S IN I/aVL/V4/V5/V6] LEFT ANTERIOR FASCICULAR BLOCK [QRS AXIS <= -45, QR IN I, RS IN II] MINIMAL VOLTAGE CRITERIA FOR LVH, CONSIDER NORMAL VARIANT [MEETS CRITERIA IN ONE OF: R(aVL), S(V1), R(V5), R(V5/V6)+S(V1)] Compared to ECG 03/10/2020 04:39:32 First degree AV block now present Sinus bradycardia no longer present Electronically Signed On 12-18-2020 22:26:22 CDT by DOUG LANDRUM [id number]
--- NOTE | 2020-12-16 18:44 | XRR_ITS ---
PROCEDURE INFORMATION: Exam: XR Chest Exam date and time: 12/16/2020 7:00 PM Age: 79 years old Clinical indication: Chest pain; Additional info: Cp TECHNIQUE: Imaging protocol: XR of the chest. Views: 1 view. Total images: 1 COMPARISON: CR XR chest 1V portable [id number] 06/02/2020 2:38 PM FINDINGS: Lungs: No visible active interstitial or alveolar airspace disease. Pleural spaces: Unremarkable. No pleural effusion. No pneumothorax. Heart/Mediastinum: Cardiac structures and configuration with arteriosclerosis. Bones/joints: Distal right clavicle osteotomy/resection. XR/XR chest 1V portable [id number] IMPRESSION: Nonacute.
[2020-12-16 18:45] VITALS: BP 214/70; PULSE 62; RESP 13; TEMP 36.7; O2SAT 98; BMI 29.7
[2020-12-16 19:23] LABS: Basophils % 0.6 %; Eosinophils # 0.1 10^3/uL (0.0-0.8); Eosinophils % 1.9 %; Hematocrit 31.1 % (37.0-47.0); Hemoglobin 9.7 g/dL (11.5-15.3); Lymphocytes # 1.5 10^3/uL (0.8-4.8); Lymphocytes % 21.6 %; Mean Corpuscular HGB Conc 31.2 g/dL (30.0-36.0); Mean Corpuscular Hemoglobin 31.2 pg (28.0-34.0); Mean Platelet Volume 9.7 fL (7.4-10.4); Monocytes # 0.4 10^3/uL (0.2-0.9); Monocytes % 6.2 %; Neutrophils % 69.6 %; Nucleated Red Blood Cells % 0 %; Platelet Count 194 10^3/cmm (130-400); Red Blood Count 3.11 10^6/uL (4.1-5.3); Red Cell Distribution Width 13.2 % (12.1-15.1); White Blood Count 6.9 10^3/uL (4.0-10.0)
[2020-12-16 19:41] LABS: Troponin(5th) Baseline 49 ng/L (0-10)
[2020-12-16 19:47] LABS: Partial Thromboplastin Time 26.7 SECONDS (23.9-36.7)
[2020-12-16 19:50] LABS: Anion Gap 13.3 (5-19); Blood Urea Nitrogen 32 mg/dL (8-23); Carbon Dioxide 17 mmol/L (22-29); Chloride 108 mmol/L (98-107); Potassium 6.3 mmol/L (3.5-5.1); Sodium 132 mmol/L (136-145)
[2020-12-16 19:51] LABS: Alanine Aminotransferase 17 U/L (0-33); Albumin Level 3.6 g/dL (3.5-5.2); Alkaline Phosphatase 83 IU/L (35-105); Aspartate Amino Transferase 24 U/L (0-32); Calcium 8.2 mg/dL (8.5-10.5); Creatine Phosphokinase 107 U/L (26-192); Globulin 2.6 g/dL (1.3-4.6); Glucose 195 mg/dL (65-115); NT Pro B Type Natriuretic Pept 1199 pg/mL (0-450); Osmolality Calculated 286 mOsm/kg (285-295); Total Bilirubin 0.2 mg/dL (0.15-1.2); Total Protein 6.2 g/dL (6.6-8.7)
[2020-12-16] MEDS: ondansetron 4 MG Tablet PO (21:10)
[2020-12-16] MEDS: cloNIDine 0.1 mg Tablet 0.2 MG PO (21:11)
[2020-12-16 21:17] VITALS: BP 201/84; PULSE 88; RESP 16; O2SAT 96
--- NOTE | 2020-12-17 04:51 | ED_ITS ---
HPI - Chest Pain General: Chief Complaint: Chest Pain Stated Complaint: CHEST PAIN, vagal response after NTG Time Seen by Provider: 12/16/20 18:44 History of Present Illness: HPI narrative: 79-year-old female patient who tells me she has a history of von Willebrand's disease. He is also has a history of sick sinus syndrome. She had chest discomfort in the long term, and was given a nitroglycerin. She became diaphoretic, and collapsed in her bathroom. There was no prolonged downtime. Her chest pain is since resolved. She is back to baseline now. She is a DNR patient. She is refusing IV access, and asking to go back to the long term. MD complaint: chest pain Pertinent past history: coronary artery disease and other Onset (ago): minute(s) Timing of current episode: episodic Prior episodes: Yes Onset: during rest Pain location: substernal and left chest Pain radiation: none Severity: moderate Quality: aching Relieving factors: nothing Exacerbating factors: nothing Associated symptoms: Reports nausea and sense of impending doom; Deny abdominal pain, dyspnea, fever(s), palpitations or vomiting Treatment prior to arrival: nitroglycerin Review of Systems 2 Const: Denies: fever(s) or chills Eyes: Denies: change in vision ENMT: Denies: odynophagia Card: Reports: chest pain, edema and dyspnea on exertion; Denies: palpitations or irregular heart rhythm Resp: Denies: dyspnea, productive cough, non-productive cough or wheezing GI: Reports: nausea; Denies: abdominal pain or vomiting : Denies: dysuria or hematuria Musc: Reports: back pain; Denies: neck pain Skin/Breast: Denies: rash, pruritus or erythema Neuro: Denies: headache(s), dizziness, vertigo, confusion or seizure-like activity Psych: Denies: anxiety PFSH ED PFSH: Medical History (Updated 12/16/20 @ 20:57 by Robert Alfonso DO) Bifascicular block Chronic kidney disease (CKD), stage IV (severe) Degenerative joint disease Diabetes Dyslipidemia GERD (gastroesophageal reflux disease) Hypertension Von Willebrands disease Pt reported, PCP not not have diagnosis in her records Surgical History H/O cardiac catheterization 2009, normal EF nonsignificant irregular coronary artery disease Hx of cholecystectomy S/P cataract surgery Status post open reduction and internal fixation (ORIF) of fracture left hip, 12/2019, Dr Austin Family History Denies family history of CAD (coronary artery disease) Clotting disorder Chronic kidney disease (CKD) Social History Smoking and tobacco status: never smoked Alcohol intake: never Lives independently: Yes Additional social history: Her sister has power of estate planning attorney named Sujatha Physical Exam Const: GENERAL APPEARANCE: well developed ORIENTATION/CONSCIOUSNESS: Yes oriented to person, Yes oriented to place and Yes oriented to time HENMT: COMMON NORMALS: normocephalic, external ears normal and Normal external nose present HEAD & SCALP: normocephalic FACE & SINUS: normal facial exam NOSE: Normal external nose present and No nasal discharge present EXTERNAL EAR: Yes external ears normal Eye: COMMON NORMALS: Equal, round and reactive pupils present, EOMs intact bilaterally and conjunctivae normal EYELID: eyelids normal CONJUNCTIVA: Yes conjunctivae normal PUPIL: Yes Equal, round and reactive pupils present Neck/C-Spine: GENERAL: No tracheal deviation Chest: COMMONS NORMALS: normal inspection of the chest CHEST: No tenderness Resp: COMMON NORMALS: clear to auscultation bilaterally EFFORT & INSPECTION: No tachypneic, No respiratory distress, No retractions, No uses accessory muscles and No tracheal deviation AUSCULTATION: clear to ausculta tion bilaterally, no rhonchi, no wheezes and lung sounds not diminished Cardio: COMMON NORMALS: regular rate and regular rhythm RATE: regular rate RHYTHM: regular rhythm HEART SOUNDS: no murmurs PERIPHERAL PULSES: radial pulses present GI: INSPECTION: No abdominal distension AUSCULTATION: No Hyperactive bowel sounds present and No Hypoactive bowel sounds present PALPATION: No Guarding due to palpation present (GI) and No Rigid due to palpation PERCUSSION: no dullness to percussion and no tympanic to percussion Extremity: NARRATIVE EXTREMITY EXAM: 1+ edema bilaterally Neuro: SENSORIUM/ORIENTATION: Yes oriented to person, Yes oriented to place and Yes oriented to time Psych: COMMON NORMALS: mental status grossly normal Skin: COMMON NORMALS: no rashes or lesions noted GENERAL SKIN EXAM: no rashes or lesions noted Course Vital Signs: Vital signs: Vital Signs Temperature 98.1 F 12/16/20 18:45 Pulse Rate 88 12/16/20 21:17 Respiratory Rate 16 12/16/20 21:17 Blood Pressure 201/84 12/16/20 21:17 Pulse Oximetry 96 12/16/20 21:17 MDM - Chest Pain MDM Narrative: Medical decision making narrative: 79-year-old female DNR long term patient with resolved chest pain. She is asking to go back to the long term. She is refusing IV access. Blood is drawn, and shows a hemoglobin of 9.7. White blood cell count is 6.9. Her first troponin is elevated. Her creatinine is 2.1 which is her baseline. Bicarbonate level 17. Her potassium is 6.3. The patient was told that further investigation needed to happen, that I was concerned about her potassium, and that she likely needed to stay in the hospital. She said very frankly that she was not going to be admitted to the hospital and that she wanted to go home back to [place] . This patient is alert, oriented to person place time and situation. She understands the gravity of her illness, and that the risks include she chose to leave anyway. She signed a form leaving AGAINST MEDICAL ADVICE. Despite this, we will give her a dose of Kayexalate for the hyperkalemia, and treat her blood pressure which is quite high. Lab Data: Labs: Lab Results 12/16/20 12/16/20 12/16/20 Range/Units 19:10 19:10 19:10 WBC 6.9 (4.0-10.0) 10^3/ uL RBC 3.11 L (4.1-5.3) 10^6/u L Hgb 9.7 L (11.5-15.3) g/dL Hct 31.1 L (37.0-47.0) % MCV 100.0 H (81-99) fL MCH 31.2 (28.0-34.0) pg MCHC 31.2 (30.0-36.0) g/dL RDW 13.2 (12.1-15.1) % Plt Count 194 (130-400) 10^3/c mm MPV 9.7 (7.4-10.4) fL Neut % (Auto) 69.6 % Lymph % (Auto) 21.6 % [place] % (Auto) 6.2 % Eos % (Auto) 1.9 % Baso % (Auto) 0.6 % Neut # (Auto) 4.80 (1.8-7.7) 10^3/u L Lymph # (Auto) 1.5 (0.8-4.8) 10^3/u L [place] # (Auto) 0.4 (0.2-0.9) 10^3/u L Eos # (Auto) 0.1 (0.0-0.8) 10^3/u L Baso # (Auto) 0.0 (0.0-0.1) 10^3/u L Nucleated RBC % (a uto) 0 % Nucleated RBCs # 0.0 /100WBC PT (12.1-14.9) SECO NDS INR (0.8-1.2) APTT (23.9-36.7) SECO NDS Sodium 132 L (136-145) mmol/L Potassium 6.3 H (3.5-5.1) mmol/L Chloride 108 H (98-107) mmol/L Carbon Dioxide 17 L (22-29) mmol/L Anion Gap 13.3 (5-19) BUN 32 H (8-23) mg/dL Creatinine 2.1 H (0.5-0.9) mg/dL GFR Calculation Not Reportable Glucose 195 H (65-115) mg/dL Calculated Osmolal ity 286 (285-295) mOsm/k g Calcium 8.2 L (8.5-10.5) mg/dL Total Bilirubin 0.2 (0.15-1.2) mg/dL AST 24 (0-32) U/L ALT 17 (0-33) U/L Alkaline Phosphata se 83 (35-105) IU/L Creatine Kinase 107 (26-192) U/L Troponin T Baselin e 49 H (0-10) ng/L NT-Pro-B Natriuret Pep 1199 H (0-450) pg/mL Total Protein 6.2 L (6.6-8.7) g/dL Albumin 3.6 (3.5-5.2) g/dL Globulin 2.6 (1.3-4.6) g/dL 12/16/20 Range/Units 19:33 WBC (4.0-10.0) 10^3/ uL RBC (4.1-5.3) 10^6/u L Hgb (11.5-15.3) g/dL Hct (37.0-47.0) % MCV (81-99) fL MCH (28.0-34.0) pg MCHC (30.0-36.0) g/dL RDW (12.1-15.1) % Plt Count (130-400) 10^3/c mm MPV (7.4-10.4) fL Neut % (Auto) % Lymph % (Auto) % [place] % (Auto) % Eos % (Auto) % Baso % (Auto) % Neut # (Auto) (1.8-7.7) 10^3/u L Lymph # (Auto) (0.8-4.8) 10^3/u L [place] # (Auto) (0.2-0.9) 10^3/u L Eos # (Auto) (0.0-0.8) 10^3/u L Baso # (Auto) (0.0-0.1) 10^3/u L Nucleated RBC % (a uto) % Nucleated RBCs # /100WBC PT 13.50 (12.1-14.9) SECO NDS INR 1.00 (0.8-1.2) APTT 26.7 (23.9-36.7) SECO NDS Sodium (136-145) mmol/L Potassium (3.5-5.1) mmol/L Chloride (98-107) mmol/L Carbon Dioxide (22-29) mmol/L Anion Gap (5-19) BUN (8-23) mg/dL Creatinine (0.5-0.9) mg/dL GFR Calculation Glucose (65-115) mg/dL Calculated Osmolal ity (285-295) mOsm/k g Calcium (8.5-10.5) mg/dL Total Bilirubin (0.15-1.2) mg/dL AST (0-32) U/L ALT (0-33) U/L Alkaline Phosphata se (35-105) IU/L Creatine Kinase (26-192) U/L Troponin T Baselin e (0-10) ng/L NT-Pro-B Natriuret Pep (0-450) pg/mL Total Protein (6.6-8.7) g/dL Albumin (3.5-5.2) g/dL Globulin (1.3-4.6) g/dL Discharge Plan Discharge Patient Disposition: Left Against Medical Advice Clinical Impression: Sick sinus syndrome Hypertension Qualifiers: Hypertension type: essential hypertension Qualified Code(s): I10 - Essential (primary) hypertension Chest pain Qualifiers: Chest pain type: unspecified Qualified Code(s): R07.9 - Chest pain, unspecified Condition: Stable Prescriptions: New amlodipine 10 mg tablet 10 mg PO DAILY Qty: 30 RF: 0 No Action hydrocodone-acetaminophen 5-325 mg Tablet 1 - 2 tab PO Q4H PRN (Reason: Breakthrough Pain) Qty: 30 RF: 0 insulin aspart U-100 [Novolog U-100 Insulin aspart] 100 unit/mL Solution See Rx Instructions .ROUTE .COMPLEX Qty: 10 RF: 0 lorazepam 0.5 mg Tablet 0.5 mg PO BID PRN (Reason: Anxiety) Qty: 30 RF: 0 polyethylene glycol 3350 [Miralax] 17 gram Powder In Packet 17 g PO DAILY PRN (Reason: unknown) RF: 0 magnesium hydroxide [Milk of Magnesia] 400 mg/5 mL Suspension 30 ml PO PRN RF: 0 bisacodyl 10 mg Suppository 10 mg VA DAILY PRN (Reason: Constipation) RF: 0 Enema Disposable 19-7 gram/118 mL Enema 118 ml VA DAILY PRN (Reason: Constipation) RF: 0 sennosides-docusate sodium 8.6-50 mg tablet 1 tab PO BID@0800,1999 PRN (Reason: unknown) RF: 0 rosuvastatin 40 mg tablet 40 mg PO BEDTIME@1999 RF: 0 Zofran 4 mg Tablet 4 mg PO Q4H PRN (Reason: NAUSEA/VOMITING) RF: 0 Nicolasa 180 mg Tablet 180 mg PO DAILY@0800 RF: 0 nitroglycerin 0.4 mg Tablet, Sublingual 0.4 mg SUBLINGUAL Q5M PRN (Reason: Chest Pain) RF: 0 sertraline 25 mg Tablet 25 mg PO DAILY@1999 RF: 0 lisinopril 40 mg Tablet 40 mg PO DAILY@0800 RF: 0 Voltaren 1 % Gel See Rx Instructions .ROUTE .COMPLEX RF: 0 Lantus U-100 Insulin 100 unit/mL solution 20 unit SUBCUT BEDTIME RF: 0 trazodone 150 mg tablet 150 mg PO BEDTIME@1999 RF: 0 Referrals: Hardy Saab DO [Primary Care Provider] - 1-3 days Discharge Diet: Usual diet Discharge Activity: Increase activity as tolerated Patient Instructions: Chest Pain (ED), Hyperkalemia (ED) Activity Restrictions/Additional Instructions: You have chosen to go home. Return if you wish to be further evaluated. Coding Level of Care Code ED Bank Worker for Chg Fwd Exam Comprehensive
== END 2020-12-16 21:30 | disposition left against medical advice (07) ==
PROVIDERS: Emergency Provider Emergency Medicine; PCP Internal Medicine
DX: R07.9 Chest pain, unspecified (principal); I10 Essential (primary) hypertension; I49.5 Sick sinus syndrome; Z53.21 Procedure and treatment not carried out due to patient leaving prior to being seen by health care provider; Z79.4 Long term (current) use of insulin; I12.9 Hypertensive chronic kidney disease with stage 1 through stage 4 chronic kidney disease, or unspecified chronic kidney disease; E11.22 Type 2 diabetes mellitus with diabetic chronic kidney disease; N18.4 Chronic kidney disease, stage 4 (severe); E78.5 Hyperlipidemia, unspecified; D68.0 Von Willebrand disease
CPT/HCPCS: 71045; 80053; 82550; 83880; 84484; 85025; 85610; 85730; 93005; 99283; Q0162

== ENCOUNTER 2020-12-19 18:34 | Emergency (ER) | payer MEDICARE, MEDICAID, SELFPAY ==
[2020-12-19 19:01] VITALS: BP 195/79; PULSE 64; RESP 18; TEMP 36.9; O2SAT 98; BMI 29.2
--- NOTE | 2020-12-19 20:06 | XRR_ITS ---
PROCEDURE INFORMATION: Exam: XR Chest Exam date and time: 12/19/2020 9:24 PM Age: 79 years old Clinical indication: Chest pain; Additional info: Cp TECHNIQUE: Imaging protocol: XR of the chest. Views: 1 view. COMPARISON: CR XR chest 1V portable [id number] 12/16/2020 6:48 PM FINDINGS: Lungs: The lungs are clear bilaterally. Pulmonary vasculature within normal limits. Pleural space: No visible pneumothorax or pleural effusion. Heart/Mediastinum: Cardiomediastinal silhouette contour within normal limits. Bones/joints: No emergent findings identified. XR/XR chest 1V portable [id number] IMPRESSION: 1. No radiographic findings of acute cardiopulmonary disease.
--- NOTE | 2020-12-19 20:07 | ECG_ITS ---
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 Measurements Intervals [place] Rate: 68 P: 5 NH: 194 QRS: -57 QRSD: 123 T: 21 QT: 435 QTc: 466 Interpretive Statements SINUS RHYTHM RIGHT BUNDLE BRANCH BLOCK [120+ ms QRS DURATION, UPRIGHT V1, 40+ ms S IN I/aVL/V4/V5/V6] LEFT ANTERIOR FASCICULAR BLOCK [QRS AXIS <= -45, QR IN I, RS IN II] MINIMAL VOLTAGE CRITERIA FOR LVH, CONSIDER NORMAL VARIANT [MEETS CRITERIA IN ONE OF: R(aVL), S(V1), R(V5), R(V5/V6)+S(V1)] POSSIBLE SEPTAL MYOCARDIAL INFARCTION [30 ms Q WAVE IN V1/V2], PROBABLY OLD Compared to ECG 12/16/2020 18:50:46 Myocardial infarct finding now present First degree AV block no longer present Electronically Signed On 12-21-2020 8:01:00 CDT by Raymond Wright M.D. [id number]
--- NOTE | 2020-12-19 20:30 | ED_ITS ---
HPI - Chest Pain General: Chief Complaint: Chest Pain Stated Complaint: DIZZY Time Seen by Provider: 12/19/20 19:52 History of Present Illness: HPI narrative: 79-year-old female returns with chest pain. She was seen 10/18/2019 with chest pain. It had resolved and she subsequently demanded to go home. Patient was noted to have an elevated potassium but she did not want to be treated. So she left AMA. At this time the patient points to her left chest as the location of the pain. She states when she has the pain it goes down into her left elbow. She states her blood pressures were running high. She states it was 241/90 at the detention. She states she has had this pain off/on for the past 2-3 months. She denies any ear pain, runny nose or sore throat. She denies any blurry vision. She states she does feel somewhat short of breath when she has the pain. She denies any history of lung disease. She denies a cough. She denies any pain or burning with urination. She had a loose stool today. She states she feels somewhat nauseous. She states she has not had any new swelling of the legs but states that her leg has been more swollen since she fractured her hip. Patient also states she has been having some dizziness. She states that the room goes around and around when she has these episodes. She states she is not having the episode at this time. MD complaint: chest pain Pertinent past history: prior SD (Patient states she had a heart attack in [place] in 1970.) Onset (ago): month(s) (2-3 months) Timing of current episode: episodic Prior episodes: Yes Onset: during rest Pain location: left chest Pain radiation: left arm (To her left elbow.) Severity: similar to previous episodes Quality: sharp Relieving factors: nothing Exacerbating factors: palpation Associated symptoms: Reports dyspnea, nausea and other (Patient states the room goes around); Deny abdominal pain, diaphoresis, fever(s), leg edema, palpitations, sense of impending doom, syncope or vomiting Treatment prior to arrival: none Review of Systems General: Reports: 10 or more systems reviewed and unremarkable except in HPI and below Narrative: 79-year-old female returns with chest pain. Const: Denies: fever(s), chills, body aches, change in appetite, fatigue, night sweats or diaphoresis Eyes: Denies: blurry vision (Patient states she does need new glasses though.) ENMT: Denies: throat pain, ear or mastoid pain or nasal discharge Card: Reports: chest pain (Current chief complaint.); Denies: palpitations or syncope Resp: Reports: dyspnea GI: Reports: nausea; Denies: abdominal pain or vomiting : Denies: flank pain, difficulty voiding, dysuria or urinary frequency Musc: Denies: neck pain, back pain, extremity pain or extremity swelling Neuro: Reports: dizziness; Denies: headache(s), numbness in extremities, weakness in extremities, lack of coordination, difficulty walking, frequent falls, behavioral changes or Slurred speech present Psych: Denies: anxiety or depression PFSH ED PFSH: Medical History (Updated 12/19/20 @ 22:45 by Henri Parra) Bifascicular block Chronic kidney disease (CKD), stage IV (severe) Degenerative joint disease Diabetes Dyslipidemia GERD (gastroesophageal reflux disease) Hypertension Von Willebrands disease Pt reported, PCP not not have diagnosis in her records Surgical History H/O cardiac catheterization 2009, normal EF nonsignificant irregular coronary artery disease Hx of cholecystectomy S/P cataract surgery Status post open reduction and internal fixation (ORIF) of fracture left hip, 12/2019, Dr Austin Family History Denies family history of CAD (coronary artery disease) Clotting disorder Chronic kidney disease (CKD) Social History Smoking and tobacco status: never smoked Alcohol intake: never Lives independently: Yes Additional social history: Her sister has power of ip technology transactions attorney named Sujatha Physical Exam Const: COMMON NORMALS: no acute distress, patient oriented x3, no limitations, healthy appearing, alert and well nourished GENERAL APPEARANCE: cooperative, comfortable, well kempt and well developed; not in distress, not anxious, not combative, not disheveled, not lethargic and not ill appearing ORIENTATION/CONSCIOUSNESS: Yes oriented to person, Yes oriented to place and Yes oriented to time; not lethargic HENMT: COMMON NORMALS: normocephalic and atraumatic HEAD & SCALP: normocephalic and atraumatic MOUTH: Normal oral and palatal mucosa present Eye: COMMON NORMALS: Equal, round and reactive pupils present, EOMs intact bilaterally, conjunctivae normal and no scleral icterus GENERAL EYE: appearance normal, both eyes and all related structures and normal light reflex CONJUNCTIVA: Yes conjunctivae normal PUPIL: Yes Equal, round and reactive pupils present DIRECT OPHTHALMOSCOPY: Yes normal light reflex Neck/C-Spine: COMMON NORMALS: full ROM, no lymphadenopathy, supple, no meningeal signs, no JVD and Thyroid normal THYROID: Thyroid normal Resp: COMMON NORMALS: normal respiratory effort, No retractions, No use of accessory muscles and clear to auscultation bilaterally EFFORT & INSPECTION: Yes able to speak in complete sentences, Yes symmetric chest movement and No respiratory distress AUSCULTATION: clear to auscultation bilaterally Cardio: COMMON NORMALS: no JVD, regular rate, regular rhythm, No gallops present (Cardio), No clicks present (Cardio), No murmurs present (Cardio) and No rub (Cardio) RATE: regular rate RHYTHM: regular rhythm GI: COMMON NORMALS: Normal to inspection, nondistended, normoactive bowel sounds present, Soft to palpation, No hepatosplenomegaly present and no masses INSPECTION: Yes normal to inspection PALPATION: Yes Soft to palpation and Yes No hepatosplenomegaly present : COMMON NORMALS: Yes no CVA tenderness BLADDER/KIDNEY EXAM: Yes no CVA tenderness Back/Pelvis: COMMON NORMALS: no CVA tenderness Extremity: COMMON NORMALS: normal to inspection, no joint enlargement, no clubbing, cyanosis or edema and no calf tenderness; negative for no pedal edema (Trace) Neuro: COMMON NORMALS: patient oriented x3, moves all extremities and no focal motor deficits SENSORIUM/ORIENTATION: Yes alert, Yes oriented to person, Yes oriented to place, Yes oriented to time, No lethargic and No somnolent MENINGEAL SIGNS: Yes no meningeal signs Psych: COMMON NORMALS: mental status grossly normal, Normal thought process present, cooperative, normal affect, speech normal and activity/motor behavior normal APPEARANCE: Yes grossly normal and Yes well kempt ATTITUDE: Yes calm and Yes engaged ACTIVITY/MOTOR BEHAVIOR: Yes appropriate eye contact SPEECH: Yes normal speech THOUGHT PROCESS: Normal thought process present Course Reevaluation(s): Reevaluation #1: Patient is pleasant but adamant that she is going to leave. Labs so far have been unremarkable. Patient will be discharged. Vital Signs: Vital signs: Vital Signs Temperature 98.5 F 12/19/20 19:01 Pulse Rate 78 12/19/20 23:27 Respiratory Rate 16 12/19/20 23:27 Blood Pressure 208/104 12/19/20 23:27 Pulse Oximetry 98 12/19/20 23:27 MDM - Chest Pain Lab Data: Labs: Lab Results 12/19/20 12/19/20 12/19/20 Range/Units 20:40 20:40 20:40 WBC 7.1 (4.0-10.0) 10^3/ uL RBC 3.37 L (4.1-5.3) 10^6/u L Hgb 10.4 L (11.5-15.3) g/dL Hct 33.0 L (37.0-47.0) % MCV 97.9 (81-99) fL MCH 30.9 (28.0-34.0) pg MCHC 31.5 (30.0-36.0) g/dL RDW 13.2 (12.1-15.1) % Plt Count 213 (130-400) 10^3/c mm MPV 9.7 (7.4-10.4) fL Neut % (Auto) 56.8 % Lymph % (Auto) 32.9 % [place] % (Auto) 6.8 % Eos % (Auto) 2.5 % Baso % (Auto) 0.7 % Neut # (Auto) 4.03 (1.8-7.7) 10^3/u L Lymph # (Auto) 2.3 (0.8-4.8) 10^3/u L [place] # (Auto) 0.5 (0.2-0.9) 10^3/u L Eos # (Auto) 0.2 (0.0-0.8) 10^3/u L Baso # (Auto) 0.1 (0.0-0.1) 10^3/u L Nucleated RBC % (a uto) 0 % Nucleated RBCs # 0.0 /100WBC PT 12.80 (12.1-14.9) SECO NDS INR 0.93 (0.8-1.2) APTT 26.4 (23.9-36.7) SECO NDS Sodium 135 L (136-145) mmol/L Potassium 5.4 H (3.5-5.1) mmol/L Chloride 109 H (98-107) mmol/L Carbon Dioxide 15 L (22-29) mmol/L Anion Gap 16.4 (5-19) BUN 27 H (8-23) mg/dL Creatinine 2.1 H (0.5-0.9) mg/dL GFR Calculation Not Reportable Glucose 167 H (65-115) mg/dL Calculated Osmolal ity 289 (285-295) mOsm/k g Calcium 8.5 (8.5-10.5) mg/dL Magnesium 2.0 (1.7-2.3) mg/dL Total Bilirubin 0.2 (0.15-1.2) mg/dL AST 24 (0-32) U/L ALT 20 (0-33) U/L Alkaline Phosphata se 100 (35-105) IU/L Troponin T Baselin e (0-10) ng/L NT-Pro-B Natriuret Pep 1085 H (0-450) pg/mL Total Protein 6.4 L (6.6-8.7) g/dL Albumin 4.0 (3.5-5.2) g/dL Globulin 2.4 (1.3-4.6) g/dL 12/19/20 Range/Units 20:40 WBC (4.0-10.0) 10^3/ uL RBC (4.1-5.3) 10^6/u L Hgb (11.5-15.3) g/dL Hct (37.0-47.0) % MCV (81-99) fL MCH (28.0-34.0) pg MCHC (30.0-36.0) g/dL RDW (12.1-15.1) % Plt Count (130-400) 10^3/c mm MPV (7.4-10.4) fL Neut % (Auto) % Lymph % (Auto) % [place] % (Auto) % Eos % (Auto) % Baso % (Auto) % Neut # (Auto) (1.8-7.7) 10^3/u L Lymph # (Auto) (0.8-4.8) 10^3/u L [place] # (Auto) (0.2-0.9) 10^3/u L Eos # (Auto) (0.0-0.8) 10^3/u L Baso # (Auto) (0.0-0.1) 10^3/u L Nucleated RBC % (a uto) % Nucleated RBCs # /100WBC PT (12.1-14.9) SECO NDS INR (0.8-1.2) APTT (23.9-36.7) SECO NDS Sodium (136-145) mmol/L Potassium (3.5-5.1) mmol/L Chloride (98-107) mmol/L Carbon Dioxide (22-29) mmol/L Anion Gap (5-19) BUN (8-23) mg/dL Creatinine (0.5-0.9) mg/dL GFR Calculation Glucose (65-115) mg/dL Calculated Osmolal ity (285-295) mOsm/k g Calcium (8.5-10.5) mg/dL Magnesium (1.7-2.3) mg/dL Total Bilirubin (0.15-1.2) mg/dL AST (0-32) U/L ALT (0-33) U/L Alkaline Phosphata se (35-105) IU/L Troponin T Baselin e 52 H (0-10) ng/L NT-Pro-B Natriuret Pep (0-450) pg/mL Total Protein (6.6-8.7) g/dL Albumin (3.5-5.2) g/dL Globulin (1.3-4.6) g/dL Discharge Plan Discharge Patient Disposition: Home Clinical Impression: Musculoskeletal pain Chest pain Qualifiers: Chest pain type: other chest pain Qualified Code(s): R07.89 - Other chest pain Condition: Stable Prescriptions: No Action insulin aspart U-100 [Novolog U-100 Insulin aspart] 100 unit/mL Solution See Rx Instructions .ROUTE .COMPLEX Qty: 10 RF: 0 lorazepam 0.5 mg Tablet 0.5 mg PO BID PRN (Reason: Anxiety) Qty: 30 RF: 0 polyethylene glycol 3350 [Miralax] 17 gram Powder In Packet 17 g PO DAILY PRN (Reason: Constipation) RF: 0 magnesium hydroxide [Milk of Magnesia] 400 mg/5 mL Suspension 30 ml PO PRN RF: 0 bisacodyl 10 mg Suppository 10 mg VT DAILY PRN (Reason: Constipation) RF: 0 Enema Disposable 19-7 gram/118 mL Enema 118 ml VT DAILY PRN (Reason: Constipation) RF: 0 sennosides-docusate sodium 8.6-50 mg tablet 1 tab PO BID@0800,1999 RF: 0 rosuvastatin 40 mg tablet 40 mg PO BEDTIME@1999 RF: 0 ondansetron HCl [Zofran] 4 mg Tablet 4 mg PO Q4H PRN (Reason: NAUSEA/VOMITING) RF: 0 fexofenadine [Nicolasa] 180 mg Tablet 180 mg PO DAILY@0800 RF: 0 nitroglycerin 0.4 mg Tablet, Sublingual 0.4 mg SUBLINGUAL . DIRECTED PRN (Reason: Chest Pain) RF: 0 sertraline 25 mg Tablet 25 mg PO DAILY@1999 RF: 0 lisinopril 40 mg Tablet 40 mg PO DAILY@0800 RF: 0 diclofenac sodium [Voltaren] 1 % Gel See Rx Instructions .ROUTE .COMPLEX RF: 0 trazodone 150 mg tablet 150 mg PO BEDTIME@1999 RF: 0 hydrocodone-acetaminophen 7.5-325 mg tablet 1 tab PO Q6H PRN (Reason: Pain) RF: 0 Lantus Solostar U-100 Insulin 100 unit/mL (3 mL) insulin pen 20 unit SUBCUT DAILY@20 RF: 0 Biofreeze 0.2-3.5 % Gel 1 applic TOPICAL BID@08,20 RF: 0 amlodipine 10 mg tablet 10 mg PO DAILY@08 RF: 0 Discharge Orders: Discharge ED (Routine); Ordered 12/19/20 Ordered By: Henri Parra Referrals: Hardy Saab DO [Primary Care Provider] - Discharge Diet: Usual diet Discharge Activity: Resume usual activity Patient Instructions: Opioid Safety Activity Restrictions/Additional Instructions: Continue current medications as prescribed. Coding Level of Care Code ED Screen Operator for Camilla Fwd Exam Comprehensive
[2020-12-19 20:34] VITALS: BP 195/80; PULSE 65; RESP 22; O2SAT 98
[2020-12-19] MEDS: ondansetron 2 mg/ML SDV 2 mL 4 MG IVP (20:34)
[2020-12-19 20:46] LABS: Basophils # 0.1 10^3/uL (0.0-0.1); Basophils % 0.7 %; Eosinophils # 0.2 10^3/uL (0.0-0.8); Eosinophils % 2.5 %; Hemoglobin 10.4 g/dL (11.5-15.3); Lymphocytes # 2.3 10^3/uL (0.8-4.8); Lymphocytes % 32.9 %; Mean Corpuscular HGB Conc 31.5 g/dL (30.0-36.0); Mean Corpuscular Hemoglobin 30.9 pg (28.0-34.0); Mean Corpuscular Volume 97.9 fL (81-99); Mean Platelet Volume 9.7 fL (7.4-10.4); Monocytes # 0.5 10^3/uL (0.2-0.9); Monocytes % 6.8 %; Neutrophils # 4.03 10^3/uL (1.8-7.7); Neutrophils % 56.8 %; Nucleated Red Blood Cells % 0 %; Platelet Count 213 10^3/cmm (130-400); Red Blood Count 3.37 10^6/uL (4.1-5.3); Red Cell Distribution Width 13.2 % (12.1-15.1); White Blood Count 7.1 10^3/uL (4.0-10.0)
[2020-12-19 20:59] LABS: INR 0.93 (0.8-1.2); Partial Thromboplastin Time 26.4 SECONDS (23.9-36.7)
[2020-12-19 21:07] LABS: Troponin(5th) Baseline 52 ng/L (0-10)
[2020-12-19 21:15] LABS: Alanine Aminotransferase 20 U/L (0-33); Alkaline Phosphatase 100 IU/L (35-105); Aspartate Amino Transferase 24 U/L (0-32); Blood Urea Nitrogen 27 mg/dL (8-23); Calcium 8.5 mg/dL (8.5-10.5); Carbon Dioxide 15 mmol/L (22-29); Chloride 109 mmol/L (98-107); Globulin 2.4 g/dL (1.3-4.6); Glucose 167 mg/dL (65-115); NT Pro B Type Natriuretic Pept 1085 pg/mL (0-450); Osmolality Calculated 289 mOsm/kg (285-295); Sodium 135 mmol/L (136-145); Total Bilirubin 0.2 mg/dL (0.15-1.2); Total Protein 6.4 g/dL (6.6-8.7)
[2020-12-19 21:26] VITALS: BP 129/75; PULSE 115; PULSE 65; RESP 21; O2SAT 96
[2020-12-19 21:26] LABS: Anion Gap 16.4 (5-19); Potassium 5.4 mmol/L (3.5-5.1)
--- NOTE | 2020-12-19 21:29 | PC.NURSE ---
Addendum entered by Rosalinda López NRP 12/19/20 22:08: ammend note; wrong pt Original Note: 2 hr trop 144.9; 2 hr delta 32.9
--- NOTE | 2020-12-19 22:17 | PC.NURSE ---
Pt is requesting to go home due to pain and wanting a better bed.
[2020-12-19 23:27] VITALS: BP 208/104; PULSE 78; RESP 16; O2SAT 98
--- NOTE | 2020-12-19 23:33 | PC.NURSE ---
Manual blood pressure noted to be 168/90 prior to discharge.
== END 2020-12-19 23:28 | disposition home or self-care (01) ==
PROVIDERS: Emergency Provider Emergency Medicine; PCP Internal Medicine
DX: R07.89 Other chest pain (principal); M79.18 Myalgia, other site; Z79.4 Long term (current) use of insulin; I12.9 Hypertensive chronic kidney disease with stage 1 through stage 4 chronic kidney disease, or unspecified chronic kidney disease; E11.22 Type 2 diabetes mellitus with diabetic chronic kidney disease; N18.4 Chronic kidney disease, stage 4 (severe); E78.5 Hyperlipidemia, unspecified
CPT/HCPCS: 71045; 80053; 83735; 83880; 84484; 85025; 85610; 85730; 93005; 96374; 99284; J2405

== ENCOUNTER 2020-12-28 12:36 | Inpatient (IN) | payer MEDICARE, MEDICAID, SELFPAY ==
[2020-12-28] VITALS (11 sets, daily range): BP systolic 150–177; BP diastolic 62–89; PULSE 0–115; RESP 15–18; TEMP 36.6; O2SAT 96–100; BMI 29.4
--- NOTE | 2020-12-28 13:15 | CT_ITS ---
WS: [id number] CT cervical spine. Additional two-dimensional coronal and sagittal reconstruction was performed. 12/28 Clinical Data: fall Comparison: None. DLP: 547.[address] scans at [facility] use at least one of these dose optimization techniques: automat ed exposure control; mA and/or kV adjustment per patient size (includes targeted exams where dose is matched to clinical indication); or iterative reconstruction. Findings: No compression fractures are seen. The disc heights are normal. There are minimal subluxations at C3- C4, C4-C5 and C5-C6. There is anterior osteoarthritic spurring at C5-C6. There is ligamentum flavum c alcification noted at the C7-T1 level. The spinous processes are in good alignment. The odontoid is u nremarkable. There is no prevertebral soft tissue swelling. The soft tissues of the cervical spine an d the lung apices are not remarkable. CT/CT cervical spin wo con* [id number] Impression: 1. Minimal subluxations at C3-C4, C4-C5 and C5-C6. 2. Negative for cervical spine fracture.
--- NOTE | 2020-12-28 13:15 | CT_ITS ---
WS: [id number] CT scan of the maxillofacial region. Additional two-dimensional coronal and sagittal reconstruction w as performed. 12/28/2020 Clinical Data: fall/ left cheek bleeding Comparison: None. DLP: 784.[address] scans at [facility] use at least one of these dose optimization techniques: automat ed exposure control; mA and/or kV adjustment per patient size (includes targeted exams where dose is matched to clinical indication); or iterative reconstruction. Findings: No nasal bone fractures are seen.The facial bones are intact. The paranasal sinuses show no air-fluid levels or significant mucoperiosteal thickening. The orbits and orbital contents are normal. The mastoid air cells, internal auditory canals, and sell a turcica are not remarkable. The temporal mandibular joints appear to be normal. The zygomatic arches and nasal bones are normal. The floor of the mouth and parapharyngeal regions demonstrate no abnormalities. The salivary glands a ppear to be normal. CT/CT facial bones wo con* [id number] Impression: Negative CT scan of the maxillofacial region.
--- NOTE | 2020-12-28 13:15 | CT_ITS ---
WS: [id number] CT scan of the head, 12/28/2020 Clinical Data: fall/ pain. von Willebrand's disease hx Comparison: CT head, 01/07/2020. DLP: 791.[address] scans at [facility] use at least one of these dose optimization techniques: automat ed exposure control; mA and/or kV adjustment per patient size (includes targeted exams where dose is matched to clinical indication); or iterative reconstruction. Findings: The ventricular system is minimally dilated without shift. No recent infarct or hemorrhage is seen. T here are no abnormal intracerebral masses. The cerebellum and brainstem are not remarkable. Bony windows of the skull and skull base show no fractures or erosions. The mastoid air cells, geotechnical intern al auditory canals, sella turcica, intraorbital contents, and paranasal sinuses are unremarkable. CT/CT head wo con* [id number] Impression: Negative CT scan of the head
--- NOTE | 2020-12-28 13:15 | XR_ITS ---
WS: [id number] Left wrist, 3 views, 12/28/2020 Clinical Data: fall Comparison: None. Findings: No fractures or dislocations are seen. The carpal bones are intact. There is no soft tissue swelling. The distal radius and ulna are not remarkable. There is an intravenous catheter in the dorsum of the hand. The triradiate cartilage shows minimal ca lcification. XR/XR wrist LT 2V [id number] Impression: Negative left wrist.
--- NOTE | 2020-12-28 13:15 | XR_ITS ---
WS: [id number] Left hand, 2 views, 12/28/2020 Clinical Data: fall Comparison: None. Findings: No fractures or dislocations are seen. The soft tissues are unremarkable. The joint spaces are normal There is diffuse osteoporosis. There is an intravenous catheter in the dorsum of the hand. XR/XR hand LT 2V [id number] Impression: Negative for left hand fracture.
--- NOTE | 2020-12-28 13:20 | XR_ITS ---
WS: [id number] Portable AP upright chest, 12/28/2020 Clinical Data: cp Comparison: Portable chest, 12/19/2020. Findings: No nodules, masses or effusions are seen. The heart is normal. The pulmonary vascularity is not increased. No pneumonia or pneumothorax is seen. The aortic arch and descending aorta show tortu osity. XR/XR chest 1V portable [id number] Impression: Atherosclerosis.
--- NOTE | 2020-12-28 13:30 | ECG_ITS ---
[facility] Test Date: 2020-12-28 Pat Name: Corie Tomas Department: Room: Gender: Female Insurance Sales Manager: : 1940 Requested By: Ruddy Nugent Order Number: [id number] Tapan MD: Susie Cooper M.D. Measurements Intervals [place] Rate: 63 P: 86 IL: 204 QRS: -60 QRSD: 128 T: 39 QT: 434 QTc: 447 Interpretive Statements SINUS RHYTHM RIGHT BUNDLE BRANCH BLOCK [120+ ms QRS DURATION, UPRIGHT V1, 40+ ms S IN I/aVL/V4/V5/V6] LEFT ANTERIOR FASCICULAR BLOCK [QRS AXIS <= -45, QR IN I, RS IN II] SEPTAL MYOCARDIAL INFARCTION , OF INDETERMINATE AGE [40+ ms Q WAVE IN V1/V2] Compared to ECG 12/19/2020 21:44:47 No significant changes Electronically Signed On 12-28-2020 18:21:11 CDT by Susie Cooper M.D. [id number]
[2020-12-28 15:11] LABS: Basophils % 0.6 %; Eosinophils # 0.2 10^3/uL (0.0-0.8); Eosinophils % 2.5 %; Hematocrit 30.4 % (37.0-47.0); Hemoglobin 9.1 g/dL (11.5-15.3); Lymphocytes # 1.6 10^3/uL (0.8-4.8); Lymphocytes % 22.9 %; Mean Corpuscular HGB Conc 29.9 g/dL (30.0-36.0); Mean Corpuscular Hemoglobin 30.6 pg (28.0-34.0); Mean Corpuscular Volume 102.4 fL (81-99); Monocytes # 0.5 10^3/uL (0.2-0.9); Monocytes % 6.7 %; Neutrophils # 4.74 10^3/uL (1.8-7.7); Neutrophils % 67.2 %; Nucleated Red Blood Cells % 0 %; Platelet Count 233 10^3/cmm (130-400); Red Blood Count 2.97 10^6/uL (4.1-5.3); Red Cell Distribution Width 13.1 % (12.1-15.1); White Blood Count 7.1 10^3/uL (4.0-10.0)
[2020-12-28 15:25] LABS: Add Urine Microscopic? YES; Bilirubin Urine Neg (Negative); Blood Urine 2+ (Negative); Glucose Urine UA Norm (Normal); Ketones Urine Negative (Negative); Leukocyte Esterase Urine Negative (Negative); Nitrate Urine Negative (Negative); Protein Urine 3+ (Negative); Urine Appearance Clear (CLEAR); Urine Color Yellow (Yellow); Urobilinogen Urine Norm (Negative); pH Urine 5 (5-7)
[2020-12-28 15:26] LABS: Bacteria Urine TRACE /hpf; Squamous Epithelial Cell Urine 0-4 /hpf (0-5); WBC Urine RARE /hpf (0-5)
--- NOTE | 2020-12-28 15:30 | ECG_ITS ---
[facility] Test Date: 2020-12-28 Pat Name: Corie Tomas Department: Room: Gender: Female Ultrasound Applications Specialist: : 1940 Requested By: Ruddy Nugent Order Number: [id number] Tapan MD: Susie Cooper M.D. Measurements Intervals [employer] Rate: 73 P: 54 CO: 194 QRS: -59 QRSD: 124 T: 42 QT: 404 QTc: 446 Interpretive Statements SINUS RHYTHM WITH SINUS ARRHYTHMIA RIGHT BUNDLE BRANCH BLOCK [120+ ms QRS DURATION, UPRIGHT V1, 40+ ms S IN I/aVL/V4/V5/V6] LEFT ANTERIOR FASCICULAR BLOCK [QRS AXIS <= -45, QR IN I, RS IN II] POSSIBLE SEPTAL MYOCARDIAL INFARCTION , OF INDETERMINATE AGE [30 ms Q WAVE IN V1/V2] Compared to ECG 12/28/2020 14:31:36 No significant changes Electronically Signed On 12-28-2020 18:26:24 CDT by Susie Cooper M.D. [id number]
[2020-12-28 15:36] LABS: D Dimer 2.35 ug/mIFEU (0-0.59)
[2020-12-28 15:40] LABS: Alanine Aminotransferase 19 U/L (0-33); Albumin Level 3.8 g/dL (3.5-5.2); Alkaline Phosphatase 88 IU/L (35-105); Anion Gap 17.7 (5-19); Aspartate Amino Transferase 20 U/L (0-32); Blood Urea Nitrogen 38 mg/dL (8-23); Calcium 8.5 mg/dL (8.5-10.5); Carbon Dioxide 14 mmol/L (22-29); Chloride 109 mmol/L (98-107); Globulin 2.6 g/dL (1.3-4.6); Glucose 136 mg/dL (65-115); NT Pro B Type Natriuretic Pept 753 pg/mL (0-450); Osmolality Calculated 289 mOsm/kg (285-295); Sodium 134 mmol/L (136-145); Total Bilirubin 0.2 mg/dL (0.15-1.2); Total Protein 6.4 g/dL (6.6-8.7)
[2020-12-28 15:43] LABS: Potassium 6.7 mmol/L (3.5-5.1)
[2020-12-28 16:03] LABS: Troponin(5th) Baseline 47 ng/L (0-10)
[2020-12-28] MEDS: insulin regular-human 100 units/1 mL 10 UNIT IVP (16:06)
[2020-12-28] MEDS: dextrose 50% syringe 50 mL IVP (16:10)
--- NOTE | 2020-12-28 16:16 | PC.NURSE ---
pt refuses to lay in the bed, sit on the bed, or allow nurse to relocate chair closer to vital signs monitoring equipment. pt education provided on the importance of vital sign and cardiac monitoring. pt continues to decline relocation of chair or monitoring equipment at this time. pt provided with a warm blanket. pt education provided on fall risks and fall prevention. MD Nugent notified.
--- NOTE | 2020-12-28 16:33 | W.ED.FALL ---
HPI - Fall General: Chief Complaint: Fall Stated Complaint: FALL, VERTIGO, HEMOPHILIAC Time Seen by Provider: 12/28/20 12:43 History of Present Illness: HPI Narrative: The patient is an 80-year-old female who comes from [place] after she fell while she was trying to get out of her wheelchair. She fell to her left face and has a small laceration where her eyeglasses meet her upper cheek on the left side. Also hit her head on the back and complains of pain to the back of her head. She has von Willebrand disease but does not take any medication for this. Also she has a history of diabetes. She recently signed out AGAINST MEDICAL ADVICE for hyperkalemia as well. She complains of left-sided chest pain on and off for several months and currently complains of it in the ED as well. Also she says she is dizzy and feels like the room is spinning. This has been a chronic problem for some time as well. MD complaint: fall Fall from: standing Loss of consciousness: None Prolonged down time: no Context: tripped/slipped Severity: moderate Associated symptoms-after fall: Reports chest pain, headache(s), vertigo and other (Dizziness); Denies abdominal pain, confusion, difficulty walking or neck pain Review of Systems General: Reports: 10 or more systems reviewed and unremarkable except in HPI and below Const: Denies: fatigue Eyes: Denies: change in vision, blurry vision or eye redness ENMT: Denies: throat pain, swelling of lips/tongue, ear or mastoid pain or nasal congestion Card: Reports: chest pain Resp: Denies: dyspnea, productive cough or non-productive cough GI: Denies: abdominal pain, diarrhea or GI cramping : Denies: flank pain, difficulty voiding, urinary frequency or urinary urgency Musc: Denies: neck pain, back pain, extremity pain, joint pain, joint redness, limited range of motion or muscle weakness Skin/Breast: Denies: rash, pruritus, erythema, skin pain or skin tenderness Neuro: Reports: headache(s) and vertigo; Denies: numbness in extremities, weakness in extremities, sensory changes, difficulty walking, dizziness, confusion or Slurred speech present Psych: Denies: anxiety or depression Endo: Denies: polyuria All/Imm: Denies: urticaria, throat swelling or tongue swelling PFSH ED PFSH: Medical History (Updated 12/28/20 @ 16:40 by Ruddy Nugent MD) Bifascicular block Chronic kidney disease (CKD), stage IV (severe) Degenerative joint disease Diabetes Dyslipidemia GERD (gastroesophageal reflux disease) Hypertension Von Willebrands disease Pt reported, PCP not not have diagnosis in her records Surgical History H/O cardiac catheterization 2009, normal EF nonsignificant irregular coronary artery disease Hx of cholecystectomy S/P cataract surgery Status post open reduction and internal fixation (ORIF) of fracture left hip, 12/2019, Dr Austin Family History Denies family history of CAD (coronary artery disease) Clotting disorder Chronic kidney disease (CKD) Social History Smoking and tobacco status: never smoked Alcohol intake: never Lives independently: Yes Additional social history: Her sister has power of cognos report developer named Sujatha Physical Exam Const: COMMON NORMALS: no acute distress, average body habitus, patient oriented x3, no limitations, healthy appearing, alert and well nourished GENERAL APPEARANCE: cooperative, comfortable, well kempt and well developed ORIENTATION/CONSCIOUSNESS: Yes awake, Yes oriented to person, Yes oriented to place and Yes oriented to time HENMT: COMMON NORMALS: normocephalic, external ears normal and Normal external nose present HEAD & SCALP: normal to inspection and normocephalic NOSE: Normal external nose present EXTERNAL EAR: Yes external ears normal MOUTH: Normal oral and palatal mucosa present THROAT: posterior oropharynx normal Eye: COMMON NORMALS: Equal, round and reactive pupils present and EOMs intact bilaterally GENERAL EYE: appearance normal, both eyes and all related structures PUPIL: Yes Equal, round and reactive pupils present Neck/C-Spine: COMMON NORMALS: full ROM, no lymphadenopathy, no meningeal signs and no JVD GENERAL: Yes normal visual inspection Lymph: LYMPHATIC: no lymphadenopathy noted Chest: COMMONS NORMALS: normal inspection of the chest and normal palpation of entire chest wall Resp: COMMON NORMALS: normal respiratory effort, No retractions, No use of accessory muscles, clear to auscultation bilaterally and percussion normal EFFORT & INSPECTION: Yes able to speak in complete sentences AUSCULTATION: clear to auscultation bilaterally PERCUSSION: percussion normal Cardio: COMMON NORMALS: no JVD, regular rate, regular rhythm, S1 normal heart sound present, S2 normal heart sound present and Peripheral pulses 2+ throughout RATE: regular rate RHYTHM: regular rhythm HEART SOUNDS: S1 normal heart sound present and S2 normal heart sound present PERIPHERAL PULSES: Peripheral pulses 2+ throughout GI: COMMON NORMALS: Normal to inspection, nondistended, normoactive bowel sounds present, Soft to palpation, non-tender and no masses INSPECTION: Yes normal to inspection PALPATION: Yes Soft to palpation : COMMON NORMALS: Yes no CVA tenderness BLADDER/KIDNEY EXAM: Yes no CVA tenderness Back/Pelvis: COMMON NORMALS: no CVA tenderness, thoracic and lumbar spine normal to inspection, no thoracic nor lumbar tenderness and thoraco-lumbar ROM normal Extremity: COMMON NORMALS: normal to inspection, full ROM, capillary refill normal, no joint enlargement and no pedal edema GENERAL: Yes normal exam except as noted Neuro: COMMON NORMALS: patient oriented x3, CN's II-XII intact bilaterally, moves all extremities, no focal motor deficits, no sensory deficits noted and gait normal SENSORIUM/ORIENTATION: Yes alert, Yes oriented to person, Yes oriented to place and Yes oriented to time MENINGEAL SIGNS: Yes no meningeal signs Psych: COMMON NORMALS: mental status grossly normal, Normal thought process present, cooperative, normal affect and speech normal APPEARANCE: Yes well kempt ATTITUDE: Yes calm SPEECH: Yes normal speech THOUGHT PROCESS: Normal thought process present Skin: COMMON NORMALS: no rashes or lesions noted NARRATIVE SKIN EXAM: Normal except small abrasion where her glasses meet her upper cheek on the left side. Also small contusion to posterior scalp. GENERAL SKIN EXAM: no rashes or lesions noted Course Vital Signs: Vital signs: Vital Signs Pulse Rate 82 12/28/20 15:02 Respiratory Rate 18 12/28/20 15:02 Blood Pressure 164/70 12/28/20 15:02 Pulse Oximetry 100 12/28/20 15:02 MDM - Fall MDM Narrative: Medical decision making narrative: The patient is a 80-year-old female with past medical history CKD who comes to the ER after a fall. Imaging is negative for any acute pathology. She does however have acutely potassium 6.7. Possibly related to her chronic kidney disease creatinine 2.3 with BUN 38. She requested to sign out AMA. She did recently sign out AMA for the same complaint however her potassium is much higher now. I urged her to stay or there is a high likelihood she could if she goes back to [facility]. She reluctantly agreed to stay. She was given IV calcium gluconate, D50, insulin. Discussed with Dr. Charles who accepts for admission. Lab Data: Labs: Lab Results 12/28/20 12/28/20 12/28/20 Range/Units 14:30 15:00 15:00 WBC 7.1 (4.0-10.0) 10^3/ uL RBC 2.97 L (4.1-5.3) 10^6/u L Hgb 9.1 L (11.5-15.3) g/dL Hct 30.4 L (37.0-47.0) % MCV 102.4 H (81-99) fL MCH 30.6 (28.0-34.0) pg MCHC 29.9 L (30.0-36.0) g/dL RDW 13.1 (12.1-15.1) % Plt Count 233 (130-400) 10^3/c mm MPV 9.0 (7.4-10.4) fL Neut % (Auto) 67.2 % Lymph % (Auto) 22.9 % Lawrence % (Auto) 6.7 % Eos % (Auto) 2.5 % Baso % (Auto) 0.6 % Neut # (Auto) 4.74 (1.8-7.7) 10^3/u L Lymph # (Auto) 1.6 (0.8-4.8) 10^3/u L Lawrence # (Auto) 0.5 (0.2-0.9) 10^3/u L Eos # (Auto) 0.2 (0.0-0.8) 10^3/u L Baso # (Auto) 0.0 (0.0-0.1) 10^3/u L Nucleated RBC % (a uto) 0 % Nucleated RBCs # 0.0 /100WBC D-Dimer 2.35 H (0-0.59) ug/mIFE U Sodium (136-145) mmol/L Potassium (3.5-5.1) mmol/L Chloride (98-107) mmol/L Carbon Dioxide (22-29) mmol/L Anion Gap (5-19) BUN (8-23) mg/dL Creatinine (0.5-0.9) mg/dL GFR Calculation Glucose (65-115) mg/dL Calculated Osmolal ity (285-295) mOsm/k g Calcium (8.5-10.5) mg/dL Total Bilirubin (0.15-1.2) mg/dL AST (0-32) U/L ALT (0-33) U/L Alkaline Phosphata se (35-105) IU/L Troponin T Baselin e (0-10) ng/L NT-Pro-B Natriuret Pep (0-450) pg/mL Total Protein (6.6-8.7) g/dL Albumin (3.5-5.2) g/dL Globulin (1.3-4.6) g/dL Urine Color Yellow (Yellow) Urine Appearance Clear (CLEAR) Urine pH 5 (5-7) Ur Specific Gravit y 1.010 (1.005-1.030) Urine Protein 3+ H (Negative) Urine Glucose (UA) Norm (Normal) Urine Ketones Negative (Negative) Urine Blood 2+ H (Negative) Urine Nitrate Negative (Negative) Urine Bilirubin Neg (Negative) Urine Urobilinogen Norm (Negative) mg/dL Ur Leukocyte Dilia ase Negative (Negative) Urine RBC None (0-2) /hpf Urine WBC Rare (0-5) /hpf Ur Squamous Epith Cells 0-4 H (0-5) /hpf Amorphous Sediment Not Reportable Urine Bacteria Trace (NONE) /hpf 12/28/20 12/28/20 Range/Units 15:00 15:00 WBC (4.0-10.0) 10^3/ uL RBC (4.1-5.3) 10^6/u L Hgb (11.5-15.3) g/dL Hct (37.0-47.0) % MCV (81-99) fL MCH (28.0-34.0) pg MCHC (30.0-36.0) g/dL RDW (12.1-15.1) % Plt Count (130-400) 10^3/c mm MPV (7.4-10.4) fL Neut % (Auto) % Lymph % (Auto) % Lawrence % (Auto) % Eos % (Auto) % Baso % (Auto) % Neut # (Auto) (1.8-7.7) 10^3/u L Lymph # (Auto) (0.8-4.8) 10^3/u L Lawrence # (Auto) (0.2-0.9) 10^3/u L Eos # (Auto) (0.0-0.8) 10^3/u L Baso # (Auto) (0.0-0.1) 10^3/u L Nucleated RBC % (a uto) % Nucleated RBCs # /100WBC D-Dimer (0-0.59) ug/mIFE U Sodium 134 L (136-145) mmol/L Potassium 6.7 H* (3.5-5.1) mmol/L Chloride 109 H (98-107) mmol/L Carbon Dioxide 14 L (22-29) mmol/L Anion Gap 17.7 (5-19) BUN 38 H (8-23) mg/dL Creatinine 2.3 H (0.5-0.9) mg/dL GFR Calculation Not Reportable Glucose 136 H (65-115) mg/dL Calculated Osmolal ity 289 (285-295) mOsm/k g Calcium 8.5 (8.5-10.5) mg/dL Total Bilirubin 0.2 (0.15-1.2) mg/dL AST 20 (0-32) U/L ALT 19 (0-33) U/L Alkaline Phosphata se 88 (35-105) IU/L Troponin T Baselin e 47 H (0-10) ng/L NT-Pro-B Natriuret Pep 753 H (0-450) pg/mL Total Protein 6.4 L (6.6-8.7) g/dL Albumin 3.8 (3.5-5.2) g/dL Globulin 2.6 (1.3-4.6) g/dL Urine Color (Yellow) Urine Appearance (CLEAR) Urine pH (5-7) Ur Specific Gravit y (1.005-1.030) Urine Protein (Negative) Urine Glucose (UA) (Normal) Urine Ketones (Negative) Urine Blood (Negative) Urine Nitrate (Negative) Urine Bilirubin (Negative) Urine Urobilinogen (Negative) mg/dL Ur Leukocyte Dilia ase (Negative) Urine RBC (0-2) /hpf Urine WBC (0-5) /hpf Ur Squamous Epith Cells (0-5) /hpf Amorphous Sediment Urine Bacteria (NONE) /hpf Discharge Plan Discharge Patient Disposition: Admitted As Inpatient Clinical Impression: Acute hyperkalemia, Chronic kidney disease (CKD), stage IV (severe), Chest pain, Dizziness Condition: Stable Coding Level of Care Code ED Media Planner / Buyer for Camilla Solis
--- NOTE | 2020-12-28 16:47 | PM.HP ---
Providers/Chief Complaint Primary Care Provider: Hardy Saab DO Chief Complaint: FALL, VERTIGO, HEMOPHILIAC History of Present Illness Corie Tomas is a 80 year old female with past medical history of chronic kidney disease stage IV, von Willebrand disease (not confirmed) , insulin-dependent diabetes, came in with chief complaint of After experiencing a fall at her long-term ( [facility] ), at the time of fall she was complaining of, spinning of her room as well as spinning of her head, because of this she fell on the ground, and hit her head. There was brief loss of consciousness also. She is also complaining of left-sided chest pain going on for the last multiple days, radiating to her left arm. Upon arrival in the ER she was worked up for above-mentioned problem. Imaging studies: CT head without contrast: No acute intracranial pathology. X-ray chest: No infiltrates, no effusion, pulmonary vascularity is normal, no pneumothorax. EKG: Sinus rhythm,RBBB,LAFB (unchanged from the past ) Pertinent labs: CBC: WBC: 7.1, H&H: 9.1/30.4, platelet count: 233 , CMP: Serum sodium:134, serum potassium:6.7, random blood glucose:136, BUN/creatinine: 38/ 2.3 Troponin T: Baseline: 47, proBNP:753 , D-dimer: 2.53 Urinalysis: Clean ECA medications: Patient was given hyperkalemia cocktail. Review of Systems Const: Denies: fever(s), chills, body aches, change in appetite or diaphoresis Card: Denies: palpitations, edema, swelling of feet/ankles, dyspnea on exertion, orthopnea or leg pain with exertion Resp: Denies: dyspnea, productive cough, wheezing or pain on inspiration GI: Denies: abdominal pain, nausea, vomiting, diarrhea or constipation : Denies: flank pain Musc: Denies: back pain, extremity pain or extremity swelling Medications/Allergies Home Medications Medication Instructions Recorded Confirmed Last Taken Type insulin aspart U-100 [Novolog See Rx Instructions .ROUTE 12/31/19 12/28/20 12/16/20 11:00 Rx U-100 Insulin aspart] .COMPLEX #10 ml 2 UNITS lorazepam 0.5 mg PO BID PRN #30 tab 12/31/19 12/28/20 12/28/20 Rx Enema Disposable 118 ml ID DAILY PRN 01/07/20 12/28/20 Unknown History bisacodyl 10 mg ID DAILY PRN 01/07/20 12/28/20 Unknown History magnesium hydroxide [Milk of 30 ml PO PRN 01/07/20 12/28/20 Unknown History Magnesia] polyethylene glycol 3350 [Miralax] 17 g PO DAILY PRN 01/07/20 12/28/20 Unknown History rosuvastatin 40 mg PO BEDTIME@199901/07/20 12/28/20 12/27/20 History sennosides-docusate sodium 1 tab PO BID@0800,199901/07/20 12/28/20 12/28/20 History diclofenac sodium [Voltaren] See Rx Instructions .ROUTE .COMPLEX 12/16/20 12/28/20 12/28/20 History fexofenadine [Nicolasa] 180 mg PO DAILY@0800 12/16/20 12/28/20 12/28/20 History lisinopril 40 mg PO DAILY@0812/16/20 12/28/20 12/28/20 History nitroglycerin 0.4 mg SUBLINGUAL . DIRECTED PRN 12/16/20 12/28/20 12/16/20 History ondansetron HCl [Zofran] 4 mg PO Q4H PRN 12/16/20 12/28/20 12/19/20 17:00 History sertraline 25 mg PO DAILY@199912/16/20 12/28/20 12/27/20 History trazodone 150 mg PO BEDTIME@199912/16/20 12/28/20 12/27/20 History amlodipine 10 mg PO DAILY@12/19/20 12/28/20 12/28/20 History hydrocodone-acetaminophen 1 tab PO Q6H PRN 12/19/20 12/28/20 12/28/20 History insulin glargine [Lantus Solostar 20 unit SUBCUT DAILY@12/19/20 12/28/20 12/28/20 History U-100 Insulin] isosorbide mononitrate 30 mg PO DAILY@0800 12/28/20 12/28/20 12/28/20 History Allergies Allergy/AdvReac Type Severity Reaction Status Date / Time Penicillins Allergy Unknown Unknown Verified 01/26/20 11:05 Sulfa (Sulfonamide Allergy Unknown Unknown Verified 01/26/20 11:05 Antibiotics) aspirin Allergy ALGY-Rash Verified 01/26/20 11:05 Fish Containing Products Allergy Unknown Verified 12/19/20 20:11 strawberry Allergy Unknown Verified 03/10/20 02:46 PFSH Acute PFSH: Medical History (Updated 12/28/20 @ 18:20 by Kirby Charles MD) Bifascicular block Chronic kidney disease (CKD), stage IV (severe) Degenerative joint disease Diabetes Dyslipidemia GERD (gastroesophageal reflux disease) Hypertension Von Willebrands disease Pt reported, PCP not not have diagnosis in her records Surgical History H/O cardiac catheterization 2009, normal EF nonsignificant irregular coronary artery disease Hx of cholecystectomy S/P cataract surgery Status post open reduction and internal fixation (ORIF) of fracture left hip, 12/2019, Dr Austin Family History Denies family history of CAD (coronary artery disease) Clotting disorder Chronic kidney disease (CKD) Social History Smoking and tobacco status: never smoked Alcohol intake: never Lives independently: Yes Additional social history: Her sister has power of defense attorney named Sujatha Vitals/I&O/Wt Last Vital Signs Pulse 82 12/28/20 15:02 Resp 18 12/28/20 15:02 BP 164/70 12/28/20 15:02 Pulse Ox 100 12/28/20 15:02 Weight last 48 hrs Weight 68.356 kg Physical Exam Const: COMMON NORMALS: patient oriented x3 HENMT: COMMON NORMALS: normocephalic and atraumatic HEAD & SCALP: normocephalic and atraumatic Chest: CHEST: Yes Symmetrical chest wall rise Resp: COMMON NORMALS: clear to auscultation bilaterally EFFORT & INSPECTION: Yes symmetric chest movement AUSCULTATION: clear to auscultation bilaterally Cardio: COMMON NORMALS: regular rate, regular rhythm, S1 normal heart sound present, S2 normal heart sound present, No gallops present (Cardio), No murmurs present (Cardio), No rub (Cardio) and Peripheral pulses 2+ throughout RATE: regular rate RHYTHM: regular rhythm HEART SOUNDS: S1 normal heart sound present and S2 normal heart sound present PERIPHERAL PULSES: Peripheral pulses 2+ throughout GI: COMMON NORMALS: Normal to inspection, nondistended, normoactive bowel sounds present, Soft to palpation, non-tender, No hepatosplenomegaly present and no masses AUSCULTATION: Yes normoactive bowel sounds PALPATION: Yes Soft to palpation and Yes No hepatosplenomegaly present RECTAL EXAM: deferred Extremity: COMMON NORMALS: no clubbing, cyanosis or edema and no pedal edema Neuro: COMMON NORMALS: patient oriented x3 Data : 12/28/20 15:00 12/28/20 15:00 A&P Assessment and plan (1) Acute hyperkalemia: Patient has received dextrose, insulin and Kayexalate in the ER. Monitor BMP Telemetry Status: Acute (2) Syncope: Likely vasovagal. Orthostatic vital signs Fall precautions Telemetry Carotid Doppler 2D echo Status: Acute (3) Chest pain: Atypical chest pain likely musculoskeletal, as it is reproducible. Follow troponins 2D echo Continue Imdur 30 mg p.o. daily Sublingual nitro Possible stress test Status: Acute (4) Anemia: Macrocytic anemia: Anemia panel B12 Folic acid Monitor CBC Transfuse to maintain hemoglobin greater than 7 Status: Acute (5) Metabolic acidosis: Likely secondary to underlying CKD Status: Acute (6) Hypertension: Status: Chronic Qualifiers: Hypertension type: essential hypertension Qualified Code(s): I10 - Essential (primary) hypertension (7) Diabetes: Status: Chronic Qualifiers: Diabetes mellitus type: type 2 Diabetes mellitus manager intermediate insulin use: with nursing home use Diabetes mellitus complication status: with kidney complications Diabetes mellitus complication detail: with chronic kidney disease Chronic kidney disease stage: stage 4 (severe) Qualified Code(s): E11.22 - Type 2 diabetes mellitus with diabetic chronic kidney disease; N18.4 - Chronic kidney disease, stage 4 (severe); Z79.4 - termite exterminator (current) use of insulin (8) Chronic kidney disease (CKD), stage IV (severe): Status: Chronic (9) Von Willebrands disease: Status: Chronic (10) Elevated d-dimer: Status: Acute Additional A&P Information Code Status :Full code DVT PPX: SCDS Attestations Medical Necessity Statement*: Patient needs to be in hospital for management of acute hyperkalemia, syncope and chest pain work-up.Anticipated length of stay greater than 2 midnights Coding Level of Care Code Acute [place] Machine Operator Helper for Chg Fwd Diagnoses Acute hyperkalemia E87.5 Syncope R55 Chest pain R07.9 Anemia D64.9 Metabolic acidosis E87.2 Hypertension I10 Hypertension type: essential hypertension Diabetes E11.22; N18.4; Z79.4 Diabetes mellitus type: type 2 Diabetes mellitus manager intermediate insulin use: with nursing home use Diabetes mellitus complication status: with kidney complications Diabetes mellitus complication detail: with chronic kidney disease Chronic kidney disease stage: stage 4 (severe) Chronic kidney disease (CKD), stage IV (severe) N18.4 Von Willebrands disease D68.0 Elevated d-dimer R79.89
--- NOTE | 2020-12-28 17:09 | PC.NURSE ---
hospitalist notified RN that pt is feeling dizzy and is refusing to move from chair to bed. pt agreeable to sit in wheelchair. pt assisted with transferring to a wheelchair. pt agrees to pulse ox probe being placed on her finger. pt refused BP cuff of cardiac monitoring. pt provided with additional blanket. pt education on fall risk and fall prevention provided. pt verbalizes understanding and states no I won't fall. I know before I fall. wheelchair locked and foot pedals down for pt comfort. pt educated collision technician light and call light within reach. pt verbalizes understanding of call light education.
[2020-12-28 18:21] LABS: Troponin 5 2HR 56.41 ng/L (0-10); Troponin 5 2HR Delta 9.41 ABS# (0-10)
[2020-12-28] MEDS: LORazepam 0.5 mg Tablet PO (19:01)
[2020-12-28] MEDS: trazodone 150 mg Tablet PO (19:02)
[2020-12-28] MEDS: sennosides-docusate Tablet 1 TAB PO (19:02)
[2020-12-28] MEDS: atorvastatin 40 mg Tablet 80 MG PO (19:02)
[2020-12-28] MEDS: meclizine 25 mg tablet PO (19:02)
[2020-12-28] MEDS: sertraline 50 mg Tablet 25 MG PO (19:02)
--- NOTE | 2020-12-28 19:30 | ECG_ITS ---
[facility] Test Date: 2020-12-28 Pat Name: Corie Tomas Department: Room: 101 Gender: Female Tangible Personal Property Appraiser: : 1940 Requested By: Ruddy Nugent Order Number: [id number] T[place] MD: Raymond Wright M.D. Measurements Intervals [place] Rate: 80 P: 48 PA: 190 QRS: -57 QRSD: 120 T: 43 QT: 393 QTc: 456 Interpretive Statements SINUS RHYTHM WITH SINUS ARRHYTHMIA RIGHT BUNDLE BRANCH BLOCK [120+ ms QRS DURATION, UPRIGHT V1, 40+ ms S IN I/aVL/V4/V5/V6] LEFT ANTERIOR FASCICULAR BLOCK [QRS AXIS <= -45, QR IN I, RS IN II] Compared to ECG 12/28/2020 16:02:07 Myocardial infarct finding no longer present Electronically Signed On 12-29-2020 19:35:39 CDT by Raymond Wright M.D. [email or web address]
--- NOTE | 2020-12-28 19:39 | PC.NURSE ---
Patient refusing to have telemetry placed, demanding to have night medications RIGHT NOW. Dr Charles present on the floor. Received okay to give night time medications now. Doctor went to room to see patient. Patient wanting to go home now. Patient repeats just want to go home. KYLEIGH Duval was able to administer medications to patient with some argument from patient.l Patient resting in bed presently still refusing to have telemetry placed at this time.
[2020-12-28 20:17] LABS: Glucose Point of Care 199 mg/dL (70-110)
[2020-12-28] MEDS: oxyCODONE-APAP 5-325 mg Tablet 1 TAB PO (20:28)
[2020-12-28] MEDS: insulin glargine 100 units/1 mL 20 UNIT SUBCUT (20:36)
[2020-12-28 21:20] LABS: Troponin 5 6HR 55.47 ng/L (0-10); Troponin 5 6HR Delta 8.47 ng/L (0-12)
[2020-12-28] MEDS: diclofenac 1% Topical Gel 100 gm TOPICAL (21:53)
[2020-12-29] VITALS (13 sets, daily range): BP systolic 133–157; BP diastolic 51–99; PULSE 0–87; RESP 16–24; TEMP 36.4–36.8; O2SAT 96–100
[2020-12-29 00:10] LABS: Potassium 6.1 mmol/L (3.5-5.1)
[2020-12-29] MEDS: oxyCODONE-APAP 5-325 mg Tablet 1 TAB PO ×3 (04:18→18:21)
[2020-12-29 04:37] LABS: Basophils % 0.4 %; Eosinophils # 0.3 10^3/uL (0.0-0.8); Eosinophils % 4.1 %; Hematocrit 29.2 % (37.0-47.0); Hemoglobin 8.9 g/dL (11.5-15.3); Lymphocytes # 2.2 10^3/uL (0.8-4.8); Lymphocytes % 32.2 %; Mean Corpuscular HGB Conc 30.5 g/dL (30.0-36.0); Mean Corpuscular Volume 101.7 fL (81-99); Mean Platelet Volume 9.1 fL (7.4-10.4); Monocytes # 0.7 10^3/uL (0.2-0.9); Monocytes % 10.4 %; Neutrophils % 52.8 %; Nucleated Red Blood Cells % 0 %; Platelet Count 225 10^3/cmm (130-400); Red Blood Count 2.87 10^6/uL (4.1-5.3); White Blood Count 6.8 10^3/uL (4.0-10.0)
[2020-12-29 04:40] LABS: INR 0.98 (0.8-1.2); Partial Thromboplastin Time 27.2 SECONDS (23.9-36.7)
[2020-12-29 04:52] LABS: Anion Gap 12.1 (5-19); Blood Urea Nitrogen 35 mg/dL (8-23); Calcium 8.3 mg/dL (8.5-10.5); Carbon Dioxide 19 mmol/L (22-29); Chloride 110 mmol/L (98-107); Glucose 65 mg/dL (65-115); Osmolality Calculated 286 mOsm/kg (285-295); Potassium 6.1 mmol/L (3.5-5.1); Sodium 135 mmol/L (136-145)
--- NOTE | 2020-12-29 07:00 | USCV_ITS ---
Corie Tomas Age: 80 Gender: F : 1940 Exam Date: 12/29/2020 05:55 Ordering Phys: Kirby Charles MD Technologist: Lisa Barr [place] [facility] [place]: chest pain BP: 150 / 68 HR: 63 Rhythm: Sinus Technical Quality: Adequate MEASUREMENTS (Male / Female) Normal Values 2D ECHO LV Diastolic Diameter PLAX 4.1 cm 4.2 - 5.9 / 3.9 - 5.3 cm LV Systolic Diameter PLAX 2.1 cm LV Chamber Size 2.7 cm IVS Diastolic Thickness 1.1 cm 0.6 - 1.0 / 0.6 - 0.9 cm IVS Systolic Thickness 1.6 cm LVPW Diastolic Thickness 2.5 cm 0.6 - 1.0 / 0.6 - 0.9 cm LVPW Systolic Thickness 2.2 cm RV Chamber Size 2.0 cm LVOT Diameter 2.0 cm LV Ejection Fraction 2D Teich 79.6 % LV Ejection Fraction MOD 2C 36.3 % LV Ejection Fraction 2C AL 35.3 % LA Diameter 3.2 cm LA Width 3.1 cm LA Height 5.1 cm RA Width 2.5 cm RA Height 4.3 cm Aorta at Sinotubular Diameter 2.5 cm M-MODE LV Diastolic Diameter MM 5.5 cm 4.2 - 5.9 / 3.9 - 5.3 cm LV Systolic Diameter MM 4.5 cm LV Ejection Fraction MM Teich 38.4 % IVS Diastolic Thickness MM 1.0 cm 0.6 - 1.0 / 0.6 - 0.9 cm IVS Systolic Thickness MM 1.6 cm LVPW Diastolic Thickness MM 1.1 cm 0.6 - 1.0 / 0.6 - 0.9 cm LVPW Systolic Thickness MM 1.4 cm Aortic Annulus Diameter 3.5 cm LA Ao Ratio MM 1.0 MV E Point Septal Separation 1.7 cm DOPPLER AV Peak Velocity 182.0 cm/s LVOT Peak Velocity 115.0 cm/s AV Area Cont Eq vti 2.1 cm squared AV Area Cont Eq pk 2.1 cm squared MV Area PHT 2.8 cm squared Mitral E to A Ratio 0.8 MV E' Velocity 71.0 cm/s Mitral E to MV E' Ratio 14.1 Mitral E to LV E' Lateral Ratio 12.9 Mitral E to LV E' Septal Ratio 15.8 TR Peak Velocity 158.8 cm/s TR Peak Gradient 10.1 mmHg TV Peak E Velocity 50.0 cm/s Right Atrial Pressure 3.0 mmHg Pulmonary Artery Systolic Pressu 13.1 mmHg PV Peak Velocity 75.0 cm/s RV Acceleration Time 0.2 s RV Ejection Time 0.4 s RV AcT/ET 0.4 FINDINGS Left Ventricle Normal left ventricular size. LV systolic function is borderline normal with EF of 50-55%. No regional wall motion abnormalities. Grade 1 diastolic dysfunction Right Ventricle The right ventricle is normal in size and function. Right Atrium The right atrium is normal in size. Left Atrium The left atrium is enlarged Mitral Valve Mild mitral annular calcification is noted without significant stenosis or prolapse. There is trace mitral regurgitation. Aortic Valve Structurally normal aortic valve without significant sclerosis or stenosis. There is no aortic regurgitation. Tricuspid Valve Structurally normal tricuspid valve without significant stenosis or regurgitation. Insufficient TR jet to calculate RVSP Pulmonic Valve Structurally normal pulmonic valve without significant stenosis. There is no pulmonic regurgitation. Pericardium Normal pericardium without effusion. Aorta Normal ascending aorta dimension. CONCLUSIONS LV systolic function is borderline normal with EF of 50-55% Grade 1 diastolic dysfunction Left atrium is enlarged Trace mitral regurgitation Compared to prior echocardiogram from 12/28/2019, no significant changes are noted Raymond Wright MD (Electronically Signed) Final Date: 29 Dec 2020 16:00 S
[2020-12-29 07:03] LABS: Glucose Point of Care 85 mg/dL (70-110)
--- NOTE | 2020-12-29 07:59 | USCV_ITS ---
Corie Tomas Age: 80 Gender: F : 1940 Exam Date: 12/29/2020 10:04 Ordering Phys: Kirby Charles MD Technologist: Nadir Manzo Exam Location: [facility] – [place] Indication: EDEMA HISTORY: Lower extremity pain. PROCEDURES: The venous duplex Doppler examination of both lower extremities was performed in the standard fashion. Venous duplex imaging was performed in only the left lower extremity. The following venous structures were evaluated: common femoral vein, profunda vein, proximal portion of the greater saphenous vein, superficial femoral vein, and the popliteal vein. Bilaterally, the common femoral, superficial femoral, profunda femoral, popliteal, posterior tibial, greater saphenous veins, and the peroneal trunk were identified and interrogated in the standard fashion. These veins were found to be easily compressible with spontaneous blood flow. No evidence of insufficiency or thrombus noted. FINDINGS: Normal 2-D Doppler and augmentation and compressibility throughout the lower extremity venous structures. Additional imaging through the proximal calf veins also reveals no thrombus. Limited evaluation of the greater saphenous vein is patent with no thrombus.. The veins were found to be easily compressible with spontaneous blood flow. Non pulsatile flow pattern. CONCLUSIONS No evidence of DVT in the above-mentioned identifiable veins. Dr Fabrizio Zhu MD [facility] (Electronically Signed) Final Date: 30 Dec 2020 19:52 S
[2020-12-29] MEDS: meclizine 25 mg tablet PO (08:22)
[2020-12-29] MEDS: isosorbide mononitrate ER 30 mg Tablet PO (08:22)
[2020-12-29] MEDS: sodium polystyrene sulfonate 15 gm/60 mL Btl PO (08:22)
[2020-12-29] MEDS: amlodipine 10 mg Tablet PO (08:22)
[2020-12-29] MEDS: dextrose 50% syringe 50 mL 25 ML IVP (08:23)
[2020-12-29] MEDS: insulin regular-human 10 UNIT in SYRINGE 1 EACH IVP (09:21)
--- NOTE | 2020-12-29 10:17 | PC.CHAP ---
Pastoral Care Encounter/Spiritual Assessment Type of Contact [X] Declined choir member visit [] Patient/Family/Request visit [] Outpatient visit [] Follow-up visit [] Physician referral [] Code/Alert [] Routine visit [] Staff referral [] Actively dying [] Patient sleeping [] Family support [] [] Out of room [] Palliative care [] [] Receiving care in room [] Pre-surgical visit [] Trauma [] Long length of stay [] ICU visit [] Other: Relational/Emotional Strength [] Patient feels connected with others/family/visitors/staff [] Distress [] Loneliness/isolation [] Abandonment Spirituality of Patient [] Person of Heavenly [] Attends Adventist of their Heavenly [] Believes in Prayer [] Reads Bible or Buddhist materials [] There are Spiritual issues to be addressed Timber Setter Interventions [] Prayer [] Active listening [] Non-anxious presence [] Spiritual/emotional support [] Crisis/trauma care [] Spiritual counseling [] Bereavement support [] Provided bereavement packet [] Provided Bible/devotional materials [] Provided toy/stuffed animal, coloring book to patient or family member [] Provided Communion [] Anointing/[place] [] Salvation [] Completed spiritual assessment [] Other: Impact on Illness or Injury [] Angry [] Fearful [] Anxious [] Often cries [] Exhaustion [] Unable to work [] Unable to attend zoroastrianism [] Unable to walk/stand [] Unable to read [] Unable to drive [] Unable to eat/drink [] Unable to sleep [] Unable to be with family [] Patient intubated [] Other: Summary Declined choir member visit Time spent with patient 5 mins
[2020-12-29 11:56] LABS: Glucose Point of Care 92 mg/dL (70-110)
[2020-12-29 11:56] LABS: Glucose Point of Care 48 mg/dL (70-110)
--- NOTE | 2020-12-29 13:09 | PM.PN ---
Subjective Subjective: Interval history: She was seen and examined this morning, denies any chest pain, dizziness, shortness of breath. Hyperkalemia is improving. Her other vitals and labs have been reviewed. Vitals/I&O/Wt Last Vital Signs Temp 98.0 F 12/29/20 08:00 Pulse 87 12/29/20 10:28 Resp 20 H 12/29/20 12:18 BP 157/99 12/29/20 10:28 Pulse Ox 97 12/29/20 10:28 12/28/20 12/29/20 12/29/20 22:59 06:59 14:59 Intake Total 60 / 120 240 / 240 Output Total 800 / 800 Balance 60 / 60 59 / 119 -560 / -560 Weight last 48 hrs Weight 68.356 kg Physical Exam Const: COMMON NORMALS: patient oriented x3 HENMT: COMMON NORMALS: normocephalic and atraumatic HEAD & SCALP: normocephalic and atraumatic Chest: CHEST: Yes Symmetrical chest wall rise Resp: COMMON NORMALS: clear to auscultation bilaterally EFFORT & INSPECTION: Yes symmetric chest movement AUSCULTATION: clear to auscultation bilaterally Cardio: COMMON NORMALS: regular rate, regular rhythm, S1 normal heart sound present, S2 normal heart sound present, No gallops present (Cardio), No murmurs present (Cardio), No rub (Cardio) and Peripheral pulses 2+ throughout RATE: regular rate RHYTHM: regular rhythm HEART SOUNDS: S1 normal heart sound present and S2 normal heart sound present PERIPHERAL PULSES: Peripheral pulses 2+ throughout GI: COMMON NORMALS: Normal to inspection, nondistended, normoactive bowel sounds present, Soft to palpation, non-tender, No hepatosplenomegaly present and no masses AUSCULTATION: Yes normoactive bowel sounds PALPATION: Yes Soft to palpation and Yes No hepatosplenomegaly present RECTAL EXAM: deferred Extremity: COMMON NORMALS: no clubbing, cyanosis or edema and no pedal edema Neuro: COMMON NORMALS: patient oriented x3 Data : 12/29/20 03:47 12/29/20 03:47 A&P Assessment and plan (1) Acute hyperkalemia: Patient has received dextrose, insulin and Kayexalate in the ER.A.m. serum potassium is 6.1. Plan is to repeat regular insulin 10 u, dextrose, and Kayexalate. Monitor BMP Telemetry Status: Acute (2) Syncope: Likely vasovagal. It is possible that the patient was experiencing vertigo, but she is a poor historian. She has been kept on meclizine TID as needed Orthostatic vital signs: Negative Fall precautions Telemetry Carotid Doppler: Bilateral ICA stenosis less than 50%. 2D echo: Status: Acute (3) Chest pain: Atypical chest pain likely musculoskeletal, as it is reproducible. Troponins Trend Negative : She has chronically elevated troponin. 2D Echo: Continue Imdur 30 mg p.o. daily Sublingual nitro Possible stress test Status: Acute (4) Anemia: Macrocytic anemia: Anemia panel B12 Folic acid Monitor CBC Transfuse to maintain hemoglobin greater than 7 Status: Acute (5) Metabolic acidosis: Likely secondary to underlying CKD Status: Acute (6) Hypertension: Status: Chronic Qualifiers: Hypertension type: essential hypertension Qualified Code(s): I10 - Essential (primary) hypertension (7) Diabetes: Status: Chronic Qualifiers: Chronic kidney disease stage: stage 4 (severe) Diabetes mellitus complication detail: with chronic kidney disease Diabetes mellitus complication status: with kidney complications Diabetes mellitus assisted insulin use: with assisted use Diabetes mellitus type: type 2 Qualified Code(s): E11.22 - Type 2 diabetes mellitus with diabetic chronic kidney disease; N18.4 - Chronic kidney disease, stage 4 (severe); Z79.4 - shelter (current) use of insulin (8) Chronic kidney disease (CKD), stage IV (severe): Status: Chronic (9) Von Willebrands disease: Status: Chronic (10) Elevated d-dimer: Status: Acute Additional A&P Information Code Status :Full code DVT PPX: SCDS Attestations Medical Necessity Statement*: Patient needs to be hospital for management of hyperkalemia, chest pain, syncope. Coding Level of Care Code Acute Architectural Administrative Assistant for g Fwd Exam Detailed Diagnoses Acute hyperkalemia E87.5 Syncope R55 Chest pain R07.9 Anemia D64.9 Metabolic acidosis E87.2 Hypertension I10 Hypertension type: essential hypertension Diabetes E11.22; N18.4; Z79.4 Chronic kidney disease stage: stage 4 (severe) Diabetes mellitus complication detail: with chronic kidney disease Diabetes mellitus complication status: with kidney complications Diabetes mellitus manager long term care insulin use: with manager long term care use Diabetes mellitus type: type 2 Chronic kidney disease (CKD), stage IV (severe) N18.4 Von Willebrands disease D68.0 Elevated d-dimer R79.89
[2020-12-29 16:44] LABS: Glucose Point of Care 160 mg/dL (70-110)
--- NOTE | 2020-12-29 18:20 | USCV_ITS ---
KanuCorie long Age: 80 Gender: F : 1940 Exam Date: 12/29/2020 06:07 Ordering Phys: Kirby Charles MD Technologist: Lisa Barr Exam Location: [facility] Indication: syncope Risk Factors: Previous Vascular Surgery: Right Brachial BP: / Left Brachial BP: / Right Left Velocity (cm/s) Spectral Plaque Velocity (cm/s) Spectral Plaque Syst/Diast Broadening Syst/Diast Broadening 59.40/ 9.70 Prox CCA 42.80 / 10.30 59.40/ 13.80 Mid CCA 54.90 / 15.40 57.30/ 20.00 Distal CCA 54.90 / 17.30 76.80/ 30.10 Prox ICA 41.20 / 15.10 100.20/35.10 Mid ICA 50.70 / 17.40 68.50/ 25.10 Distal ICA 58.70 / 17.40 122.10 ECA 64.20 1.69 ICA/CCA 1.07 Antegrade Vertebral Antegrade 23.90/ 6.50 cm/s 31.70/ 9.50 cm/s Tri Subclavian Tri 73.00 84.00 FINDINGS Comparison: none available. Quality limited by technique. No significant elevation of systolic or diastolic velocities. Waveforms are turbulent. Diffuse, moderate bilateral scattered calcified plaque and intimal thickening throughout the common carotid arteries and extending through the bifurcation. CONCLUSIONS Bilateral ICA stenosis less than 50%. Diffuse moderate atherosclerosis. Dr. Charissa Nielson DO (Electronically Signed) Final Date: 29 Dec 2020 08:18 S
[2020-12-29] MEDS: LORazepam 0.5 mg Tablet PO (18:21)
[2020-12-29] MEDS: ondansetron 2 mg/ML SDV 2 mL 4 MG IVP (18:22)
[2020-12-29] MEDS: diclofenac 1% Topical Gel 100 gm TOPICAL (20:08)
[2020-12-29] MEDS: sertraline 50 mg Tablet 25 MG PO (20:10)
[2020-12-29] MEDS: trazodone 150 mg Tablet PO (20:10)
[2020-12-29] MEDS: atorvastatin 40 mg Tablet 80 MG PO (20:10)
[2020-12-29] MEDS: insulin glargine 100 units/1 mL 20 UNIT SUBCUT (20:13)
[2020-12-29 20:43] LABS: Glucose Point of Care 164 mg/dL (70-110)
[2020-12-30] VITALS (9 sets, daily range): BP systolic 124–179; BP diastolic 52–78; PULSE 0–86; RESP 14–20; TEMP 36.7–36.8; O2SAT 96–98
[2020-12-30] MEDS: oxyCODONE-APAP 5-325 mg Tablet 1 TAB PO ×3 (00:19→15:52)
[2020-12-30 05:41] LABS: Basophils % 0.7 %; Eosinophils # 0.2 10^3/uL (0.0-0.8); Eosinophils % 4.1 %; Hematocrit 28.5 % (37.0-47.0); Hemoglobin 8.6 g/dL (11.5-15.3); Lymphocytes % 35.1 %; Mean Corpuscular HGB Conc 30.2 g/dL (30.0-36.0); Mean Corpuscular Hemoglobin 30.7 pg (28.0-34.0); Mean Corpuscular Volume 101.8 fL (81-99); Mean Platelet Volume 9.1 fL (7.4-10.4); Monocytes # 0.5 10^3/uL (0.2-0.9); Monocytes % 8.8 %; Neutrophils # 2.97 10^3/uL (1.8-7.7); Nucleated Red Blood Cells % 0 %; Platelet Count 230 10^3/cmm (130-400); Red Cell Distribution Width 13.1 % (12.1-15.1); White Blood Count 5.8 10^3/uL (4.0-10.0)
--- NOTE | 2020-12-30 05:46 | PC.NURSE ---
Patient refusing telemetry.
[2020-12-30 06:32] LABS: Folate Level 12.9 ng/mL (4.8-37.3)
[2020-12-30 06:40] LABS: Anion Gap 11.8 (5-19); Blood Urea Nitrogen 34 mg/dL (8-23); Carbon Dioxide 20 mmol/L (22-29); Chloride 111 mmol/L (98-107); Ferritin 48 ng/mL (15-150); Glucose 74 mg/dL (65-115); Iron 43 ug/dL (37-145); Osmolality Calculated 290 mOsm/kg (285-295); Percent Saturation 20.7 % (20-50); Potassium 5.8 mmol/L (3.5-5.1); Sodium 137 mmol/L (136-145); Total Iron Binding Capacity 207 mcg/dl; Unsaturated Iron Binding 164 ug/dL (112-347); Vitamin B12 196 pg/mL (232-1245)
[2020-12-30 06:46] LABS: Glucose Point of Care 85 mg/dL (70-110)
[2020-12-30] MEDS: isosorbide mononitrate ER 30 mg Tablet PO (07:38)
[2020-12-30] MEDS: amlodipine 10 mg Tablet PO (07:39)
[2020-12-30 11:25] LABS: Glucose Point of Care 176 mg/dL (70-110)
--- NOTE | 2020-12-30 12:02 | P.DS_ITS ---
Discharge Providers Date of Admission: 12/28/20 16:18 Date of Discharge: December 30, 2020 Attending Provider at Admission: Kirby Charles MD Attending Provider at Discharge: Kirby Charles MD Primary Care Provider: Hardy Saab DO Diagnoses at Discharge Discharge Diagnosis (1) Acute hyperkalemia: Status: Resolved (2) Syncope: Status: Resolved (3) Chest pain: Status: Resolved (4) Anemia: Status: Acute (5) Hypertension: Status: Chronic Qualifiers: Hypertension type: essential hypertension Qualified Code(s): I10 - E ssential (primary) hypertension (6) Diabetes: Status: Chronic Qualifiers: Chronic kidney disease stage: stage 4 (severe) Diabetes mellitus complication detail: with chronic kidney disease Diabetes mellitus complication status: with kidney complications Diabetes mellitus alf insulin use: with trauma surgeon use Diabetes mellitus type: type 2 Qualified Code(s): E11.22 - Type 2 diabetes mellitus with diabetic chronic kidney disease; N18.4 - Chronic kidney disease, stage 4 (severe); Z79.4 - senior care (current) use of insulin (7) Chronic kidney disease (CKD), stage IV (severe): Status: Chronic (8) Von Willebrands disease: Status: Chronic Permanent problem details: Pt reported, PCP not not have diagnosis in her records (9) Elevated d-dimer: Status: Acute (10) Vitamin B12 deficiency: Status: Acute Reason for Visit Reason for Visit: FALL, VERTIGO, HEMOPHILIAC Hospital Course Hospital Course 80 year old female with past medical history of chronic kidney disease stage IV, von Willebrand disease (not confirmed) , insulin-dependent diabetes, came in with chief complaint of After experiencing a fall at her assisted ( [facility] ), at the time of fall she was complaining of, spinning of her room as well as spinning of her head, because of this she fell on the ground, and hit her head. There was brief loss of consciousness also.She was also complaining of left- sided chest pain going on for the last multiple days, radiating to her left arm. Upon arrival in the ER she was worked up for above-mentioned problem. Imaging studies: CT head without contrast: No acute intracranial pathology. X-ray chest: No infiltrates, no effusion, pulmonary vascularity is normal, no pneumothorax. XR wrist LT 2V:Negative left wrist. EKG: Sinus rhythm,RBBB,LAFB (unchanged from the past ) Pertinent labs: CBC: WBC: 7.1, H&H: 9.1/30.4, platelet count: 233 , CMP: Serum sodium:134, serum potassium:6.7, random blood glucose:136, BUN/creatinine: 38/ 2.3 Troponin T:Chronically elevated no significant change from the baseline. proBNP:753 , D-dimer: 2.53 Urinalysis: Clean.She was admitted for the management of acute hyperkalemia,she received Hyperkalemia cocktail twice along with kayxelate, at the time of discharge her serum K was 5.8,Lisinopril.For her h/o syncope , possible Vertigo ( as she is a poor historiann . B/L Carotid doppler showed < 50 % stenosis, 2D echo was LV systolic function is borderline normal with EF of 50-55% Grade 1 diastolic dysfunction , Left atrium is enlarged Trace mitral regurgitation.She was given meclizine which helped her,she is being discharged on PRN Meclizine. Telemetry monitoring was unremarkable.No recurrent episode in the hospital.Her CKD Stage IV was stable. During the hospital stay further work up revealed Mild Vitamin B12 Deficiency for which she has been started on cynocobalamin 1000 mcg po daily tablets for 3 months and she will need repeat Serum B12 measurement. for her chest pain likely atypical,possibilty of CSA cannot be conclusively ruled out,she was continued on her home dose of IMDUR 30 MG PO Daily along with statin. She was insistent on going back to assisted and do not want any further work up. So far she has remained stable during the entire hospital stay.She will continue to follow with her pcp as outpatient. Physical Exam Const: COMMON NORMALS: patient oriented x3 HENMT: COMMON NORMALS: normocephalic and atraumatic HEAD & SCALP: normocephalic and atraumatic Chest: CHEST: Yes Symmetrical chest wall rise Resp: COMMON NORMALS: clear to auscultation bilaterally EFFORT & INSPECTION: Yes symmetric chest movement AUSCULTATION: clear to auscultation bilaterally Cardio: COMMON NORMALS: regular rate, regular rhythm, S1 normal heart sound present, S2 normal heart sound present, No gallops present (Cardio), No murmurs present (Cardio), No rub (Cardio) and Peripheral pulses 2+ throughout RATE: regular rate RHYTHM: regular rhythm HEART SOUNDS: S1 normal heart sound present and S2 normal heart sound present PERIPHERAL PULSES: Peripheral pulses 2+ throughout GI: COMMON NORMALS: Normal to inspection, nondistended, normoactive bowel sounds present, Soft to palpation, non-tender, No hepatosplenomegaly present and no masses AUSCULTATION: Yes normoactive bowel sounds PALPATION: Yes Soft to palpation and Yes No hepatosplenomegaly present RECTAL EXAM: deferred Extremity: COMMON NORMALS: no clubbing, cyanosis or edema and no pedal edema Neuro: COMMON NORMALS: patient oriented x3 Discharge Data Data Completed and Pending: Completed Studies During Hospitalization Category Date Time Status CT cervical spin wo con* [id number] Urge nt Cat Scan 12/28/20 13:[address] facial bones w o con* [id number] Urgen t Cat Scan 12/28/20 13:[address] head wo con* 7 0450 Urgent Cat Scan 12/28/20 13:15 Completed XR chest 1V sukhwinder ble [id number] Urgent Exams 12/28/20 13:20 Completed XR hand LT 2V 731 20 Stat Exams 12/28/20 13:15 Completed XR wrist LT 2V 73 100 Stat Exams 12/28/20 13:15 Completed CV carotid duplex BI* [id number] Routine Ultrasound 12/29/20 18:20 Completed CV echo complete* [id number] Routine Ultrasound 12/29/20 07:00 Completed Pending at discharge Category Date Time Status Basic Metabolic P art AM LABS Lab 12/31/20 04:00 Ordered Complete Blood Co unt w/Auto AM LABS Lab 12/31/20 04:00 [place] [id number] Routin e Ultrasound 12/29/20 07:59 Taken Labs from last 24 hours 12/30/20 12/30/20 12/30/20 10:55 06:30 04:10 WBC RBC Hgb Hct MCV MCH MCHC RDW Plt Count MPV Neut % (Auto) Lymph % (Auto) [place] % (Auto) Eos % (Auto) Baso % (Auto) Neut # (Auto) Lymph # (Auto) [place] # (Auto) Eos # (Auto) Baso # (Auto) Nucleated RBC % (a uto) Nucleated RBCs # Sodium 137 Potassium 5.8 H Chloride 111 H Carbon Dioxide 20 L Anion Gap 11.8 BUN 34 H Creatinine 2.6 H GFR Calculation Not Reportable Glucose 74 POC Glucose 176 H 85 Calculated Osmolal ity 290 Calcium 8.0 L Iron 43 TIBC 207 % Saturation 20.7 Unsat Iron Binding 164 Ferritin 48 Vitamin B12 196 L Folate 12/30/20 12/30/20 12/29/20 04:10 04:10 19:52 WBC 5.8 RBC 2.80 L Hgb 8.6 L Hct 28.5 L MCV 101.8 H MCH 30.7 MCHC 30.2 RDW 13.1 Plt Count 230 MPV 9.1 Neut % (Auto) 51.0 Lymph % (Auto) 35.1 [place] % (Auto) 8.8 Eos % (Auto) 4.1 Baso % (Auto) 0.7 Neut # (Auto) 2.97 Lymph # (Auto) 2.0 [place] # (Auto) 0.5 Eos # (Auto) 0.2 Baso # (Auto) 0.0 Nucleated RBC % (a uto) 0 Nucleated RBCs # 0.0 Sodium Potassium Chloride Carbon Dioxide Anion Gap BUN Creatinine GFR Calculation Glucose POC Glucose 164 H Calculated Osmolal ity Calcium Iron TIBC % Saturation Unsat Iron Binding Ferritin Vitamin B12 Folate 12.9 12/29/20 16:41 WBC RBC Hgb Hct MCV MCH MCHC RDW Plt Count MPV Neut % (Auto) Lymph % (Auto) [place] % (Auto) Eos % (Auto) Baso % (Auto) Neut # (Auto) Lymph # (Auto) [place] # (Auto) Eos # (Auto) Baso # (Auto) Nucleated RBC % (a uto) Nucleated RBCs # Sodium Potassium Chloride Carbon Dioxide Anion Gap BUN Creatinine GFR Calculation Glucose POC Glucose 160 H Calculated Osmolal ity Calcium Iron TIBC % Saturation Unsat Iron Binding Ferritin Vitamin B12 Folate Vitals: Last Vital Signs Temp 98.2 F 12/30/20 10:51 Pulse 60 12/30/20 10:51 Resp 14 12/30/20 10:51 BP 124/78 12/30/20 10:51 Pulse Ox 98 12/30/20 10:51 Discharge Plan Discharge Patient Disposition: Home Condition: Stable Prescriptions: New meclizine 25 mg tablet 25 mg PO TID PRN (Reason: BPPV) Qty: 10 RF: 0 cyanocobalamin (vitamin B-12) 1,000 mcg capsule 1,000 mcg PO DAILY 60 Days Qty: 60 RF: 0 Continued insulin aspart U-100 [Novolog U-100 Insulin aspart] 100 unit/mL Solution See Rx Instructions .ROUTE .COMPLEX Qty: 10 RF: 0 lorazepam 0.5 mg Tablet 0.5 mg PO BID PRN (Reason: Anxiety) Qty: 30 RF: 0 polyethylene glycol 3350 [Miralax] 17 gram Powder In Packet 17 g PO DAILY PRN (Reason: Constipation) RF: 0 magnesium hydroxide [Milk of Magnesia] 400 mg/5 mL Suspension 30 ml PO PRN RF: 0 bisacodyl 10 mg Suppository 10 mg OK DAILY PRN (Reason: Constipation) RF: 0 Enema Disposable 19-7 gram/118 mL Enema 118 ml OK DAILY PRN (Reason: Constipation) RF: 0 sennosides-docusate sodium 8.6-50 mg tablet 1 tab PO BID@0800,1999 RF: 0 rosuvastatin 40 mg tablet 40 mg PO BEDTIME@1999 RF: 0 isosorbide mononitrate 30 mg Tablet Extended Release 24 Hr 30 mg PO DAILY@0800 RF: 0 ondansetron HCl [Zofran] 4 mg Tablet 4 mg PO Q4H PRN (Reason: NAUSEA/VOMITING) RF: 0 fexofenadine 180 mg Tablet 180 mg PO DAILY@0800 RF: 0 nitroglycerin 0.4 mg Tablet, Sublingual 0.4 mg SUBLINGUAL . DIRECTED PRN (Reason: Chest Pain) RF: 0 sertraline 25 mg Tablet 25 mg PO DAILY@1999 RF: 0 lisinopril 40 mg Tablet 40 mg PO DAILY@0800 RF: 0 diclofenac sodium [Voltaren] 1 % Gel See Rx Instructions .ROUTE .COMPLEX RF: 0 trazodone 150 mg tablet 150 mg PO BEDTIME@1999 RF: 0 hydrocodone-acetaminophen 7.5-325 mg tablet 1 tab PO Q6H PRN (Reason: Pain) RF: 0 Lantus Solostar U-100 Insulin 100 unit/mL (3 mL) insulin pen 20 unit SUBCUT DAILY@20 RF: 0 amlodipine 10 mg tablet 10 mg PO DAILY@08 RF: 0 Discharge Orders: Discharge Order (Routine); Ordered 12/30/20 Ordered By: Kirby Charles Referrals: Hardy Saab DO [Primary Care Provider] - 2 weeks Discharge Diet: Low Salt Discharge Activity: Increase activity as tolerated Patient Instructions: Meclizine (By mouth), Hyperkalemia (DC), Opioid Safety Discharge Attestations Time Spent in Discharge Care*: less than 30 min Specific Discharge Activities: educating patient, educating and/or supporting family/caregiver, discussing with pcp/other providers, discussing with case manager specialist/social workers/dc planners, documenting/other paperwork and evaluating patient/reviewing data Status at Discharge: Cognitive status at discharge: other (Grossly cognition is intact today) , Behavioral status at discharge: cooperative , Quality Metrics Clinical Quality Measures During this hospital stay, did patient experience: None Coding Level of Care Code Acute Chg FW DC note Exam Detailed Diagnoses Acute hyperkalemia E87.5 Syncope R55 Chest pain R07.9 Anemia D64.9 Hypertension I10 Hypertension type: essential hypertension Diabetes E11.22; N18.4; Z79.4 Chronic kidney disease stage: stage 4 (severe) Diabetes mellitus complication detail: with chronic kidney disease Diabetes mellitus complication status: with kidney complications Diabetes mellitus trauma surgeon insulin use: with trauma surgeon use Diabetes mellitus type: type 2 Chronic kidney disease (CKD), stage IV (severe) N18.4 Von Willebrands disease D68.0 Elevated d-dimer R79.89 Vitamin B12 deficiency E53.8
--- NOTE | 2020-12-30 12:23 | PC.NURSE ---
Addendum entered by Ml Rain RN 12/30/20 15:36: Note written at 1223. Occurrence was 1130. At 1145 patient was assisted into a wheelchair and brought to nurse's station to wait for her transportation. Patient is demading to leave the hospital right now . Original Note: Patient very insistent on leaving now. Explained we are waiting on transportation. Patient was found in hallway using a walker to leave the building. Patient walked back to room with physical therapist.
--- NOTE | 2020-12-30 12:30 | PC.NURSE ---
Call placed to Security office for assistance with patient. Patient agitated, voice raised stating we can't keep her a prisoner here.
[2020-12-30] MEDS: LORazepam 0.5 mg Tablet PO (12:38)
--- NOTE | 2020-12-30 15:40 | PC.NURSE ---
At 1300 patient was taken back to her room i the wheelchair. She was accompanied by HOLDEN Francis. Penny has remained with her to provide 1:1 safety observation.
--- NOTE | 2020-12-30 16:20 | PC.NURSE ---
Call placed to [facility] regarding patient's transportation. Was informed patien request was assigned to [facility] and could be up to 2 hours more before transport occurs.
== END 2020-12-30 17:40 | disposition skilled nursing facility (03) | DRG 641 ==
LOC: ER 16:42 → CSU 17:08
PROVIDERS: Internal Medicine; Admitting Provider Internal Medicine; Emergency Provider Family Medicine; PCP Internal Medicine; Visit Provider Internal Medicine
DX: E87.5 Hyperkalemia (principal); N18.4 Chronic kidney disease, stage 4 (severe); R55 Syncope and collapse; E11.22 Type 2 diabetes mellitus with diabetic chronic kidney disease; I12.9 Hypertensive chronic kidney disease with stage 1 through stage 4 chronic kidney disease, or unspecified chronic kidney disease; Z79.4 Long term (current) use of insulin; W18.30XA Fall on same level, unspecified, initial encounter; Y92.129 Unspecified place in nursing home as the place of occurrence of the external cause; M19.90 Unspecified osteoarthritis, unspecified site; E78.5 Hyperlipidemia, unspecified; K21.9 Gastro-esophageal reflux disease without esophagitis; R07.89 Other chest pain; D51.9 Vitamin B12 deficiency anemia, unspecified; E87.2 Acidosis; Z79.891 Long term (current) use of opiate analgesic
CPT/HCPCS: 36415; 36416; 70450; 70486; 71045; 72125; 73100; 73120; 80048; 80053; 81001; 82607; 82728; 82746; 82962; 83540; 83550; 83880; 84132; 84484; 85025; 85378; 85610; 85730; 93005; 93306; 93880; 93970; 96365; 96372; 96375; 99285; J0610; J1815 ×2; J2405; J8597

== ENCOUNTER 2021-02-24 23:28 | Emergency (ER) | payer MEDICARE, MEDICAID, SELFPAY ==
[2021-02-24 23:32] VITALS: BP 000/00; PULSE 20; RESP 44; TEMP 36.5; O2SAT 95; BMI 31.6
[2021-02-24] MEDS: LORazepam 2 mg/mL INJ 1 mL 1 MG IVP (23:54)
[2021-02-24] MEDS: ondansetron 2 mg/ML SDV 2 mL 4 MG IVP (23:55)
[2021-02-24] MEDS: morphine 4 mg/mL SDV 1 mL IVP (23:55)
--- NOTE | 2021-02-25 00:12 | ED_ITS ---
HPI - General Adult General: Chief complaint: Cardiac Arrest/CPR Stated complaint: UNRESPONSIVE Time Seen by Provider: 02/24/21 23:29 Source: EMS Mode of arrival: EMS Limitations: altered mental status History of Present Illness: HPI narrative: 80-year-old female with a history of sick sinus syndrome that was un[facility] tonight at jail. They called EMS for severe bradycardia and unresponsiveness. When EMS arrived patient was unresponsive tachypneic and in severe distress. Her heart rate was 15-20. Patient arrived here and heart rate is 15 was given atropine. Per EMS patient has refused pacemaker placement in the past. She is DNR. No known fever. No history available from patient due to unresponsiveness. Review of Systems General: Reports: ROS unobtainable due to mental status PFSH ED PFSH: Medical History (Updated 02/25/21 @ 01:45 by Stephani Hays MD) Acute hyperkalemia Anemia Bifascicular block Chest pain Chronic kidney disease (CKD), stage IV (severe) Degenerative joint disease Diabetes Dizziness Dyslipidemia Elevated d-dimer GERD (gastroesophageal reflux disease) Hypertension Metabolic acidosis Syncope Von Willebrands disease Pt reported, PCP not not have diagnosis in her records Surgical History H/O cardiac catheterization 2009, normal EF nonsignificant irregular coronary artery disease Hx of cholecystectomy S/P cataract surgery Status post open reduction and internal fixation (ORIF) of fracture left hip, 12/2019, Dr Austin Family History Denies family history of CAD (coronary artery disease) Clotting disorder Chronic kidney disease (CKD) Social History Smoking and tobacco status: never smoked Alcohol intake: never Lives independently: Yes Additional social history: Her sister has power of admitted attorneys named Sujatha Physical Exam Const: COMMON NORMALS: negative for patient oriented x3 and negative for alert EXAM LIMITATIONS: altered mental status GENERAL APPEARANCE: in distress an d ill appearing HENMT: COMMON NORMALS: normocephalic and atraumatic HEAD & SCALP: normocephalic and atraumatic Eye: COMMON NORMALS: Equal, round and reactive pupils present and EOMs intact bilaterally PUPIL: Yes Equal, round and reactive pupils present Neck/C-Spine: COMMON NORMALS: full ROM and supple Chest: COMMONS NORMALS: normal inspection of the chest and normal palpation of entire chest wall Resp: EFFORT & INSPECTION: Yes tachypneic and Yes respiratory distress AUSCULTATION: rales Cardio: COMMON NORMALS: No murmurs present (Cardio) RATE: bradycardic GI: COMMON NORMALS: Normal to inspection, nondistended, normoactive bowel sounds present, Soft to palpation, non-tender and no masses PALPATION: Yes Soft to palpation Extremity: COMMON NORMALS: normal to inspection and full ROM Neuro: COMMON NORMALS: negative for patient oriented x3 SENSORIUM/ORIENTATION: No alert Psych: COMMON NORMALS: cooperative; negative for mental status grossly normal and negative for Normal thought process present THOUGHT PROCESS: abnormal Skin: COMMON NORMALS: no rashes or lesions noted and no wounds GENERAL SKIN EXAM: no rashes or lesions noted Course Reevaluation(s): Reevaluation #1: Patient arrived unresponsive and extremely bradycardic. Patient's also very ill-appearing. Her heart rate is only 15 did give a dose of atropine. Patient had refused pacemakers in the past. I went and spoke to her power of admitted attorneys her sister over the phone and she and I agreed to make patient comfort care at this point. Time: 23:26 Vital Signs: Vital signs: Vital Signs Temperature 97.7 F 02/24/21 23:32 Pulse Rate 20 L 02/24/21 23:32 Respiratory Rate 30 H 02/25/21 02:13 Blood Pressure 000/00 02/24/21 23:32 Pulse Oximetry 97 02/25/21 02:13 MDM - General Adult MDM Narrative: Medical decision making narrative: Patient presents here with severe bradycardia altered male status. Patient's prior return he is in the room and I spoke to the home phone as well spoke to her at length in the room she states that her sister like to be comfort care. I spoke to jail and will discharge back to jail on comfort care. EKG Data^: EKG 1: Attestation: I personally reviewed and interpreted this EKG as follows: EKG interpretation date: 02/24/21 EKG interpretation time: 23:36 Interpretation: extreme bradycardia hr [address] elevation qrs 125 qtc 232 Discharge Plan Discharge Patient Disposition: Home Clinical Impression: Bradycardia Condition: Stable Prescriptions: No Action insulin aspart U-100 [Novolog U-100 Insulin aspart] 100 unit/mL Solution See Rx Instructions .ROUTE .COMPLEX Qty: 10 RF: 0 lorazepam 0.5 mg Tablet 0.5 mg PO BID PRN (Reason: Anxiety) Qty: 30 RF: 0 polyethylene glycol 3350 [Miralax] 17 gram Powder In Packet 17 g PO DAILY PRN (Reason: Constipation) RF: 0 magnesium hydroxide [Milk of Magnesia] 400 mg/5 mL Suspension 30 ml PO PRN RF: 0 bisacodyl 10 mg Suppository 10 mg AK DAILY PRN (Reason: Constipation) RF: 0 Enema Disposable 19-7 gram/118 mL Enema 118 ml AK DAILY PRN (Reason: Constipation) RF: 0 sennosides-docusate sodium 8.6-50 mg tablet 1 tab PO BID@0800,1999 RF: 0 rosuvastatin 40 mg tablet 40 mg PO BEDTIME@1999 RF: 0 isosorbide mononitrate 30 mg Tablet Extended Release 24 Hr 30 mg PO DAILY@0800 RF: 0 meclizine 25 mg tablet 25 mg PO TID PRN (Reason: BPPV) Qty: 10 RF: 0 cyanocobalamin (vitamin B-12) 1,000 mcg capsule 1,000 mcg PO DAILY 60 Days Qty: 60 RF: 0 ondansetron HCl [Zofran] 4 mg Tablet 4 mg PO Q4H PRN (Reason: NAUSEA/VOMITING) RF: 0 fexofenadine 180 mg Tablet 180 mg PO DAILY@0800 RF: 0 nitroglycerin 0.4 mg Tablet, Sublingual 0.4 mg SUBLINGUAL . DIRECTED PRN (Reason: Chest Pain) RF: 0 sertraline 25 mg Tablet 25 mg PO DAILY@1999 RF: 0 lisinopril 40 mg Tablet 40 mg PO DAILY@0800 RF: 0 diclofenac sodium [Voltaren] 1 % Gel See Rx Instructions .ROUTE .COMPLEX RF: 0 trazodone 150 mg tablet 150 mg PO BEDTIME@1999 RF: 0 hydrocodone-acetaminophen 7.5-325 mg tablet 1 tab PO Q6H PRN (Reason: Pain) RF: 0 Lantus Solostar U-100 Insulin 100 unit/mL (3 mL) insulin pen 20 unit SUBCUT DAILY@20 RF: 0 amlodipine 10 mg tablet 10 mg PO DAILY@08 RF: 0 Discharge Orders: Discharge ED (Routine); Ordered 02/25/21 Ordered By: Stephani Hays Referrals: Hardy Saab DO [Primary Care Provider] - Discharge Diet: Advance as tolerated Discharge Activity: Resume usual activity Patient Instructions: Bradycardia (ED) Coding Level of Care Code ED Boiler/Chiller Technician for Chg Fwd Exam Comprehensive
[2021-02-25] MEDS: morphine 4 mg/mL SDV 1 mL IVP (00:45)
[2021-02-25 02:13] VITALS: RESP 30; O2SAT 97
== END 2021-02-25 02:22 | disposition home or self-care (01) ==
PROVIDERS: Emergency Provider Emergency Medicine; PCP Internal Medicine
DX: R00.1 Bradycardia, unspecified (principal); Z79.4 Long term (current) use of insulin; E11.22 Type 2 diabetes mellitus with diabetic chronic kidney disease; I12.9 Hypertensive chronic kidney disease with stage 1 through stage 4 chronic kidney disease, or unspecified chronic kidney disease; N18.4 Chronic kidney disease, stage 4 (severe); E78.5 Hyperlipidemia, unspecified
CPT/HCPCS: 96374; 96375; 99284; J0461; J2060; J2270; J2405